=== PATIENT | female | born 1965 | race Two or more races ===

== ENCOUNTER 2020-05-18 12:02 | Outpatient (REF) | payer MEDICAID, SELFPAY | END 2020-05-18 12:03 | disposition home or self-care (01) | LOC: HO.LAB 12:02 | PROVIDERS: Visit Provider Internal Medicine | DX: Z20.828 Contact with and (suspected) exposure to other viral communicable diseases (principal) | CPT/HCPCS: C9803; U0003 ==

== ENCOUNTER 2020-07-18 17:21 | Emergency (ER) | payer MEDICAID, SELFPAY ==
[2020-07-18 17:44] VITALS: BP 125/70; PULSE 98; RESP 20; TEMP 37.1; O2SAT 100; BMI 25.0
[2020-07-18] MEDS: Acetaminophen 325 MG TABLET 650 MG PO (17:54)
[2020-07-18 18:24] LABS: Glucose Urine UA NEG (NEG); Leukocyte Esterase Urine 1+ (NEG); Nitrite Urine POS (NEG); PH 5.5 (5.0-8.0); Specific Gravity - Urine >= 1.030 (1.005-1.025); UACC Culture Trigger YES; Urine Blood 1+ (NEG); Urine Ketones NEG (NEG); Urine Protein TRACE MG/DL (NEG-TRACE)
[2020-07-18 18:26] LABS: Appearance Urine HAZY; Color Urine YELLOW
[2020-07-18 18:33] LABS: Bacteria Urine 3+ /LPF; Calcium Oxalate Crystals Urine 1+ /LPF; Squamous Epithelial Cell Urine 1+ /LPF
[2020-07-18 20:00] VITALS: BP 114/67; PULSE 73; RESP 18; TEMP 36.6; O2SAT 100
--- NOTE | 2020-07-18 20:38 | ED.GENADULT ---
HPI - General Adult General Chief complaint: General Medical Stated complaint: ?UTI Time Seen by Provider: 07/18/20 20:47 Source: patient Mode of arrival: ambulatory Limitations: no limitations History of Present Illness HPI narrative: 55-year-old female with past medical history of GERD, anxiety and depression, asthma, bipolar, fibromyalgia, migraines, and osteoarthritis presents with 4 days of bilateral flank pain, suprapubic pain, intermittent fevers and chills, fatigue, malaise and pyuria. She denies chest pain pressure, palpitations, shortness breath, abdominal distention, and edema. She also does not report any abnormal vaginal bleeding or discharge and denies risk for sexually transmitted infection. Related Data Previous Rx's Medication Instructions Recorded cefuroxime axetil 500 mg PO Q12H 7 Days #14 tab 07/18/20 phenazopyridine [Pyridium] 200 mg PO TID PRN #6 tab 07/18/20 Allergies Allergy/AdvReac Type Severity Reaction Status Date / Time codeine [Codeine] Allergy Mild RASH Verified 07/18/20 21:13 Penicillins Allergy Mild RASH Verified 07/18/20 21:13 penicillin V Allergy Unknown hives Verified 07/18/20 21:13 tape adhesive Allergy Mild rash Uncoded 07/18/20 21:13 Review of Systems Review of Systems: Constitutional: Positive Fever, positive Chills ENT/Mouth: No sore throat Eyes: No Eye Pain, No Swelling, No Redness Cardiovascular: No Chest Pain, No SOB Respiratory: No Cough, No Sputum, No Wheezing Gastrointestinal: positive Nausea, no Vomiting, No Diarrhea, positive abdominal pain Genitourinary: positive Dysuria, positive urinary frequency, positive Hematuria, positive Flank Pain, positive hesitancy Musculoskeletal: No joint pain, positive Myalgias Skin: No Skin Lesions, No rash Neuro: No Weakness, No Numbness, No Headache Psych: No Anxiety/Panic, No Depression Heme/Lymph: No Bruising, No Lymphadenopathy Endocrine: No Polyuria, No Polydipsia Yes all other systems are reviewed and are negative [facility] Past Medical History Attestation statement: The following information was validated with the patient. Source: old records reviewed Medical History Acid reflux Anxiety Asthma Bipolar 1 disorder Depression Fibromyalgia Migraine Osteoarthritis Social History Social History Alcohol intake: never Smoking Status: Never smoker Use of substances other than those prescribed or required for medical reasons: No Advance Directives: No Advance Directives Information Provided: No Physical Exam Vital Signs: Vital Signs: Last Vital Signs Temp 98.3 F 07/18/20 21:29 Pulse 74 07/18/20 21:29 Resp 17 07/18/20 21:29 BP 110/51 L 07/18/20 21:29 Pulse Ox 99 07/18/20 21:29 Body Mass Index 25.0 Appearance: Alert. Oriented X3. Mild distress. Eyes: Pupils equal, round and reactive to light. ENT: Pharynx normal. Neck: Normal inspection. Neck supple. CVS: Tachycardic heart rate and rhythm. Pulses normal. Respiratory: No respiratory distress. Breath sounds normal. Abdomen: Soft and tender to suprapubic, bilateral CVA tenderness Skin: Skin warm and dry. Normal skin color. Normal skin turgor. Extremities: No lower extremity edema. Neuro: No motor deficit. No sensory deficit. Course Course Course Narrative: 55-year-old female with past medical history of GERD, anxiety and depression, asthma, bipolar, fibromyalgia, migraines, and osteoarthritis presents with 4 days of bilateral flank pain, suprapubic pain, intermittent fevers and chills, fatigue, malaise and pyuria. Based on patient's symptoms and positive UTI and tachycardic heart rate upon arrival plan is for CBC, Chem 7, lactic, cultures, fluid resuscitation, IV antibiotics and CT scan of the abdomen. Lactic is-0.6, CT scan negative for acute findings requiring emergent intervention. Plan is for discharge home with p.o. antibiotics and Pyridium. Patient verbalized understanding of and agrees to plan of care to discharge home. Medical Decision Making Medical Records Medical records reviewed: Yes I reviewed the patient's medical records. Lab Data Lab results reviewed: Yes I reviewed the patient's lab results. Result diagrams: 07/18/20 21:11 07/18/20 21:11 Labs: Lab Results 07/18/20 07/18/20 07/18/20 Range/Units 17:51 21:11 21:11 WBC 8.7 (4.8-10.8) X10*3/uL RBC 4.74 (4.20-5.50) X10*6/uL Hgb 13.2 (12.0-16.0) g/dl Hct 39.7 (37-47) % MCV 83.8 (80-98) fL MCH 27.8 (27.0-33.0) pg MCHC 33.2 (31.0-35.0) g/dl RDW 13.3 (11.0-16.0) % Plt Count 191 (160-400) X10*3/uL MPV 11.5 (9.4-12.3) fL Immature Gran % (Auto) 0.2 (0.0-0.4) % Neut % (Auto) 70.0 (45-73) % Lymph % (Auto) 23.5 (20-40) % [place] % (Auto) 5.9 (2-11) % Eos % (Auto) 0.3 (0-4) % Baso % (Auto) 0.1 (0-2) % Lymph # (Auto) 2.0 (1.2-4.9) X10*3/uL [place] # (Auto) 0.5 (0.1-1.2) X10*3/uL Eos # (Auto) 0.0 (0.0-0.4) X10*3/uL Baso # (Auto) 0.0 (0.0-0.2) X10*3/uL Abs Immat Gran (auto) 0.02 (0.00-0.03) X10*3/uL Absolute Neuts (auto) 6.1 (2.0-8.3) X10*3/uL Absolute Nucleated RBC 0.000 (0.0-0.012) X10*3/uL Nucleated RBC % (auto) 0.0 (0.0-0.2) /100WBC PT (10.8-13.0) SEC INR (0.9-1.1) APTT (24.1-38.0) SEC Sodium 140 (135-145) mmol/L Potassium 3.9 (3.3-5.1) mmol/L Chloride 106 (96-108) mmol/L Carbon Dioxide 24 (22-29) mmol/L Anion Gap 14 (12-20) BUN 15 (9-16) mg/dL Creatinine 0.81 (0.5-1.4) mg/dL Estim Creat Clear Calc 74.3 Estimated GFR > 60 Random Glucose 90 (60-115) mg/dL Lactic Acid (0.5-2.0) mmol/L Calcium 9.6 (8.4-10.2) mg/dL Total Bilirubin 0.7 (0.0-1.0) mg/dL Direct Bilirubin 0.3 (0.0-0.5) mg/dL AST 24 (5-31) U/L ALT 20 (0-31) U/L Alkaline Phosphatase 68 (39-117) U/L Total Protein 7.3 (6.5-8.0) g/dL Albumin 5.0 (3.5-5.0) g/dL Lipase 15 (8-78) U/L Urine Color YELLOW Urine Appearance HAZY Urine pH 5.5 (5.0-8.0) Ur Specific [place] >= 1.030 H (1.005-1.025) Urine Protein TRACE (NEG-TRACE) MG/DL Urine Glucose (UA) NEG (NEG) MG/DL Urine Ketones NEG (NEG) MG/DL Urine Blood 1+ H (NEG) Urine Nitrite POS H (NEG) Ur Leukocyte Esterase 1+ H (NEG) Urine RBC 1-4 (0) /HPF Urine WBC 5-9 H (0-4) /HPF Ur Squamous Epith Cells 1+ /LPF Calcium Oxalate Crystal 1+ /LPF Urine Bacteria 3+ /LPF 07/18/20 07/18/20 Range/Units 21:11 21:49 WBC (4.8-10.8) X10*3/uL RBC (4.20-5.50) X10*6/uL Hgb (12.0-16.0) g/dl Hct (37-47) % MCV (80-98) fL MCH (27.0-33.0) pg MCHC (31.0-35.0) g/dl RDW (11.0-16.0) % Plt Count (160-400) X10*3/uL MPV (9.4-12.3) fL Immature Gran % (Auto) (0.0-0.4) % Neut % (Auto) (45-73) % Lymph % (Auto) (20-40) % [place] % (Auto) (2-11) % Eos % (Auto) (0-4) % Baso % (Auto) (0-2) % Lymph # (Auto) (1.2-4.9) X10*3/uL [place] # (Auto) (0.1-1.2) X10*3/uL Eos # (Auto) (0.0-0.4) X10*3/uL Baso # (Auto) (0.0-0.2) X10*3/uL Abs Immat Gran (auto) (0.00-0.03) X10*3/uL Absolute Neuts (auto) (2.0-8.3) X10*3/uL Absolute Nucleated RBC (0.0-0.012) X10*3/uL Nucleated RBC % (auto) (0.0-0.2) /100WBC PT 14.0 H (10.8-13.0) SEC INR 1.2 H (0.9-1.1) APTT 39.0 H (24.1-38.0) SEC Sodium (135-145) mmol/L Potassium (3.3-5.1) mmol/L Chloride (96-108) mmol/L Carbon Dioxide (22-29) mmol/L Anion Gap (12-20) BUN (9-16) mg/dL Creatinine (0.5-1.4) mg/dL Estim Creat Clear Calc Estimated GFR Random Glucose (60-115) mg/dL Lactic Acid 0.6 (0.5-2.0) mmol/L Calcium (8.4-10.2) mg/dL Total Bilirubin (0.0-1.0) mg/dL Direct Bilirubin (0.0-0.5) mg/dL AST (5-31) U/L ALT (0-31) U/L Alkaline Phosphatase (39-117) U/L Total Protein (6.5-8.0) g/dL Albumin (3.5-5.0) g/dL Lipase (8-78) U/L Urine Color Urine Appearance Urine pH (5.0-8.0) Ur Specific [place] (1.005-1.025) Urine Protein (NEG-TRACE) MG/DL Urine Glucose (UA) (NEG) MG/DL Urine Ketones (NEG) MG/DL Urine Blood (NEG) Urine Nitrite (NEG) Ur Leukocyte Esterase (NEG) Urine RBC (0) /HPF Urine WBC (0-4) /HPF Ur Squamous Epith Cells /LPF Calcium Oxalate Crystal /LPF Urine Bacteria /LPF Imaging Data CT scan - abdomen: Attestation: I personally reviewed and interpreted this imaging study as follows: Radiologist's impression: EXAMINATION: CT ABDOMEN AND PELVIS WITHOUT CONTRAST CLINICAL INFORMATION: Bilateral flank pain COMPARISON: 10/28/2019 TECHNIQUE: Multidetector volumetric imaging was performed from the superior aspect of the liver through the pubic symphysis. Sagittal and coronal reformatted images were obtained on the technologist's workstation. This CT examination was performed using dose optimization techniques as appropriate, variously including the following: *Automated exposure control *Adjustment of mA and/or kV according to patient size (this includes techniques or standardized protocols for targeted exams where dose is matched to indication/reason for exam; i.e. extremities or head) *Use of iterative reconstruction technique DLP: 423 mGy-cm FINDINGS: LUNG BASES: The visualized lung bases are unremarkable. LIVER, GALLBLADDER, AND BILIARY TREE: The liver is normal in size, shape, and attenuation. No focal hepatic lesion or biliary ductal dilatation is present. Status postcholecystectomy. PANCREAS: Unremarkable. SPLEEN: Unremarkable. ADRENAL GLANDS: Unremarkable. KIDNEYS AND URETERS: The kidneys are normal in size, shape, and attenuation. No hydronephrosis, hydroureter, or calculi seen. No perinephric stranding. BLADDER: Underdistended limiting evaluation. Coarse calcifications at the base of the bladder, similar to previous. GASTROINTESTINAL TRACT: Stomach is partially distended with luminal contents. No dilated small or large bowel loops. No acute inflammatory changes are evident with the bowel loops. Appendix is normal. ABDOMINAL WALL: No significant hernia is appreciated. Neural stimulator pack in the left flank. LYMPH NODES: No lymphadenopathy. VASCULAR: Normal caliber aorta. PELVIC VISCERA: Retroverted uterus. No adnexal masses. OSSEOUS STRUCTURES: No suspicious findings CT/CT abdomen pelvis wo con IMPRESSION: 1. No evidence of renal or ureteral calculi. No hydronephrosis. 2. No acute findings otherwise identified in the abdomen or pelvis. Discharge Plan Discharge Clinical Impression: UTI (urinary tract infection) Qualifiers: Urinary tract infection type: acute cystitis Hematuria presence: with hematuria Qualified Code(s): N30.01 - Acute cystitis with hematuria Patient Disposition: Home, Self-Care Instructions: Urinary Tract Infection in Women (ED) Additional Instructions: You were evaluated for symptoms consistent with UTI. Urinalysis is positive for bacteria, nitrites and leukocyte esterase. We will treat you with p.o. antibiotics and Pyridium. Urine have blood in it, you must follow-up with your primary care physician to have a repeat urinalysis to ensure that the hematuria has resolved. Thank you for choosing this emergency department for evaluation. Please follow-up with primary care physician as needed. Return to the emergency department for any new, concerning, or worsening symptoms. Prescriptions: New cefuroxime axetil 500 mg tablet 500 mg PO Q12H 7 Days Qty: 14 RF: 0 phenazopyridine [Pyridium] 200 mg tablet 200 mg PO TID PRN (Reason: pain) Qty: 6 RF: 0
[2020-07-18] MEDS: Ketorolac Tromethamine 30 MG/ML VIAL IVPUSH ×2 (21:14→23:21)
[2020-07-18] MEDS: 0.9 % Sodium Chloride 1,000 ML 999 ML IVCONT ×2 (21:14)
[2020-07-18 21:29] VITALS: BP 110/51; PULSE 74; RESP 17; TEMP 36.8; O2SAT 99
[2020-07-18 21:35] LABS: MANUAL DIFF FLAG NO
[2020-07-18 21:37] LABS: Basophils Percent Auto 0.1 % (0-2); Eosinophils Percent Auto 0.3 % (0-4); Hematocrit 39.7 % (37-47); Hemoglobin 13.2 g/dl (12.0-16.0); Imm Gran Abs Auto 0.02 X10*3/uL (0.00-0.03); Imm Gran Pct Auto 0.2 % (0.0-0.4); Lymphocytes Percent Auto 23.5 % (20-40); Mean Corpuscular HGB Conc 33.2 g/dl (31.0-35.0); Mean Corpuscular Hemoglobin 27.8 pg (27.0-33.0); Mean Corpuscular Volume 83.8 fL (80-98); Mean Platelet Volume 11.5 fL (9.4-12.3); Monocytes Absolute Auto 0.5 X10*3/uL (0.1-1.2); Monocytes Percent Auto 5.9 % (2-11); Neutrophils Absolute Auto 6.1 X10*3/uL (2.0-8.3); Platelet Count 191 X10*3/uL (160-400); Red Blood Count 4.74 X10*6/uL (4.20-5.50); Red Cell Distribution Width 13.3 % (11.0-16.0); White Blood Count 8.7 X10*3/uL (4.8-10.8)
[2020-07-18 21:54] LABS: Lactic Acid 0.6 mmol/L (0.5-2.0)
[2020-07-18 22:01] LABS: Alanine Aminotransferase 20 U/L (0-31); Alkaline Phosphatase 68 U/L (39-117); Anion Gap 14 (12-20); Aspartate Amino Transferase 24 U/L (5-31); Bilirubin Direct 0.3 mg/dL (0.0-0.5); Bilirubin Total 0.7 mg/dL (0.0-1.0); Blood Urea Nitrogen 15 mg/dL (9-16); Calcium 9.6 mg/dL (8.4-10.2); Carbon Dioxide 24 mmol/L (22-29); Chloride 106 mmol/L (96-108); Creatinine Clr Calc Pharmacy 74.3; Estimated Glomerular Filt Rate > 60; Glucose Random 90 mg/dL (60-115); Lipase 15 U/L (8-78); Potassium 3.9 mmol/L (3.3-5.1); Sodium 140 mmol/L (135-145); Total Protein 7.3 g/dL (6.5-8.0)
[2020-07-18 22:04] LABS: INTERNATIONAL NORM RATIO 1.2 (0.9-1.1)
[2020-07-18] MEDS: cefTRIAXone sodium 1 GM in 0.9 % Sodium Chloride 50 ML IV (22:32)
== END 2020-07-18 23:37 | disposition home or self-care (01) ==
PROVIDERS: Nurse Practitioner Family; Emergency Provider Internal Medicine; PCP Internal Medicine
DX: N30.01 Acute cystitis with hematuria (principal)
CPT/HCPCS: 36415; 74176; 80048; 80076; 81001; 81003; 83605; 83690; 85025; 85610; 85730; 87040; 87086; 87088; 87186; 96361; 96374; 96375; 96376; 99284; J0696; J1885

== ENCOUNTER 2021-01-28 10:30 | Outpatient (REF) | payer MEDICAID, SELFPAY ==
--- NOTE | ~2021-01-28 | MM_ITS ---
EXAMINATION: MM SCREENING DIGITAL BREAST TOMOSYNTHESIS, BILATERAL CLINICAL INFORMATION: Screening. Asymptomatic. The lifetime risk of breast cancer based on the Tyrer-Cuzick Model is 7%. COMPARISON: Mammography: 12/03/2018, 05/31/2018, 11/27/2017,, 05/23/2017, 10/31/2016, 10/24/2016 TECHNIQUE: Digital breast tomosynthesis is performed in both the craniocaudal and mediolateral oblique views along with computer-aided detection (CAD). Synthesized 2D images are generated from the tomosynthesis. FINDINGS: There are scattered areas of fibroglandular density (ACR BI-RADS breast composition Category b). There are no significant masses, abnormal calcifications, or other abnormalities. There is no developing density. Biopsy clip marker again noted posterior upper outer right breast. There are stable fine calcifications posterior upper outer left breast. The skin contours are smooth. No significant changes. MM/MM tomosynthesis screening BI IMPRESSION: No mammographic evidence of malignancy. ASSESSMENT: BI-RADS 2: Benign RECOMMENDATION: Routine annual mammography screening. This patient's information was entered into a reminder system with a target due date for their next mammogram.
== END 2021-01-28 10:31 | disposition home or self-care (01) ==
LOC: HO.MAMMO 10:30
PROVIDERS: Visit Provider Internal Medicine
DX: Z12.31 Encounter for screening mammogram for malignant neoplasm of breast (principal)
CPT/HCPCS: 77063; 77067

== ENCOUNTER 2021-03-11 11:53 | Outpatient (REF) | payer MEDICAID, SELFPAY | END 2021-03-11 11:54 | disposition home or self-care (01) | LOC: HO.LAB 11:53 | PROVIDERS: PCP Internal Medicine; Visit Provider Internal Medicine | DX: Z20.822 Contact with and (suspected) exposure to COVID-19 (principal) | CPT/HCPCS: C9803; U0003; U0005 ==

== ENCOUNTER 2021-05-19 08:56 | Outpatient (REF) | payer MEDICAID, SELFPAY ==
--- NOTE | ~2021-05-19 | MR_ITS ---
EXAMINATION: MR BRAIN WITHOUT CONTRAST CLINICAL INFORMATION: Memory problems. Headaches. Rule out temporal lobe lesion. COMPARISON: MRI dated 01/07/2011. Head CT from 07/24/2015. TECHNIQUE: Multiplanar, multisequence imaging of the brain was performed without contrast. FINDINGS: No diffusion abnormalities are identified to suggest an acute or subacute infarct. The ventricles are normal in size. No mass effect or midline shift is seen. A few scattered punctate foci of T2 hyperintense signal change in the centrum semiovale are nonspecific. No extra-axial fluid collections are seen. The brainstem and cerebellum are normal. The hippocampi are normal in appearance. The gradient refocused acquisition is normal. The craniovertebral junction, marrow signal, and midline structures are normal. The major intracranial flow voids at the level of the lime of [place] are preserved. The dural venous sinus flow voids are maintained. The mastoid air cells are well aerated. There is moderate mucosal thickening in the nondominant right sphenoid sinus and mild ethmoid sinus mucosal thickening. MR/MR head/brain wo con IMPRESSION: No acute process. Minimal scattered foci of signal change in the centrum semiovale of indeterminate clinical significance. No hippocampal pathology. Otherwise, relatively normal MRI of the brain. Moderate right sphenoid sinus mucosal thickening.
== END 2021-05-19 08:57 | disposition home or self-care (01) ==
LOC: HO.MRI 08:56
PROVIDERS: Visit Provider Psychiatry & Neurology Neurology
DX: R41.3 Other amnesia (principal)
CPT/HCPCS: 70551

== ENCOUNTER 2022-03-15 11:43 | Outpatient (REF) | payer MEDICAID, SELFPAY ==
--- NOTE | ~2022-03-15 | MM_ITS ---
EXAMINATION: MM SCREENING DIGITAL BREAST TOMOSYNTHESIS, BILATERAL CLINICAL INFORMATION: Screening. Asymptomatic. The lifetime risk of breast cancer based on the Tyrer-Cuzick Model is 6%. COMPARISON: Mammography: 01/28/2021, 12/03/2018, 05/31/2018 TECHNIQUE: Digital breast tomosynthesis is performed in both the craniocaudal and mediolateral oblique views along with computer-aided detection (CAD). Synthesized 2D images are generated from the tomosynthesis. FINDINGS: There are scattered areas of fibroglandular density (ACR BI-RADS breast composition Category b). There are no significant masses, abnormal calcifications, or other abnormalities. No developing density or architectural abnormality. Biopsy clip marker again noted posterior upper outer right breast. The axilla are unremarkable. Skin contours are smooth. MM/MM tomosynthesis screening BI IMPRESSION: No mammographic evidence of malignancy. ASSESSMENT: BI-RADS 1: Negative RECOMMENDATION: Routine annual mammography screening. This patient's information was entered into a reminder system with a target due date for their next mammogram.
== END 2022-03-15 11:44 | disposition home or self-care (01) ==
LOC: HO.MAMMO 11:43
PROVIDERS: PCP Internal Medicine; Visit Provider Internal Medicine
DX: Z12.31 Encounter for screening mammogram for malignant neoplasm of breast (principal)
CPT/HCPCS: 77063; 77067

== ENCOUNTER → 2022-05-03 10:06 | Outpatient (BNVA) | payer MEDICAID, SELFPAY | PROVIDERS: PCP Internal Medicine; Visit Provider Surgery Vascular Surgery | DX: I83.11 Varicose veins of right lower extremity with inflammation (principal) | CPT/HCPCS: 99212 ==

== ENCOUNTER 2022-05-24 08:27 | Outpatient (REF) | payer MEDICAID, SELFPAY ==
--- NOTE | ~2022-05-24 | US_ITS ---
EXAMINATION: US LOWER EXTREMITY VENOUS (REFLUX EXAM), BILATERAL CLINICAL INDICATION: Chronic venous insufficiency with lower extremity varicose veins COMPARISON: None. TECHNIQUE: Color flow triplex imaging and compression Doppler was performed to evaluate both the deep and the superficial systems bilaterally. To evaluate the superficial system, the examination was performed in the upright position. Color-flow Doppler ultrasound and compression ultrasound were utilized. In addition, maneuvers were utilized to demonstrate reflux. FINDINGS: 1. DEEP VENOUS ULTRASOUND OF THE RIGHT LOWER EXTREMITY: Common Femoral Vein: Compressible, normal respiratory variation and augmented flow. Femoral Vein: Compressible, normal color flow and augmentation. Popliteal Vein: Compressible, normal augmentation. Deep Reflux: There is no evidence of reflux in the deep system in either the common femoral vein or the popliteal vein. There is no evidence of a Alcala's cyst. 2. SUPERFICIAL ULTRASOUND WITH DOPPLER OF RIGHT LOWER EXTREMITY: GREAT SAPHENOUS VEIN: Saphenofemoral Junction: 0.6 cm; Reflux: 0 ms Proximal Thigh: 0.3 cm; Reflux: 0 ms Mid Thigh: 0.3 cm; Reflux: 1720 ms Above Knee: 0.3 cm; Reflux: 0 ms At Knee: 0.2 cm; Reflux: 0 ms Below Knee: 0.2 cm; Reflux: 0 ms Mid Calf: 0.2 cm; Reflux: 0 ms Ankle: 0.2 cm; Reflux: 0 ms DUPLICATED MEDIAL GREAT SAPHENOUS VEIN: Diameter: None Imaged Reflux: NA DUPLICATED LATERAL GREAT SAPHENOUS VEIN: Diameter: 0.3 cm Reflux: None SMALL SAPHENOUS VEIN: Proximal: 0.1 cm; Reflux: 0 ms Distal: 0.1 cm; Reflux: 0 ms VEIN OF GIACOMINI: None Imaged. PERFORATORS: Location: None significant Size: NA Reflux: NA VARICOSITIES: Location: None significant Size: NA Reflux: NA 3. DEEP VENOUS ULTRASOUND OF THE LEFT LOWER EXTREMITY: Common Femoral Vein: Compressible, normal respiratory variation and augmented flow. Femoral Vein: Compressible, normal color flow and augmentation. Popliteal Vein: Compressible, normal augmentation. Deep Reflux: There is no evidence of reflux in the deep system in either the common femoral vein or the popliteal vein. There is no evidence of a Alcala's cyst. 4. SUPERFICIAL ULTRASOUND WITH DOPPLER OF LEFT LOWER EXTREMITY: GREAT SAPHENOUS VEIN: Saphenofemoral Junction: 0.5 cm; Reflux: 0 ms Proximal Thigh: 0.3 cm; Reflux: 0 ms Mid Thigh: 0.3 cm; Reflux: 2992 ms Above Knee: 0.2 cm; Reflux: 0 ms At Knee: 0.2 cm; Reflux: 0 ms Below Knee: 0.2 cm; Reflux: 0 ms Mid Calf: 0.1 cm; Reflux: 0 ms Ankle: 0.1 cm; Reflux: 0 ms DUPLICATED MEDIAL GREAT SAPHENOUS VEIN: Diameter: None Imaged Reflux: NA DUPLICATED LATERAL GREAT SAPHENOUS VEIN: Diameter: 0.3 cm Reflux: None SMALL SAPHENOUS VEIN: Proximal: 0.3 cm; Reflux: 0 ms Distal: 0.1 cm; Reflux: 0 ms VEIN OF GIACOMINI: None Imaged. PERFORATORS: Location: None significant Size: NA Reflux: NA VARICOSITIES: Location: None significant Size: NA Reflux: NA US/US venous duplex LE BI IMPRESSION: Right: Focal area of reflux in the great saphenous vein within the mid thigh. No significant reflux throughout the right lower extremity otherwise Left: Focal area of reflux in the great saphenous vein within the mid thigh. No significant reflux throughout the left lower extremity otherwise
== END 2022-05-24 08:28 | disposition home or self-care (01) ==
LOC: HO.US 08:27
PROVIDERS: PCP Internal Medicine; Visit Provider Surgery Vascular Surgery
DX: I83.11 Varicose veins of right lower extremity with inflammation (principal)
CPT/HCPCS: 93970

== ENCOUNTER 2022-07-06 15:54 | Outpatient (REF) | payer MEDICAID, SELFPAY ==
[2022-07-06 16:04] LABS: MANUAL DIFF FLAG NO
[2022-07-06 16:48] LABS: Basophils Percent Auto 0.2 % (0-2); Eosinophils Percent Auto 0.1 % (0-4); Hematocrit 43.4 % (37.0-47.0); Hemoglobin 14.2 g/dl (12.0-16.0); Imm Gran Abs Auto 0.03 X10*3/uL (0.00-0.03); Imm Gran Pct Auto 0.4 % (0.0-0.4); Lymphocytes Absolute Auto 2.1 X10*3/uL (1.2-4.9); Lymphocytes Percent Auto 24.8 % (20-40); Mean Corpuscular HGB Conc 32.7 g/dl (31.0-35.0); Mean Corpuscular Hemoglobin 27.5 pg (27.0-33.0); Mean Corpuscular Volume 84.1 fL (80.0-98.0); Mean Platelet Volume 10.7 fL (9.4-12.3); Monocytes Absolute Auto 0.4 X10*3/uL (0.1-1.2); Monocytes Percent Auto 5.3 % (2-11); Neutrophils Absolute Auto 5.7 x10*3/uL (2.0-8.3); Neutrophils Percent Auto 69.2 % (45-73); Platelet Count 220 X10*3/uL (160-400); Red Blood Count 5.16 X10*6/uL (4.20-5.50); Red Cell Distribution Width 12.9 % (11.0-16.0); White Blood Count 8.3 X10*3/uL (4.8-10.8)
[2022-07-06 17:15] LABS: Alanine Aminotransferase 17 U/L (0-31); Albumin Level 4.8 g/dL (3.5-5.0); Alkaline Phosphatase 81 U/L (39-117); Amylase 77 U/L (28-100); Aspartate Amino Transferase 19 U/L (5-31); Bilirubin Direct < 0.2 mg/dL (0.0-0.5); Bilirubin Total 0.4 mg/dL (0.0-1.0); Lipase 22 U/L (8-78); Total Protein 7.5 g/dL (6.5-8.0)
== END 2022-07-06 15:55 | disposition home or self-care (01) ==
LOC: HO.LAB 15:54
PROVIDERS: PCP Internal Medicine; Visit Provider Internal Medicine
DX: R10.13 Epigastric pain (principal)
CPT/HCPCS: 36415; 80076; 82150; 83690; 85025

== ENCOUNTER 2022-08-17 09:59 | Day surgery (SDC) | payer MEDICAID, SELFPAY ==
--- NOTE | 2022-08-17 08:05 | P.CONAN_ITS ---
[facility] Active Problems Active Problems: All Active Problems (Updated 08/16/22 @ 13:41 by Mariluz Ramos RN) Varicose veins of right lower extremity with inflammation (Acute) Past Medical History Medical History (Updated 08/16/22 @ 13:41 by Mariluz Ramos RN) Acid reflux Anxiety Arthritis Asthma Bipolar 1 disorder Depression Fibromyalgia IBS (irritable bowel syndrome) Memory loss Migraine Osteoarthritis Peripheral neuropathy Family History Family history of problems with anesthesia: No Surgical History Surgical History (Updated 08/16/22 @ 13:41 by Mariluz Ramos RN) H/O dilation and curettage H/O left inguinal hernia repair History of bilateral tubal ligation History of cholecystectomy History of eyelid surgery History of Problems with Anesthesia: No Social History Social History Alcohol intake: never Advance Directives: No Advance Directives Information Provided: Yes Meds Allergies Allergy/AdvReac Type Severity Reaction Status Date / Time codeine [Codeine] Allergy Mild RASH Verified 05/03/22 10:22 Penicillins Allergy Mild RASH Verified 05/03/22 10:22 penicillin V Allergy Unknown hives Verified 05/03/22 10:22 tape adhesive Allergy Mild rash Uncoded 05/03/22 10:22 Home Medications Medication Instructions Recorded Confirmed Last Taken Type famotidine 20 mg tablet 20 mg PO BID 05/03/22 Unknown History gabapentin 800 mg tablet 800 mg PO TID 05/03/22 Unknown History omeprazole 40 mg capsule,delayed 40 mg PO DAILY 05/03/22 Unknown History release sumatriptan succinate 100 mg tablet 0 mg PO 05/03/22 Unknown History tramadol 50 mg tablet 50 mg PO Q6H PRN 05/03/22 Unknown History amitriptyline 100 mg tablet 1 tab BEDTIME 08/16/22 08/16/22 Unknown History cyclobenzaprine 10 mg tablet 1 tab PO TID PRN pain 08/16/22 08/16/22 Unknown History fluticasone propionate 50 2 spray intranasal DAILY PRN 08/16/22 08/16/22 Unknown History mcg/actuation nasal Allergy Symptoms spray,suspension hydroxyzine HCl 50 mg tablet 1 tab PO BID PRN Anxiety 08/16/22 08/16/22 Unknown History mirtazapine 15 mg tablet 1 tab BEDTIME 08/16/22 08/16/22 Unknown History omeprazole 40 mg capsule,delayed 1 cap PO DAILY 08/16/22 08/16/22 Unknown History release topiramate 50 mg tablet 1 tab PO BID 08/16/22 08/16/22 Unknown History zolpidem 10 mg tablet 1 tab PO BEDTIME PRN insomnia 08/16/22 08/16/22 Unknown History Exam Exam Date and Time: August 17, 2022 0805 Airway Mallampati Class: II TM Dist: >3cm Neck ROM: Full Heart: rrr Lungs: cta Assessment and Plan Assessment Anesthesia Assessment: Anesthesia Plan Discussed and Chart Reviewed Final Anesthetic Review Family History of Problems with Anesthesia: No History of Problems with Anesthesia: No NPO: Yes ASA Class: III Final Preanesthetic Review: No Changes in Pt Med Stat, Meds/Allgs Chart Reviewed and Consent Obtained/Reviewed Patient Risk: Intermediate Procedure Risk: Intermediate Anesthetic Plan Anesthetic Plan: MAC: Disposition: Standard PACU
[2022-08-17 10:14] VITALS: BMI 26.6
[2022-08-17] MEDS: Lactated Ringers 1,000 ML 50 ML IVCONT (10:26)
[2022-08-17 10:30] VITALS: BP 92/57; PULSE 67; RESP 18; TEMP 36.6; O2SAT 96
[2022-08-17 12:17] VITALS: BP 85/53; PULSE 90; RESP 14; TEMP 36.2; O2SAT 98
--- NOTE | 2022-08-17 12:18 | PM.OP ---
Brief Operative Note Date of Service: 08/17/22 Pre-op diagnosis: GERD, Abdominal pain Post-op diagnosis: other (Hiatal hernia, GERD, Gastritis) Procedure: EGD with biopsies Surgeon: Chico Torres Anesthesia: MAC Was an Assistant Center Director used for this Procedure?: No Estimated blood loss (mL): 2.0 Pathology: other (A. Gastric antrum B. EG Junction at 35cm) Condition: stable Disposition: PACU
[2022-08-17 12:33] VITALS: BP 99/63; PULSE 79; RESP 18; TEMP 36.2; O2SAT 99
--- NOTE | 2022-08-17 15:22 | OP_ITS ---
SURGEON: Chico Torres MD INDICATIONS: The patient presents for evaluation of abdominal pain and reflux. Full consent has been obtained from her for this, including risks of bleeding and perforation. PREOPERATIVE DIAGNOSIS: POSTOPERATIVE DIAGNOSIS: PROCEDURE PERFORMED: Esophagogastroduodenoscopy with biopsies. ESTIMATED BLOOD LOSS: COMPLICATIONS: ANESTHESIA: Monitored anesthesia care. ASSISTANTS: SPECIMENS: PREOPERATIVE DIAGNOSES: Gastroesophageal reflux and abdominal pain. POSTOPERATIVE DIAGNOSES: Gastroesophageal reflux and abdominal pain, hiatal hernia, mild gastritis. DESCRIPTION OF PROCEDURE: The patient was placed in the left lateral decubitus position. The Olympus video gastroscope was passed in the posterior oropharynx and upper esophagus under direct vision. The scope was passed slowly to the distal esophagus. The gastroesophageal junction appeared at 35 cm. There is some slight irregularity consistent with reflux, but no evidence of any ulceration nor esophagitis. The tissue was somewhat friable. The scope entered into the stomach. There was a [id number] size hiatal hernia. The hiatal hernia mucosa appeared normal. The scope was advanced to the pylorus, and the duodenum was cannulated to the descending portion. The duodenum including the bulb appeared normal without mass or ulceration. The scope was withdrawn back in the stomach. The gastric antrum and body had some mild areas of erythema and edema, but no ulceration or erosions. There was good peristalsis. Biopsies were obtained from the antrum. The scope was retroflexed visualizing the proximal stomach carefully, which appeared normal, without any sign of mass or ulceration. The scope was straightened and withdrawn back in the esophagus. Biopsies were obtained at the EG junction at 35 cm. Proximal to this, the esophageal mucosa appeared normal. The scope was withdrawn from the patient. She tolerated the procedure well and was returned to the recovery area in stable condition. IMPRESSION: 1. Hiatal hernia, gastroesophageal reflux. 2. Mild gastritis. PLAN: The results of the biopsies will be checked. She was advised to continue her current regimen of omeprazole. If she is doing well, she can see me on a p.r.n. basis. If H pylori is present in the gastric biopsy, I would not necessarily treat that at this time as long as she remaining asymptomatic. She was advised not to use any aspirin nor NSAIDs for at least 1 week. She will be due for a colonoscopy for screening in 2024. MD KIRIT Ace/ALEE / [id number] KATT
== END 2022-08-17 13:29 | disposition home or self-care (01) ==
PROVIDERS: PCP Internal Medicine; Visit Provider Internal Medicine
PROC: 0DJ08ZZ Inspection of Upper Intestinal Tract, Via Natural or Artificial Opening Endoscopic (ICD-10-PCS; CPT 43235; principal; 2022-08-17 10:20)
DX: K21.9 Gastro-esophageal reflux disease without esophagitis (principal); K29.50 Unspecified chronic gastritis without bleeding; K44.9 Diaphragmatic hernia without obstruction or gangrene; K58.9 Irritable bowel syndrome, unspecified; M79.7 Fibromyalgia; J45.909 Unspecified asthma, uncomplicated; Z79.899 Other long term (current) drug therapy; Z79.51 Long term (current) use of inhaled steroids
CPT/HCPCS: 43239; 88305; 88342; J2250

== ENCOUNTER 2023-01-23 19:30 | Emergency (ER) | payer MEDICAID, SELFPAY ==
--- OUTSIDE RECORDS SUMMARY | 2023-01-23 21:16 | XMS_ITS ---
Author Name Chico Torres Address [address] [place] [address] Organization [facility] Address [address] [place] [address] Care Team Providers Care Lower In Supervisor Name Role Phone Chico Torres Unavailable [phone] PROBLEMS Type Condition ICD9-CM Code SCB07-JX Code Onset Dates Condition Status SNOMED Code Problem Gastritis K29.70 Active 4654962 Problem Gastroesophageal reflux disease K21.9 Active Problem Abdominal pain, epigastric R10.13 Active 39576199 Problem Gastroesophageal reflux disease, esophagitis presence not specified K21.9 Active 870732125 Problem Gastroesophageal reflux disease, unspecified whether esophagitis present K21.9 Active Problem Epigastric abdominal pain R10.13 Active ALLERGIES Substance Reaction Event Type Date Status Codeine Sulfate Unknown Drug Allergy Jun, Activ e Penicillin Unknown Drug Allergy Jun, Active ENCOUNTERS Encounter Location Date Diagnosis [facility] Outpatient [address] [place] [phone] Aug, Hiatal hernia K44.9 ; Gastroesophageal reflux disease K21.9 ; Gastritis K29.70 and Abdominal pain R10.9 [facility] [address] [place] [address] Jun, Epigastric abdominal pain R10.13 and Gastroesophageal reflux disease, unspecified whether esophagitis present K21.9 [facility] [address] [place] [address] Mar, Gastroesophageal reflux disease, esophagitis presence not specified K21.9 and Abdominal pain, epigastric R10.13 [facility] [address] [place] [address] Dec, [facility] [address] [place] [address] Sep, [facility] Outpatient [address] [place], [place] [id number] Sep, [facility] [address] [place] [address] Jul, [facility] [address] [place] [address] Jul, Blood in stool 578.1 ; Irritable bowel syndrome 564.1 and Esophageal reflux 530.81 [facility] [address] [place] Apr, [facility] [address] [facility] [place] [address] Jan, [facility] [address] [facility] [place] [address] Nov, [facility] [address] [facility] [place] [address] Nov, [facility] [address] [place] [address] [place] October, Irritable bowel syndrome 564.1 and Esophageal reflux 530.81 [facility] [address] [facility] [place] [address] Aug, [facility] [address] [place] [address] May, [facility] Outpatient [address] [place], [place] [id number] May, [facility] [address] [place] [address] [place] [address] Apr, Abdominal pain, epigastric 789.06 [facility] [address] [facility] [place] [address] Apr, [facility] [address] [place] [address] [place] [address] Apr, [facility] ER [address] [place], [place] [id number] Jan, [facility] ER [address] [place], [place] [phone] Sep, [facility] Outpatient [address] [place], [place] [phone] Aug, [facility] ER [address] [place], [place] [phone] Jun, [facility] ER [address] [place], [place] [id number] Nov, [facility] ER [address] [place], [place] [id number] Mar, IMMUNIZATIONS Vaccine Route Administration Date Status Influenza Unknown Mar 19, 2022 Administered SOCIAL HISTORY Never Assessed REASON FOR REFERRAL FUNCTIONAL STATUS PLAN OF CARE Activity Details VITAL SIGNS Weight 165 lbs 2022-07-06 Weight 171 lbs 2019-03-19 Weight 166 lbs 2014-07-31 Weight 158 lbs 2011-10-21 Weight 157 lbs 2011-04-28 Height 66 in 2022-07-06 Height 66 in 2019-03-19 Height 66 in 2014-07-31 Height N/A in 2011-10-21 Height 66 in 2011-04-28 BMI 26.63 kg/m2 2022-07-06 BMI 27.60 kg/m2 2019-03-19 BMI 26.79 kg/m2 2014-07-31 BMI 25.50 kg/m2 2011-10-21 BMI 25.34 kg/m2 2011-04-28 Heart Rate 76 /min 2019-03-19 Heart Rate 76 /min 2011-10-21 Temperature 98.0 degrees Fahrenheit Blood pressure systolic 000 mm Hg Blood pressure diastolic 00 mm Hg 2022-06 MEDICATIONS Medication Instructions Dosage Frequency Start Date End Date Duration Status Pain Relief Extra Strength 500 MG TAKE 1 TABLET BY MOUTH EVERY 4 - 6 HOURS NEEDED NOT TO EXCEED 8 TABLETS PER 24HRS 15 Active Cyclobenzaprine HCl 10 MG TAKE 1 TABLET BY MOUTH THREE TIMES A DAY NEEDED 30 Active traMADol HCl 50 MG TOME JJ TABLETA CADA SEIS HORAS CUANDO SEA NECESARIO 28 Active MetroGel-Vaginal 0.75 % Vaginal Once a day 1 applicatorful at bedtime 24h 5 day(s) Active Gabapentin 800 MG Orally three times a day 1 tablet 8h Active Fluticasone Propionate 50 MCG/ACT INHALE 2 SPRAY BY INTRANASAL ROUTE EVERY DAY IN EACH NOSTRIL NEEDED 30 Active Loratadine 10 MG Orally Once a day 1 tablet 24h 30 day(s) Active Acetaminophen Extra Strength 500 MG TAKE 1 TABLET BY ORAL ROUTE EVERY 4 - 6 HOURS NEEDED NOT TO EXCEED 8 TABLETS PER 24HRS 30 Active Famotidine 20 MG TOME JJ TABLETA DOS VECES AL D A 90 Active Maalox Max 400-400-40 MG/5ML Orally Four times a day 10 ml as needed 6h Active Topiramate 25 MG TAKE 1 TABLET BY MOUTH TWICE A DAY 30 Active Amitriptyline HCl 100 MG TAKE 1 TABLET BY MOUTH EVERYDAY AT BEDTIME 30 Active Omeprazole 40 MG Orally Once a day 1 capsule 24h Active Lidocaine 5 % APPLY 1 PATCH EVERY DAY MAY WEAR UP TO 12 HOURS 30 Active hydrOXYzine HCl 50 MG TAKE 1 TO 2 TABLETS BY MOUTH AT BEDTIME NEEDED FOR INSOMNIA 30 Active Flovent HFA 110 MCG/ACT Inhalation Twice a day 1 puff 12h Active Fluticasone Propionate (Inhal) 50 MCG/BLIST Inhalation Twice a day 1 puff 12h Active Ikwuerfmof-GHBZ-C affeine 50-325-40 MG TAKE 1 TABLET BY MOUTH EVERY 6 HOURS NEEDED 30 Active Zolpidem Tartrate 10 MG (Schedule IV Drug) TAKE 1 TABLET AT BEDTIME NEEDED FOR INSOMNIA 30 Active Ventolin HFA 108 (90 Base) MCG/ACT TOME DOS INHALACIONES POR V A ORAL CADA CUATRO A SEIS HORAS CUANDO SEA NECESARIO 17 Active Vitamin D (Ergocalciferol) 78926 UNIT TAKE ONE CAPSULE BY MOUTH ONE TIME PER WEEK 28 Active ProAir HFA 108 (90 Base) MCG/ACT Inhalation every 6 hrs 2 puffs as needed 6h Active SUMAtriptan Succinate 100 MG TAKE 1 TABLET AT ONSET AND EVERY 4 HOURS NEEDED ORALLY UP TO TWICE A DAY 30 DAYS 30 Active Meloxicam 15 MG TAKE 1 TABLET BY MOUTH EVERY DAY 30 Active Mirtazapine 45 MG Orally Once a day 1 tablet at bedtime 24h 30 day(s) Active PROCEDURES Procedure Date Ordered Result Body Site TOBACCO NON-USER Mar 19, 2019 DOC MEDS VERIFIED W/PT OR RE Mar 19, 2019 DOC MEDS VERIFIED W/PT OR RE Jul 06, 2022 COLORECTAL CA SCREEN DOC REV Mar 19, 2019 COLORECTAL CA SCREEN DOC REV Jul 06, 2022 UPPER GI ENDOSCOPY, BIOPSY August 17, 2022 BP SCR NOT PRFRM REC REASON NOS Jul 06, 2022 BP SCR PRFRM RCMDD DEFIND SCR INTVL Mar 19, 2019 TOBACCO NON-USER Jul 06, 2022 RESULTS Name Result Date Reference Range Complete Blood Count Auto Diff 2022-07-06 White Blood Count 8.3 4.8-10.8 Red Blood Count 5.16 4.20-5.50 Hemoglobin 14.2 12.0-16.0 Hematocrit 43.4 37.0-47.0 Mean Corpuscular Volume 84.1 80.0 -98.0 Mean Corpuscular Hemoglobin 27.5 27.0-33.0 Mean Corpuscular HGB Conc 32.7 31 .0-35.0 Red Cell Distribution Width 12.9 11.0-16.0 Platelet Count 220 160-400 Mean Platelet Volume 10.7 9.4-12. 3 Neutrophils Percent Auto 69.2 45- 73 Imm Gran Pct Auto 0.4 0.0-0.4 Lymphocytes Percent Auto 24.8 20- 40 Monocytes Percent Auto 5.3 2-11 Eosinophils Percent Auto 0.1 0-4 Basophils Percent Auto 0.2 0-2 NRBC Pct Auto 0.0 0.0-0.2 Neutrophils Absolute Auto 5.7 2. 0-8.3 Imm Gran Abs Auto 0.03 0.00-0.03 Lymphocytes Absolute Auto 2.1 1. 2-4.9 Monocytes Absolute Auto 0.4 0.1- 1.2 Eosinophils Absolute Auto 0.0 0. 0-0.4 Basophils Absolute Auto 0.0 0.0- 0.2 NRBC Abs Auto 0.000 0.0-0.012 Liver Panel 2022-07-06 Bilirubin Total 0.4 0.0-1.0 Bilirubin Direct < 0.2 0.0-0.5 Aspartate Amino Transferase 19 5-31 Alanine Aminotransferase 17 0-3 1 Total Protein 7.5 6.5-8.0 Albumin Level 4.8 3.5-5.0 Alkaline Phosphatase 81 39-117 Amylase 2022-07-06 Amylase 77 28-100 Lipase 2022-07-06 Lipase 22 8-78 GI BIOPSY 2011-05-31 G.I. BIOPSY REASON FOR VISIT gerd, epigastric pain, Patient presents today for gerd, patient presents today for Acute Gastritis,Patient presents today for Acute Gastritis, no show, patient presents today for ACUTE GASTRITIS, noshow, patient presents today for Acute gastritis, blood in stool, send over colyte prep, Has colitis, Prilosec not working, refill, refill of Nexium, f/u, NO SHOW, 3 mo. follow up, pain, appointment,appointment Insurance Providers Health Insurance Type Health Plan Insurance Address Health Plan Insurance Phone Health Plan Insurance Name Health Plan Coverage Dates Member ID Patient Relationship to Subscriber Patient Address Patient Phone Patient Name Patient Date of Subscriber ID Subscriber Name Subscriber Date of Group No MEDICAID OF [employer] [address] [facility] [address] MEDICAID OF [employer] self GERARD MIRELA [id number] [facility] [address] [address] [facility] [id number] [facility] self GERARD MIRELA [id number]
== END 2023-01-23 21:17 | disposition left against medical advice (07) ==
PROVIDERS: Emergency Provider Emergency Medicine; PCP Internal Medicine
DX: S39.92XA Unspecified injury of lower back, initial encounter (principal); W19.XXXA Unspecified fall, initial encounter; Y93.9 Activity, unspecified; Y92.009 Unspecified place in unspecified non-institutional (private) residence as the place of occurrence of the external cause; Y99.9 Unspecified external cause status

== ENCOUNTER 2023-01-24 10:17 | Outpatient (REF) | payer MEDICAID, SELFPAY ==
--- NOTE | ~2023-01-24 | XR_ITS ---
EXAMINATION: XR pelvis 1-2V, XR lumbar spine 4V min, XR sacrum coccyx min 2V CLINICAL INFORMATION: Reason for Exam INJURY COMPARISON: None TECHNIQUE: 6 views of the lumbar spine. 3 views of the sacrum and coccyx. One view of the pelvis. FINDINGS: 5 nonrib-bearing lumbar-type vertebral bodies. Vertebral body heights are maintained. Dextroconvex curvature of the lumbar spine. No pars defects identified however the right pars are partially obscured by overlying generator device. Moderate degenerative disc disease at L5-S1 with loss of disc space height and lower lumbosacral facet arthropathy. Mild degenerative disc disease at the thoracolumbar junction with degenerative spurring. Generator device with leads terminating overlying the region of T9. Right upper quadrant cholecystectomy clips. Sacroiliac joint spaces are maintained. Sacral arcuate lines are intact without evidence of sacrococcygeal fracture or dislocation. Calcified phleboliths in the pelvis. Nonspecific soft tissue calcification posterior to the sacrum, possibly a granuloma. Hip joint spaces are maintained. No pelvic fracture or hip fracture or dislocation identified.. XR/XR sacrum coccyx min 2V IMPRESSION: 1. No acute osseous abnormality. 2. Dextroconvex curvature of the lumbar spine. No pars defects identified however the right pars are partially obscured by overlying generator device. 3. Moderate degenerative disc disease at L5-S1 with loss of disc space height and lower lumbosacral facet arthropathy. Mild degenerative disc disease at the thoracolumbar junction with degenerative spurring. 4. Sacral arcuate lines are intact without evidence of sacrococcygeal fracture or dislocation.
--- NOTE | ~2023-01-24 | XR_ITS ---
EXAMINATION: XR pelvis 1-2V, XR lumbar spine 4V min, XR sacrum coccyx min 2V CLINICAL INFORMATION: Reason for Exam INJURY COMPARISON: None TECHNIQUE: 6 views of the lumbar spine. 3 views of the sacrum and coccyx. One view of the pelvis. FINDINGS: 5 nonrib-bearing lumbar-type vertebral bodies. Vertebral body heights are maintained. Dextroconvex curvature of the lumbar spine. No pars defects identified however the right pars are partially obscured by overlying generator device. Moderate degenerative disc disease at L5-S1 with loss of disc space height and lower lumbosacral facet arthropathy. Mild degenerative disc disease at the thoracolumbar junction with degenerative spurring. Generator device with leads terminating overlying the region of T9. Right upper quadrant cholecystectomy clips. Sacroiliac joint spaces are maintained. Sacral arcuate lines are intact without evidence of sacrococcygeal fracture or dislocation. Calcified phleboliths in the pelvis. Nonspecific soft tissue calcification posterior to the sacrum, possibly a granuloma. Hip joint spaces are maintained. No pelvic fracture or hip fracture or dislocation identified.. XR/XR pelvis 1-2V IMPRESSION: 1. No acute osseous abnormality. 2. Dextroconvex curvature of the lumbar spine. No pars defects identified however the right pars are partially obscured by overlying generator device. 3. Moderate degenerative disc disease at L5-S1 with loss of disc space height and lower lumbosacral facet arthropathy. Mild degenerative disc disease at the thoracolumbar junction with degenerative spurring. 4. Sacral arcuate lines are intact without evidence of sacrococcygeal fracture or dislocation.
--- NOTE | ~2023-01-24 | XR_ITS ---
EXAMINATION: XR pelvis 1-2V, XR lumbar spine 4V min, XR sacrum coccyx min 2V CLINICAL INFORMATION: Reason for Exam INJURY COMPARISON: None TECHNIQUE: 6 views of the lumbar spine. 3 views of the sacrum and coccyx. One view of the pelvis. FINDINGS: 5 nonrib-bearing lumbar-type vertebral bodies. Vertebral body heights are maintained. Dextroconvex curvature of the lumbar spine. No pars defects identified however the right pars are partially obscured by overlying generator device. Moderate degenerative disc disease at L5-S1 with loss of disc space height and lower lumbosacral facet arthropathy. Mild degenerative disc disease at the thoracolumbar junction with degenerative spurring. Generator device with leads terminating overlying the region of T9. Right upper quadrant cholecystectomy clips. Sacroiliac joint spaces are maintained. Sacral arcuate lines are intact without evidence of sacrococcygeal fracture or dislocation. Calcified phleboliths in the pelvis. Nonspecific soft tissue calcification posterior to the sacrum, possibly a granuloma. Hip joint spaces are maintained. No pelvic fracture or hip fracture or dislocation identified.. XR/XR lumbar spine 4V min IMPRESSION: 1. No acute osseous abnormality. 2. Dextroconvex curvature of the lumbar spine. No pars defects identified however the right pars are partially obscured by overlying generator device. 3. Moderate degenerative disc disease at L5-S1 with loss of disc space height and lower lumbosacral facet arthropathy. Mild degenerative disc disease at the thoracolumbar junction with degenerative spurring. 4. Sacral arcuate lines are intact without evidence of sacrococcygeal fracture or dislocation.
== END 2023-01-24 10:18 | disposition home or self-care (01) ==
LOC: HO.HHCX 10:17
PROVIDERS: Visit Provider Internal Medicine
DX: M53.3 Sacrococcygeal disorders, not elsewhere classified (principal)
CPT/HCPCS: 72110; 72170; 72220

== ENCOUNTER 2023-02-01 12:41 | Outpatient (AMB) | payer MEDICAID, SELFPAY ==
--- OUTSIDE RECORDS SUMMARY | 2023-02-01 12:43 | XMS_ITS ---
Author Name Chico Torres Address [address] [place] [address] Organization [facility] Address [address] [place] [address] Care Team Providers Care Family Services Manager Name Role Phone Chico Torres Unavailable [phone] PROBLEMS Type Condition ICD9-CM Code NEA52-QT Code Onset Dates Condition Status SNOMED Code Problem Gastritis K29.70 Active 4734329 Problem Gastroesophageal reflux disease K21.9 Active Problem Abdominal pain, epigastric R10.13 Active 05342456 Problem Gastroesophageal reflux disease, esophagitis presence not specified K21.9 Active 267494465 Problem Gastroesophageal reflux disease, unspecified whether esophagitis present K21.9 Active Problem Epigastric abdominal pain R10.13 Active ALLERGIES Substance Reaction Event Type Date Status Codeine Sulfate Unknown Drug Allergy Jun, Activ e Penicillin Unknown Drug Allergy Jun, Active ENCOUNTERS Encounter Location Date Diagnosis [facility] Outpatient [address] [place] [id number] Aug, Hiatal hernia K44.9 ; Gastroesophageal reflux disease K21.9 ; Gastritis K29.70 and Abdominal pain R10.9 [facility] [address] [place] [address] Jun, Epigastric abdominal pain R10.13 and Gastroesophageal reflux disease, unspecified whether esophagitis present K21.9 [facility] [address] [place] [address] Mar, Gastroesophageal reflux disease, esophagitis presence not specified K21.9 and Abdominal pain, epigastric R10.13 [facility] [address] [place] [address] Dec, [facility] [address] [place] [address] Sep, [facility] Outpatient [address] [place], [place] [id number] Sep, [facility] [address] [place] [address] Jul, [facility] [address] [place] [address] Jul, Blood in stool 578.1 ; Irritable bowel syndrome 564.1 and Esophageal reflux 530.81 [facility] [address] [place] Apr, [facility] [address] [facility] [place] [address] Jan, [facility] [address] [facility] [place] [address] Nov, [facility] [address] [facility] [place] [address] Nov, [facility] [address] [place] [address] [place] October, Irritable bowel syndrome 564.1 and Esophageal reflux 530.81 [facility] [address] [facility] [place] [address] Aug, [facility] [address] [place] [address] May, [facility] Outpatient [address] [place], [place] [phone] May, [facility] [address] [place] [address] [place] [address] Apr, Abdominal pain, epigastric 789.06 [facility] [address] [facility] [place] [address] Apr, [facility] [address] [place] [address] [place] [address] Apr, [facility] ER [address] [place], [place] [phone] Jan, [facility] [address] [place] [id number] Sep, [facility] Outpatient [address] [place] [id number] Aug, [facility] ER [address] [place], [place] [phone] Jun, [facility] ER [address] [place], [place] [phone] Nov, [facility] ER [address] [place], [place] [phone] Mar, IMMUNIZATIONS Vaccine Route Administration Date Status [...] Twice a day 1 puff 12h Active Odngojcobu-ZNEF-W affeine 50-325-40 MG TAKE 1 TABLET BY MOUTH EVERY 6 HOURS NEEDED 30 Active Zolpidem Tartrate 10 MG (Schedule IV Drug) TAKE 1 TABLET AT BEDTIME NEEDED FOR INSOMNIA 30 Active Ventolin HFA 108 (90 Base) MCG/ACT TOME DOS INHALACIONES POR V A ORAL CADA CUATRO A SEIS HORAS CUANDO SEA NECESARIO 17 Active Vitamin D (Ergocalciferol) 14701 UNIT TAKE ONE CAPSULE BY MOUTH ONE [...] Date Ordered Result Body Site TOBACCO NON-USER Jul 06, 2022 DOC MEDS VERIFIED W/PT OR RE Mar 19, 2019 DOC MEDS VERIFIED W/PT OR RE Jul 06, 2022 COLORECTAL CA SCREEN DOC REV Jul 06, 2022 COLORECTAL CA SCREEN DOC REV Mar 19, 2019 UPPER GI ENDOSCOPY, BIOPSY August 17, 2022 BP SCR NOT PRFRM REC REASON NOS Jul 06, 2022 BP SCR PRFRM RCMDD DEFIND SCR INTVL Mar 19, 2019 TOBACCO NON-USER Mar 19, 2019 RESULTS Name Result Date Reference Range Complete [...] Subscriber Date of Group No MEDICAID OF [employer] [address] [facility] [address] MEDICAID OF [employer] self GERARD MIRELA [id number] [facility] [address] [address] [facility] [id number] [facility] self GERARD MIRELA [id number]
--- NOTE | 2023-02-01 12:50 | MHC.OFFVIS ---
Intake Vital Signs 02/01/23 12:53 Height 5 ft 6 in Weight 153 lb BMI 24.7 BP 102/60 Intake Visit Reasons: +HPV/PCP Referral Order Department Supervisor Required: No Information Interpreted: non-clinical & clinical Accompanied by: Self / Same As Patient Allergies codeine [Codeine] Allergy (Mild, Verified 02/01/23 12:54) RASH Penicillins Allergy (Mild, Verified 02/01/23 12:54) RASH penicillin V Allergy (Unknown, Verified 02/01/23 12:54) hives tape adhesive Allergy (Mild, Uncoded 02/01/23 12:54) rash Post menopausal: Yes HPI HPI Comments History of Present Illness Details Referred from [facility] for negative Pap/HPV E6/E7 positive done recently in 12/06, the patient had Pap smear in 2019 negative/each 67 HPV positive too [facility] Medical History Acid reflux Anxiety Arthritis Asthma Bipolar 1 disorder Cervical high risk human papillomavirus (HPV) DNA test positive Depression Fibromyalgia IBS (irritable bowel syndrome) Memory loss Migraine Osteoarthritis Peripheral neuropathy Surgical History H/O dilation and curettage H/O left inguinal hernia repair History of bilateral tubal ligation History of cholecystectomy History of eyelid surgery Social History Household Members Other:: daughter Housing: Apartment Alcohol intake: never Patient Tobacco Use Status: Never used Tobacco Current occupational status: disabled Sexual orientation: Straight/Heterosexual Gender identity: Female Review of Systems Const All systems reviewed & are unremarkable except as noted in HPI and below Reports as per HPI and Reports no additional complaints GI Reports no additional complaints Reports no additional complaints Physical Exam Vital Signs: BMI result Body Mass Index 24.7 General: Yes no CVA tenderness External Female Exam: normal external appearance and normal appearance of the urethra Speculum Exam - Vagina: normal appearance of the vagina, normal palpation, no lesions and no masses Speculum Exam - Cervix: normal appearance of the cervix, normal palpation, no lesions, no masses and nontender Bimanual exam- vagina & uterus: normal bimanual exam, normal palpation, uterine size normal, normal palpation, uterine shape normal, No Cervical tenderness present and non-tender Bimanual Exam- Adnexa, other: normal adnexae Back/Spine/Pelvis Back: no CVA tenderness Office Procedures Colposcopy Before the procedure was started discussed with the patient the procedure, alternatives & all the risks associated with the procedure (bleeding, infection, injury to vagina, bladder, vessels, possible need for transfusion with all its risks) then patient signed the consent Pap smear = negative Pap/HPV positive Speculum inserted, acetic acid used Colposcopy done Transformation zone seen, acetowhite lesions identified at 6+8+11+1+3 o?clock, cervical biopsies taken from 6+8+11+1+3 o?clock, ECC done afterwards. Vaginoscopy of the upper vagina showed no evidence of any aceto-white lesions Monsel solution used for hemostasis. The patient tolerated well . At the end the patient was instructed to call if temp>100.4, abdominal pain, n/v, bleeding; The patient was given the following instructions: nothing per vagina, no intercourse or bath tub use. All questions answered the patient verbalized understanding. Instructed the patient to make an appointment in 2 weeks for follow-up This note was generated with a voice recognition program. Some errors may have been overlooked during the review of this note. Sometimes these errors may affect the content or meaning of a given sentence. [id number] of cervix including upper vagina with biopsy and ECC Procedure code (CPT) selection complete Assessment & Plan Assessment & Plan (1) Cervical high risk human papillomavirus (HPV) DNA test positive: Comment: 12/05 Pap negative/HPV E6/E7 positive 12/09 Pap negative/HPV E6/E 7 positive Code(s): R87.810 - Cervical high risk human papillomavirus (HPV) DNA test positive Plan: Discussed with the patient the result of Pap/HPV, its significance, risk of progression, persistence, and regression if untreated. the false positive/negative rate being a screening test, the need for diagnostic test -colposcopy, biopsy, endocervical curettage. Colposcopy done, see procedure note. The patient verbalized understanding and agreed with the plan, all questions answered. Orders: Orders AMB Colposcopy Today R87.810 - Cervical high risk human papillomavirus (HPV) DNA test positive Coding Level of Care Code New Pt Level 3 (24658) Procedure Only Diagnoses Cervical high risk human papillomavirus (HPV) DNA test positive R87.810 CPT Codes Colposcopy - CPT: 51761-[id number] of cervix including upper vagina with biopsy and ECC ([id number])
[2023-02-01 12:53] VITALS: BP 102/60; BMI 24.7
== END 2023-02-01 15:01 | disposition home or self-care (01) ==
LOC: HO.HWS 12:41
PROVIDERS: PCP Internal Medicine; Visit Provider Obstetrics & Gynecology
DX: R87.810 Cervical high risk human papillomavirus (HPV) DNA test positive (principal)
CPT/HCPCS: 57454; 99203

== ENCOUNTER 2023-02-01 12:41 | Outpatient (REF) | payer MEDICAID, SELFPAY | END 2023-02-01 12:42 | disposition home or self-care (01) | LOC: HO.LNP 12:41 | PROVIDERS: PCP Internal Medicine; Visit Provider Obstetrics & Gynecology | DX: R87.810 Cervical high risk human papillomavirus (HPV) DNA test positive (principal) | CPT/HCPCS: 57454; 88305; 88342; 88360; 99202 ==

== ENCOUNTER 2023-02-21 10:32 | Outpatient (AMB) | payer MEDICAID, SELFPAY ==
--- NOTE | 2023-02-21 10:51 | A.OFFVIS_ITS ---
Intake Vital Signs 02/21/23 10:56 Height 5 ft 6 in Weight 152 lb 1.903 oz BMI 24.5 BP 118/70 Intake Visit Reasons: ? 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 Unit Name: Christine ALMAZAN Information Interpreted: non-clinical & clinical Drier Unloader: Drier Unloader Present (Christine ALMAZAN) Accompanied by: Self / Same As Patient Allergies codeine [Codeine] Allergy (Mild, Verified 02/21/23 10:57) RASH Penicillins Allergy (Mild, Verified 02/21/23 10:57) RASH penicillin V Allergy (Unknown, Verified 02/21/23 10:57) hives tape adhesive Allergy (Mild, Uncoded 02/21/23 10:57) rash Is last menstrual period known: Yes Last menstrual period: 04/16/20 Post menopausal: Yes Patient : No Do you need a note to return to daycare/school/sports/work: Yes (for surgery on monday) HPI HPI Comments History of Present Illness Details Presenting post colpo for follow-up. The patient is doing well with no complaints. The pathology showed the following: A. Endocervix, curettage: Scant superficial strips of endocervical epithelium within normal limits. B. Cervix, 1 o'clock, biopsy: Few superficial strips of endocervical and squamous epithelium within normal limits. C. Cervix, 3 o'clock, biopsy: Few superficial strips of squamous epithelium within normal limits. D. Cervix, 6 o'clock, biopsy: - Atypical squamous atrophy; indeterminate for a squamous intraepithelial lesion. - Mildly inflamed endocervical tissue with reactive changes. E. Cervix, 8 o'clock, biopsy: - High-grade squamous intraepithelial lesion (NINO 3), involving glands. - Endocervical epithelium within normal limits. F. Cervix, 11 o'clock, biopsy: Scant strips of endocervical epithelium within normal limits. [facility] Medical History Acid reflux Anxiety Arthritis Asthma Bipolar 1 disorder Cervical high risk human papillomavirus (HPV) DNA test positive Depression Fibromyalgia IBS (irritable bowel syndrome) Memory loss Migraine Osteoarthritis Peripheral neuropathy Surgical History H/O dilation and curettage H/O left inguinal hernia repair History of bilateral tubal ligation History of cholecystectomy History of eyelid surgery Social History Household Members Other:: daughter Housing: Apartment Alcohol intake: never Patient Tobacco Use Status: Never used Tobacco Current occupational status: disabled Sexual orientation: Straight/Heterosexual Gender identity: Female Female Reproductive History Menstrual Date of last menstrual period: 04/16/20 Total pregnancies: 2 Full term: 2 Review of Systems Card Reports as per HPI and Reports no additional complaints Resp Reports as per HPI and Reports no additional complaints GI Reports as per HPI and Reports no additional complaints Reports as per HPI Physical Exam Vital Signs: Last Vital Signs BP 118/70 02/21/23 10:56 BMI result Body Mass Index 24.5 Const General: cooperative, healthy appearing and comfortable Chest Chest palpation & inspection: normal inspection of the chest and normal palp ation of entire chest wall Breast/axilla inspection: normal inspection of the breasts and normal inspection of the axillae Breast/axilla palpation: normal palpation of the breasts, normal palpation of the axillae and no axillary lymphadenopathy Resp Effort & Inspection: normal respiratory effort Auscultation: clear to auscultation bilaterally Percussion: percussion normal Cardio Palpation: normal PMI Rate: regular rate Rhythm: regular rhythm Heart sounds: no murmurs and no rubs Peripheral pulses: Peripheral pulses 2+ throughout GI Inspection: Yes normal to inspection Palpation (GI): Soft to palpation, nontender, no guarding, not rigid and No hepatosplenomegaly present Percussion: Yes normal to percussion Auscultation: normal bowel sounds Rectal Exam - Female: deferred Assessment & Plan Assessment & Plan (1) 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 Discussed with the patient the sensitivity specificity, positive and negative predictive value in detecting cervical cancer in addition discussed the regression, persistence and progression rates. Addition discussed with the patient the risk of progression to cancer and impact of excision procedure on her future . Recommended excisional procedures, LEEP cone with post cone ECC. Discussed with the patient the procedure, its benefits and risks including bleeding, infection, possible need for blood transfusion with all its risk ( HIV, syphilis, Hepatitis, anaphylaxis shock, others..), injury to bladder, rectum, possible need for re-excision or hysterectomy for positive margins, potential need for hysterectomy . Also discussed the patient options of anesthesia either paracervical block versus IV sedation/MAC, prefers to proceed with IV sedation/MAC . All questions answered, the patient verbalized understanding and signed the consent. Instructions given to patient to schedule a postop appointment. 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
[2023-02-21 10:56] VITALS: BP 118/70; BMI 24.5
== END 2023-02-21 16:10 | disposition home or self-care (01) ==
PROVIDERS: PCP Internal Medicine; Visit Provider Obstetrics & Gynecology
DX: D06.9 Carcinoma in situ of cervix, unspecified (principal)
CPT/HCPCS: 99213

== ENCOUNTER → 2023-02-21 10:32 | Outpatient (BNVA) | payer MEDICAID, SELFPAY | PROVIDERS: PCP Internal Medicine; Visit Provider Obstetrics & Gynecology | DX: D06.9 Carcinoma in situ of cervix, unspecified (principal) | CPT/HCPCS: 99212 ==

== ENCOUNTER 2023-02-24 11:41 | Day surgery (SDC) | payer MEDICAID, SELFPAY ==
--- NOTE | 2023-02-23 08:57 | HO.ANESPROP2 ---
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 (Acute) Cervical high risk human papillomavirus (HPV) DNA test positive (Acute) Varicose veins of right lower extremity with inflammation (Acute) Past Medical History Medical History Acid reflux Anxiety Arthritis Asthma Bipolar 1 disorder Cervical high risk human papillomavirus (HPV) DNA test positive Depression Fibromyalgia IBS (irritable bowel syndrome) Memory loss Migraine Osteoarthritis Peripheral neuropathy Family History Family history of problems with anesthesia: No Surgical History Surgical History H/O dilation and curettage H/O left inguinal hernia repair History of bilateral tubal ligation History of cholecystectomy History of eyelid surgery History of Problems with Anesthesia: No Social History Social History Household Members Other:: daughter Housing: Apartment Alcohol intake: never Patient Tobacco Use Status: Former Tobacco user Quit Date: > 10 yrs ago Use of substances other than those prescribed or required for medical reasons: Yes Substance Use Frequency: Daily Are you DNR?: No Advance Directives: No Advance Directives Information Provided: Yes Current occupational status: disabled Sexual orientation: Straight/Heterosexual Gender identity: Female Meds Allergies Allergy/AdvReac Type Severity Reaction Status Date / Time codeine [Codeine] Allergy Mild RASH Verified 02/24/23 11:48 Penicillins Allergy Mild RASH Verified 02/24/23 11:48 penicillin V Allergy Unknown hives Verified 02/24/23 11:48 tape adhesive Allergy Mild rash Uncoded 02/21/23 10:57 Home Medications Medication Instructions Recorded Confirmed Last Taken Type famotidine 20 mg tablet 20 mg PO BID 05/03/22 Unknown History omeprazole 40 mg capsule,delayed 40 mg PO DAILY 05/03/22 02/24/23 09:00 History release sumatriptan succinate 100 mg tablet 0 mg PO 05/03/22 Unknown History tramadol 50 mg tablet 50 mg PO Q6H PRN Pain 05/03/22 Unknown History amitriptyline 100 mg tablet 1 tab BEDTIME 08/16/22 08/16/22 Unknown History cyclobenzaprine 10 mg tablet 1 tab PO TID PRN pain 08/16/22 08/16/22 Unknown History fluticasone propionate 50 2 spray intranasal DAILY PRN 08/16/22 08/16/22 Unknown History mcg/actuation nasal Allergy Symptoms spray,suspension hydroxyzine HCl 50 mg tablet 1 tab PO BID PRN Anxiety 08/16/22 08/16/22 Unknown History mirtazapine 15 mg tablet 1 tab BEDTIME 08/16/22 08/16/22 Unknown History zolpidem 10 mg tablet 1 tab PO BEDTIME PRN insomnia 08/16/22 08/16/22 Unknown History Exam Exam Date and Time: February 23, 2023 08 Assessment and Plan Assessment Anesthesia Assessment: Chart Reviewed Final Anesthetic Review Family History of Problems with Anesthesia: No History of Problems with Anesthesia: No Documented by User: Lesly Daniel MD 02/24/23 12:36 [facility] Past Medical History Medical History Acid reflux Anxiety Arthritis Asthma Bipolar 1 disorder Cervical high risk human papillomavirus (HPV) DNA test positive Depression Fibromyalgia IBS (irritable bowel syndrome) Memory loss Migraine Osteoarthritis Peripheral neuropathy Surgical History Surgical History H/O dilation and curettage H/O left inguinal hernia repair History of bilateral tubal ligation History of cholecystectomy History of eyelid surgery Social History Social History Household Members Other:: daughter Housing: Apartment Alcohol intake: never Patient Tobacco Use Status: Former Tobacco user Quit Date: > 10 yrs ago Use of substances other than those prescribed or required for medical reasons: Yes Substance Use Frequency: Daily Are you DNR?: No Advance Directives: No Advance Directives Information Provided: Yes Current occupational status: disabled Sexual orientation: Straight/Heterosexual Gender identity: Female Meds Allergies Allergy/AdvReac Type Severity Reaction Status Date / Time codeine [Codeine] Allergy Mild RASH Verified 02/24/23 11:48 Penicillins Allergy Mild RASH Verified 02/24/23 11:48 penicillin V Allergy Unknown hives Verified 02/24/23 11:48 tape adhesive Allergy Mild rash Uncoded 02/21/23 10:57 Home Medications Medication Instructions Recorded Confirmed Last Taken Type famotidine 20 mg tablet 20 mg PO BID 05/03/22 Unknown History omeprazole 40 mg capsule,delayed 40 mg PO DAILY 05/03/22 02/24/23 09:00 History release sumatriptan succinate 100 mg tablet 0 mg PO 05/03/22 Unknown History tramadol 50 mg tablet 50 mg PO Q6H PRN Pain 05/03/22 Unknown History amitriptyline 100 mg tablet 1 tab BEDTIME 08/16/22 08/16/22 Unknown History cyclobenzaprine 10 mg tablet 1 tab PO TID PRN pain 08/16/22 08/16/22 Unknown History fluticasone propionate 50 2 spray intranasal DAILY PRN 08/16/22 08/16/22 Unknown History mcg/actuation nasal Allergy Symptoms spray,suspension hydroxyzine HCl 50 mg tablet 1 tab PO BID PRN Anxiety 08/16/22 08/16/22 Unknown History mirtazapine 15 mg tablet 1 tab BEDTIME 08/16/22 08/16/22 Unknown History zolpidem 10 mg tablet 1 tab PO BEDTIME PRN insomnia 08/16/22 08/16/22 Unknown History Exam Airway Mallampati Class: II TM Dist: >3cm Neck ROM: Full Heart: rrr Lungs: cta Assessment and Plan Assessment Anesthesia Assessment: Anesthesia Plan Discussed Final Anesthetic Review NPO: Yes ASA Class: II Final Preanesthetic Review: No Changes in Pt Med Stat, Meds/Allgs Chart Reviewed and Consent Obtained/Reviewed Patient Risk: Intermediate Procedure Risk: Intermediate Anesthetic Plan Anesthetic Plan: GA Disposition: Standard PACU
[2023-02-24] VITALS (7 sets, daily range): BP systolic 104–119; BP diastolic 63–75; PULSE 70–99; RESP 14–16; TEMP 36.5–37; O2SAT 96–100; BMI 24.5
--- OUTSIDE RECORDS SUMMARY | 2023-02-24 11:43 | XMS_ITS | Patient Health Record ---
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 Name Role Phone Lety Watson Primary Care Provider Chico Lopez Unavailable [phone] ALLERGIES Allergen (clinical drug ingredient) Drug/Non Drug Allergy documented on EMR Reaction Allergy Type Onset Date Status Penicillin Unknown Drug Allergy Active codeine Codeine Sulfate Unknown Drug Allergy A ctive RESULTS Component Value Reference Range Notes Amylase Reviewed date:07/06/2022 11:08:35 PM Interpretation: Performing Lab:[facility], [address] [place] [phone] Notes/Report: Amylase 77 28-100 U/L Lipase Reviewed date:07/06/2022 11:08:27 PM Interpretation: Performing Lab:[facility], [address] [place] [phone] Notes/Report: Lipase 22 8-78 U/L Complete Blood Count Auto Di ff Reviewed date:07/06/2022 11:08:09 PM Interpretation: Performing Lab:[facility], [address] [place] [phone] Notes/Report: White Blood Count 8.3 4.8-10.8 X10*3/uL Red Blood Count 5.16 4.20-5.50 X10*6/uL Hemoglobin 14.2 12.0-16.0 g/dl Hematocrit 43.4 37.0-47.0 % Mean Corpuscular Volume 84.1 80.0-98.0 fL Mean Corpuscular Hemoglobin 27.5 27.0-33.0 pg Mean Corpuscular HGB Conc 32.7 31.0-35.0 g/dl Red Cell Distribution Width 12.9 11.0-16.0 % Platelet Count 220 160-400 X10*3/uL Mean Platelet Volume 10.7 9.4-12.3 fL Neutrophils Percent Auto 69.2 45-73 % Imm Gran Pct Auto 0.4 0.0-0.4 % Lymphocytes Percent Auto 24.8 20-40 % Monocytes Percent Auto 5.3 2-11 % Eosinophils Percent Auto 0.1 0-4 % Basophils Percent Auto 0.2 0-2 % NRBC Pct Auto 0.0 0.0-0.2 /100WBC Neutrophils Absolute Auto 5.7 2.0-8.3 x10*3/u L Imm Gran Abs Auto 0.03 0.00-0.03 X10*3/uL Lymphocytes Absolute Auto 2.1 1.2-4.9 X10*3/u L Monocytes Absolute Auto 0.4 0.1-1.2 X10*3/uL Eosinophils Absolute Auto 0.0 0.0-0.4 X10*3/u L Basophils Absolute Auto 0.0 0.0-0.2 X10*3/uL NRBC Abs Auto 0.000 0.0-0.012 X10*3/uL Liver Panel Reviewed date:07/06/2022 11:08:19 PM Interpretation: Performing Lab:[facility], [address] [place] [phone] Notes/Report: Bilirubin Total 0.4 0.0-1.0 mg/dL Bilirubin Direct < 0.2 0.0-0.5 mg/dL Aspartate Amino Transferase 19 5-31 U/L Alanine Aminotransferase 17 0-31 U/L Total Protein 7.5 6.5-8.0 g/dL Albumin Level 4.8 3.5-5.0 g/dL Alkaline Phosphatase 81 39-117 U/L Pathology (Not yet reviewed by provider) Interpretation: Performing Lab:[facility], [address] [place] [phone] Notes/Report: REASON FOR REFERRAL Referring Provider First Name Lety Referring Provider Last Name Thienrobbin Referred Organization [facility] Referred Provider Chico Torres Referred Address [address] [place] [address],[facility] [address],[place], [place],[address],[place] Referred Provider Specialty Gastroentero logy Referral Priority Routine MEDICATIONS Medication SIG (Take, Route, Frequency, Duration) Notes Start Date End Date Status Lidocaine 5 % APPLY 1 PATCH EVERY DAY MAY WEAR UP TO 12 HOURS External for 30 Active Meloxicam 15 MG TAKE 1 TABLET BY CHRISTIANO TH EVERY DAY Oral for 30 Active Topiramate 25 MG TAKE 1 TABLET BY CHRISTIANO TH TWICE A DAY Oral for 30 Active Amitriptyline HCl 100 MG TAKE 1 TABLET B Y MOUTH EVERYDAY AT BEDTIME Oral for 30 Active Zolpidem Tartrate 10 MG (Schedule IV Twin g) TAKE 1 TABLET AT BEDTIME NEEDED FOR INSOMNIA Oral for 30 Active hydrOXYzine HCl 50 MG TAKE 1 TO 2 TABLET S BY MOUTH AT BEDTIME NEEDED FOR INSOMNIA Oral for 30 Active Acetaminophen Extra Strength 500 MG TAKE 1 TABLET BY ORAL ROUTE EVERY 4 - 6 HOURS NEEDED NOT TO EXCEED 8 TABLETS PER 24HRS Oral for 30 Active Fluticasone Propionate 50 MCG/ACT INHALE 2 SPRAY BY INTRANASAL ROUTE EVERY DAY IN EACH NOSTRIL NEEDED Nasal for 30 Active Gabapentin 800 MG 1 tablet Orally thre e times a day Active Fluticasone Propionate (Inhal) 50 MCG/BLIST 1 puff Inhalation Twice a day Active ProAir HFA 108 (90 Base) MCG/ACT 2 puffs as needed Inhalation every 6 hrs Active traMADol HCl 50 MG TOME JJ TABLETA CAD A SEIS HORAS CUANDO SEA NECESARIO Oral for 28 Active Ventolin HFA 108 (90 Base) MCG/ACT TOME DOS INHALACIONES POR V A ORAL CADA CUATRO A SEIS HORAS CUANDO SEA NECESARIO Inhalation for 17 Active SUMAtriptan Succinate 100 MG TAKE 1 TABLET AT ONSET AND EVERY 4 HOURS NEEDED ORALLY UP TO TWICE A DAY 30 DAYS Oral for 30 Active Famotidine 20 MG TOME JJ TABLETA DOS VECES AL D A Oral for 90 Active Omeprazole 40 MG 1 capsule Orally Onc e a day Active MetroGel-Vaginal 0.75 % 1 applicatorful at bedtime Vaginal Once a day for 5 day(s) Active Maalox Max 400-400-40 MG/5ML 10 ml as needed Orally Four times a day Active Flovent HFA 110 MCG/ACT 1 puff Inhalatio n Twice a day Active Loratadine 10 MG 1 tablet Orally Once a day for 30 day(s) Active Mirtazapine 45 MG 1 tablet at bedtime Orally Once a day for 30 day(s) Active Pain Relief Extra Strength 500 MG TAKE 1 TABLET BY MOUTH EVERY 4 - 6 HOURS NEEDED NOT TO EXCEED 8 TABLETS PER 24HRS Oral for 15 Active Mcdhespqyn-GXTX-Ygwuxnsr 50-325-40 MG TAKE 1 TABLET BY MOUTH EVERY 6 HOURS NEEDED Oral for 30 Active Vitamin D (Ergocalciferol) 77723 UNIT TAKE ONE CAPSULE BY MOUTH ONE TIME PER WEEK Oral for 28 Active Cyclobenzaprine HCl 10 MG TAKE 1 TABLET BY MOUTH THREE TIMES A DAY NEEDED Oral for 30 Active IMMUNIZATIONS Vaccine Route Administration Date Status Comme nts Influenza Unknown 03/19/2022 Administered SOCIAL HISTORY Sex Assigned At : Social History Observation Description Sex Assigned At Unknown Alcohol Screen Question Answer Notes Did you have a drink contain ing alcohol in the past year? Yes How often did you have a dri nk containing alcohol in the past year? Never (0 point) How many drinks did you have on a typical day when you were drinking in the past year? 1 or 2 drinks (0 point) How often did you have 6 or more drinks on one occasion in the past year? Never (0 point) Points 0 Interpretation Negative PROBLEMS Problem Type ICD Code Onset Dates Problem Status W/U Status Risk SNOMED Code Notes Problem Epigastric abdominal pain (R10.13) Active confirmed 34322995 Problem Gastroesophageal reflux disease (K21.9) Active confirmed Gastroesophagea l reflux disease (480945857) Problem Abdominal pain, epigastric (R10.13) Active confirmed 78538663 Problem Gastroesophageal reflux disease, esophagitis presence not specified (K21.9) Active confirmed 663681769 Problem Gastritis (K29.70) Active confirmed Gas tritis (7423665) Problem Gastroesophageal reflux disease, unspecified whether esophagitis present (K21.9) Active confirmed [id number] Encounters Encounter Location Date Provider Diagnosis [facility] [place] [facility] [address], [place] [id number] 08/17/2022 Chico Torres Hiatal hernia K44.9 ; Gastroesophageal reflux disease K21.9 ; Gastritis K29.70 and Abdominal pain R10.9 [facility] [address] [place] [address] 07/06/2022 Chico Torres Epigastric abdominal pain R10.13 and Gastroesophageal reflux disease, unspecified whether esophagitis present K21.9 ASSESSMENTS Encounter Date Diagnosis Assessment Notes Treatment Notes Treatment Clinical Notes 08/17/2022 Gastroesophageal reflux disease (ICD-10 - K21.9) 08/17/2022 Hiatal hernia (ICD-1 0 - K44.9) 07/06/2022 Epigastric abdominal pain (ICD-10 - R10.13) You should try to stop the Meloxicam because that can bother the stomach and cause ulcers. You should also avoid Motrin, Ibuprofen, Advil, etc. Tylenol is safe for the stomach. 07/06/2022 Gastroesophageal reflux disease, unspecified whether esophagitis present (ICD-10 - K21.9) 08/17/2022 Gastritis (ICD-10 - K29.70) 08/17/2022 Abdominal pain (ICD- 10 - R10.9) 07/06/2022 Other Repeat colonoscopy in 2024 PLAN OF TREATMENT Pending Test Test Name Order Date LIVER PROFILE 07/06/2022 CBC w DIFF 07/06/2022 Pathology 08/17/2022 Future Test Test Name Order Date COLONOSCOPY 07/31/2014 UPPER GI ENDOSCOPY 07/06/2022 Insurance Providers Payer Name Payer Address Payer Phone Subscriber Number Group Number Insured Name Patient Relationship to Insured Coverage Start Date Coverage End Date [facility] [address] [place] [phone] [id number] GERARD DIETZ Self - patient is the insured MEDICAL (GENERAL) HISTORY Medical History History ICD Code IBS--good relief with Bentyl Asthma GERD--EGD 05/2011 with a small hiatal he rnia-bx neg. for H.pylori Depression Back pain--has a nerve stimulator for ch ronic pain Denies SD,DM,CVA,renal disease Fibromyalgia Arthritis Negative colonoscopy in 09/[address] of abdomen in 08/2018 and in 2020 Migraines Peripheral neuropathy Memory loss Surgical History Surgery Date(Month/Year) CCY Hernia surgery-left inguinal BTL D & C Eyelid surgery Pain stimulator implant-2011, with new b attery 2018
[2023-02-24] MEDS: Lactated Ringers 1,000 ML 100 ML IVCONT (12:14)
--- NOTE | 2023-02-24 12:20 | MHC.SHP ---
Pre-Procedural Eval Section A Date of Service: 02/24/23 The patient is an INPATIENT: No Changes since office visit: No Cold of Flu in the past 2 weeks, No New Medical Problems, No Changes in Medication and No Patient answered all questions The History & Physical has been completed within 30 days and I have reviewed it.: Yes Section B Chief Complaint: Carcinoma in situ of cervix, Allergies: Allergies Allergy/AdvReac Type Severity Reaction Status Date / Time codeine [Codeine] Allergy Mild RASH Verified 02/24/23 11:48 Penicillins Allergy Mild RASH Verified 02/24/23 11:48 penicillin V Allergy Unknown hives Verified 02/24/23 11:48 tape adhesive Allergy Mild rash Uncoded 02/21/23 10:57 Plan Diagnosis/Plan: Unchanged I have reviewed the history and physical and performed a pertinent physical examination on my patient. No changes have occurred unless specified. Time Spent With Patient Time: Total time managing care of this patient today ____ minutes.
--- NOTE | 2023-02-24 13:46 | PM.OP ---
Brief Operative Note Date of Service: 02/24/23 Pre-op diagnosis: NINO 3 Post-op diagnosis: same Procedure: LEEP CONE with top-hat excision and post CONE ECC Surgeon: Kannan Judd MD Anesthesia: GLMA and other (Paracervical block) Was an Scientist Propagator used for this Procedure?: No Estimated blood loss (mL): 0 Pathology: other (Cervical cone, top-hat, Post cone ECC) Condition: stable Disposition: other (Home)
--- NOTE | 2023-02-24 13:46 | W.PM.OPN ---
Operative Note Operative Note Date of Service: 02/24/23 Narrative: Pre op diagnosis: NINO 3 Operation: Colposcopy, Loop electrical excision procedure cone, top hat endocervical excision, post cone ECC Postop diagnosis: the same Quantitative blood loss: 50 cc Surgeon: Kannan Judd MD, FACOG Traffic Court Magistrate: None Pathology: Cervical cone, top-hat endo cervical excision, endo cervical curettage Complications: none Anesthesia: GLMA and Para cervical block Procedure: The patient was put in a dorsal lithotomy position, scrubbed and draped in the usual sterile fashion. A speculum was inserted inside the patient's vagina. The cervix is assessed using the colposcope with acetic acid , the lesions were seen, and at least 1 cm of the squamocolumnar junction was observed. 20 x 5 mm size loop was selected based upon the diameter of the lesion. Lugol solution was used to outline the lesions and area of the transformation zone order to be removed 10 cc of xylocaine with epinephrine were injected submucosally into the surface of the cervix (ectocervix) at the 3, 6, 9, and 12 o'clock positions. The electrosurgical generator is set at 40 thomason on blend 1. The loop is carefully passed simultaneously around and under the transformation zone, in order to ensure excising it making sure the lesion is at least 5 mm far from the specimen margins . The loop was allowed to glide through the cervix from one side to the other, allowing the cutting current to divide the tissue; additional tissue was excised from this endocervical area with a smaller-diameter loop , endo cervical top-hat excision; An endo cervical curettage is performed following completion of excision, and hemostasis is obtained with a Ball electrode or regular tip cautery. At the end, Monsel's solution was applied to the cone bed. The patient tolerated the procedure well and, all instruments were taken out of the patient vaginal cavity, and the patient was transferred to the PACU in stable condition.
[2023-02-24] MEDS: Acetaminophen 325 MG TABLET 650 MG PO (13:48)
[2023-02-24] MEDS: oxyCODONE HCl Immed Release 5 MG TABLET PO (13:48)
[2023-02-24] MEDS: fentaNYL citrate/PF 100 MCG/2 ML VIAL 50 MCG IVPUSH (13:49)
== END 2023-02-24 14:31 | disposition home or self-care (01) ==
PROVIDERS: PCP Internal Medicine; Visit Provider Obstetrics & Gynecology
PROC: 0UBC7ZZ Excision of Cervix, Via Natural or Artificial Opening (ICD-10-PCS; CPT 57522; principal; 2023-02-24 13:30)
DX: D06.9 Carcinoma in situ of cervix, unspecified (principal); J45.909 Unspecified asthma, uncomplicated; F41.1 Generalized anxiety disorder; F31.9 Bipolar disorder, unspecified; M79.7 Fibromyalgia; G43.909 Migraine, unspecified, not intractable, without status migrainosus; G62.9 Polyneuropathy, unspecified; I83.11 Varicose veins of right lower extremity with inflammation; Z79.51 Long term (current) use of inhaled steroids; Z79.899 Other long term (current) drug therapy; Z88.0 Allergy status to penicillin; Z88.5 Allergy status to narcotic agent; L23.1 Allergic contact dermatitis due to adhesives; Z87.891 Personal history of nicotine dependence
CPT/HCPCS: 57461; 88305; 88307; 88342; 88360; J1885; J2405; J3010

== ENCOUNTER → 2023-02-24 11:41 | Outpatient (BNV) | payer MEDICAID, SELFPAY | PROVIDERS: PCP Internal Medicine; Visit Provider Obstetrics & Gynecology | DX: D06.9 Carcinoma in situ of cervix, unspecified (principal) | CPT/HCPCS: 57461 ==

== ENCOUNTER 2023-02-28 10:12 | Emergency (ER) | payer MEDICAID, SELFPAY ==
--- NOTE | ~2023-02-28 | CT_ITS ---
EXAMINATION: CT HEAD W/O IV CONTRAST CT CERVICAL SPINE W/O IV CONTRAST CLINICAL INFORMATION: Pain after fall. COMPARISON: None TECHNIQUE: Head - Contiguous axial imaging of the head was performed from the skull base to the vertex without the administration of intravenous contrast, and axial images are reconstructed at 2 mm and 5 mm slice thickness. Cervical spine - A volumetric, helical CT acquisition of the cervical spine was obtained without contrast; in addition to the standard set of axial images, multiplanar reformatted images were provided in the coronal and sagittal imaging planes. This CT examination was performed using dose optimization techniques as appropriate, variously including the following: *Automated exposure control *Adjustment of mA and/or kV according to patient size (this includes techniques or standardized protocols for targeted exams where dose is matched to indication/reason for exam; i.e. extremities or head) *Use of iterative reconstruction technique DLP: 1032 mGy-cm (total) FINDINGS: HEAD: No acute intracranial findings. Krueger to white matter differentiation is preserved. No evidence of intracranial hemorrhage, major vascular territory infarction, focal mass effect or midline shift. The ventricles have normal size and configuration. No hydrocephalus or extra-axial fluid collections. The calvarium is intact and the visualized paranasal sinuses, mastoid air cells and middle ear cavities are clear. The temporomandibular joints are normal. The orbits and globes are unremarkable. CERVICAL SPINE: The craniocervical junction is normal. The occipital condyles, dens and atlantodental articulation are intact. The vertebral body heights and alignment are maintained. No fractures in the anterior or posterior elements. No prevertebral soft tissue edema. Anterior vertebral osteophytes noted at C3-C4, C4-C5, C5-C6 and C6-C7. Mild degenerative loss of disc height at C5-C6. The uncovertebral joint hypertrophy causes mild bilateral neural foraminal stenosis at C5-C6. There is no significant spinal canal stenosis. No hematoma in the neck. Thyroid gland is normal. The examined lung apices are clear. CT/CT cervical spine wo IV con IMPRESSION: * No intracranial hemorrhage or other acute intracranial pathology. * No fracture or malalignment in the mildly degenerated cervical spine.
[2023-02-28 11:02] VITALS: BP 101/69; PULSE 80; RESP 18; TEMP 36.8; O2SAT 99; BMI 24.5
--- NOTE | 2023-02-28 11:08 | ECG_ITS ---
Test Reason : rectal bleed Blood Pressure : / mmHG Vent. Rate : 071 BPM Atrial Rate : 071 BPM P-R Int : 166 ms QRS Dur : 078 ms QT Int : 402 ms P-R-T Axes : 068 018 051 degrees QTc Int : 436 ms Normal sinus rhythm Nonspecific T wave abnormality Abnormal ECG When compared with ECG of 14-SEP-2018 22:19, QT has shortened Referred By: Janet Brooks Electronically Signed By:YOLANDA ADDISON
--- NOTE | 2023-02-28 11:09 | ED_ITS ---
HPI - General Adult General Chief complaint: General Medical Stated complaint: Rectal bleed Time Seen by Provider: 02/28/23 13:48 Source: patient Mode of arrival: ambulatory Limitations: no limitations History of Present Illness HPI narrative: 58-year-old female with history of HPV s/p LEEP 3 days ago who presents to the ER for evaluation of a fall yesterday with head strike along with BRBPR that started the evening of 02/26. Patient reports that she has had at least 5 episodes between yesterday and today. She states the episodes of either been large volume bright red blood or stool mixed with clots. she states yesterday after having a bowel movement she left the bathroom, went to her room and felt the urge to go to the bathroom again. When she got to the bathroom she fell lightheaded and dizzy, she held onto the coronel but ended up falling down and hitting her head. She does not think she lost consciousness. She is not on anticoagulation. She denies history of GI bleed in the past. she denies any associated abdominal pain, nausea, vomiting. She does have some pelvic soreness from her recent cervical surgery. No vaginal bleeding. MD complaint: bright red blood per rectum, status post fall yesterday Onset (ago): day(s) (1) Severity: moderate Pain Consistency: intermittent Relieving factors: none Exacerbating factors: none Associated symptoms: weakness Treatments prior to arrival: none Related Data Home Medications Medication Instructions Recorded Confirmed famotidine 20 mg tablet 20 mg PO BID 05/03/22 omeprazole 40 mg capsule,delayed 40 mg PO DAILY 05/03/22 release sumatriptan succinate 100 mg tablet 0 mg PO 05/03/22 tramadol 50 mg tablet 50 mg PO Q6H PRN Pain 05/03/22 amitriptyline 100 mg tablet 1 tab BEDTIME 08/16/22 08/16/22 cyclobenzaprine 10 mg tablet 1 tab PO TID PRN pain 08/16/22 08/16/22 fluticasone propionate 50 2 spray intranasal DAILY PRN 08/16/22 08/16/22 mcg/actuation nasal Allergy Symptoms spray,suspension hydroxyzine HCl 50 mg tablet 1 tab PO BID PRN Anxiety 08/16/22 08/16/22 mirtazapine 15 mg tablet 1 tab BEDTIME 08/16/22 08/16/22 zolpidem 10 mg tablet 1 tab PO BEDTIME PRN insomnia 08/16/22 08/16/22 Allergies Allergy/AdvReac Type Severity Reaction Status Date / Time codeine [Codeine] Allergy Mild RASH Verified 02/24/23 11:48 Penicillins Allergy Mild RASH Verified 02/24/23 11:48 penicillin V Allergy Unknown hives Verified 02/24/23 11:48 tape adhesive Allergy Mild rash Uncoded 02/21/23 10:57 PMFSH Past Medical History Medical History Acid reflux Anxiety Arthritis Asthma Bipolar 1 disorder Cervical high risk human papillomavirus (HPV) DNA test positive Depression Fibromyalgia IBS (irritable bowel syndrome) Memory loss Migraine Osteoarthritis Peripheral neuropathy Surgical History H/O dilation and curettage H/O left inguinal hernia repair History of bilateral tubal ligation History of cholecystectomy History of eyelid surgery Social History Social History Household Members Other:: daughter Housing: Apartment Alcohol intake: never Patient Tobacco Use Status: Former Tobacco user Quit Date: > 10 yrs ago Advance Directives: No Current occupational status: disabled Sexual orientation: Straight/Heterosexual Gender identity: Female Physical Exam ED Vital Signs: Vital Signs - 24 hr 02/28/23 11:02 02/28/23 13:44 02/28/23 13:45 Temperature 98.2 F Pulse Rate 80 67 64 Respiratory Rate 18 16 Blood Pressure 101/69 98/58 L 98/58 L Pulse Oximetry 99 99 Oxygen Delivery Method Room Air Room Air 02/28/23 13:46 02/28/23 13:49 Temperature Pulse Rate 66 66 Respiratory Rate Blood Pressure 114/71 104/67 Pulse Oximetry Oxygen Delivery Method BMI result Body Mass Index 24.5 Course Course Course Narrative: RME: 58-year-old female with past medical history HPV presenting to ED complaining of fall yesterday in bathroom with + head strike, feels blood pressure dropped causing fall, ?LOC. also reports bright red blood per rectum with clots this morning. Denies taking anticoagulation. Reports mild headache Ambulating with steady gait EKG, labs, occult stool, head/C-spine CT noted Full HPI, ROS and PE to be performed by primary ED provider. Reevaluation(s) Reevaluation #1: Repeat hemoglobin hematocrit is stable. Patient asymptomatic. Patient hemo dynamically stable. Patient will follow-up with human resources professional Dr. Torres for outpatient follow-up. Patient explain worrisome signs and informed to return to the ED if she has them. Time: 17:38 Medical Decision Making Medical Decision Making [facility] Narrative: 58-year-old female presenting to the ER for evaluation of bright red blood per rectum and a fall that occurred yesterday. She reports 5 episodes of bright red blood, reportedly large volume. Her fall yesterday does not seem to be consistent with syncope or orthostatic hypotension. She did strike her head but did not lose consciousness. She is not on anticoagulation. On arrival to the ER patient is hemodynamically stable, orthostatic vital signs are negative. Her H&H is stable at 13 and 40. No active bleeding in the 5 hours observed in the ER. Case was discussed with patient's human resources professional Dr. Torres. He is recommending repeat H&H 5 hours after the initial to see if stable. If stable patient can reasonably be discharged home with plan for outpatient colonoscopy and GI follow-up in the office. Patient was updated on plan of care. Repeat H&H is pending. Differential Diagnosis Differential Diagnoses: The differential diagnosis associated with the presentation includes lower GI bleed, rectal bleed, diverticulosis, diverticulitis, vaginal bleed, AVM Admission/Observation Consideration of admission/observation: Escalation of care including admission/observation considered Consult Healthcare Provider Management of the patient was discussed with: Fraud Prevention Analyst Dr. Torres gastroenterology Lab Data [facility] Lab Attestation statement: I reviewed the patient's lab results. 02/28/23 16:21 02/28/23 11:22 Labs: Lab Results 02/28/23 02/28/23 Range/Units 11:22 16:21 WBC 5.9 (4.8-10.8) X10*3/uL RBC 4.94 (4.20-5.50) X10*6/uL Hgb 13.4 13.3 (12.0-16.0) g/dl Hct 40.9 40.7 (37.0-47.0) % MCV 82.8 (80.0-98.0) fL MCH 27.1 (27.0-33.0) pg MCHC 32.8 (31.0-35.0) g/dl RDW 13.6 (11.0-16.0) % Plt Count 186 (160-400) X10*3/uL MPV 10.9 (9.4-12.3) fL Immature Gran % (Auto) 0.2 (0.0-0.4) % Neut % (Auto) 73.5 H (45-73) % Lymph % (Auto) 21.8 (20-40) % [place] % (Auto) 4.0 (2-11) % Eos % (Auto) 0.3 (0-4) % Baso % (Auto) 0.2 (0-2) % Lymph # (Auto) 1.3 (1.2-4.9) X10*3/uL [place] # (Auto) 0.2 (0.1-1.2) X10*3/uL Eos # (Auto) 0.0 (0.0-0.4) X10*3/uL Baso # (Auto) 0.0 (0.0-0.2) X10*3/uL Abs Immat Gran (auto) 0.01 (0.00-0.03) X10*3/uL Absolute Neuts (auto) 4.4 (2.0-8.3) x10*3/uL Absolute Nucleated RBC 0.000 (0.0-0.012) X10*3/uL Nucleated RBC % (auto) 0.0 (0.0-0.2) /100WBC PT 12.2 (11.1-13.3) SEC INR 1.0 (0.9-1.1) Sodium 140 (135-145) mmol/L Potassium 3.8 (3.3-5.1) mmol/L Chloride 111 H (96-108) mmol/L Carbon Dioxide 24 (22-29) mmol/L Anion Gap 9 L (12-20) BUN 11 (9-16) mg/dL Creatinine 0.86 (0.5-1.4) mg/dL Estim Creat Clear Calc 67.5 Estimated GFR > 60 Random Glucose 79 (60-115) mg/dL Calcium 9.3 (8.4-10.2) mg/dL Magnesium 2.0 (1.6-2.6) mg/dL Total Bilirubin 0.6 (0.0-1.0) mg/dL Direct Bilirubin 0.2 (0.0-0.5) mg/dL AST 17 (5-31) U/L ALT 16 (0-31) U/L Alkaline Phosphatase 68 (39-117) U/L Troponin I High Sens < 2.7 (<3.5-17.0) ng/L Total Protein 6.9 (6.5-8.0) g/dL Albumin 4.3 (3.5-5.0) g/dL Lipase 23 (8-78) U/L Urine Color Yellow Urine Appearance Clear Urine pH 8.0 (5.0-9.0) Ur Specific [place] 1.010 (1.005-1.025) Urine Protein Negative (Neg-Trace) mg/dL Urine Glucose (UA) Negative (Negative) mg/dL Urine Ketones Negative (Negative) mg/dL Urine Blood Trace H (Negative) Urine Nitrite Negative (Negative) Ur Leukocyte Esterase Large (3+) H (Negative) Urine RBC 0-2 (0-2) /HPF Urine WBC 11-20 (0-5) /HPF Ur Squamous Epith Cells 0-2 (0-2) /HPF Urine Bacteria 1+ (None Seen) Hyaline Casts 0-2 (0-2) /LPF Stool Occult Blood POSITIVE (NEGATIVE) Independent Interpretation I performed an independent interpretation of an: EKG and CT Scan Interpretation: CT without actute bleed or edema EKG with normal sinus rhythm, ventricular rate 71 beats per minute, normal QTC, normal GA interval. Radiology Impression Discussion of test interpretation with radiology: I have reviewed the radiologist's reading. Radiologist Impression: CT/CT head/brain wo IV con IMPRESSION: * No intracranial hemorrhage or other acute intracranial pathology. * No fracture or malalignment in the mildly degenerated cervical spine. External Record Review External record reviewed: Office record, Outpatient record and Prior outpatient labs Critical Care Time Critical Care Time Critical Care Time: No Discharge Plan Discharge Clinical Impression: Acute lower GI bleeding Patient Disposition: Home, Self-Care Instructions: Gastrointestinal Bleeding (ED) Additional Instructions: Your blood counts today were stable. Call Dr. Torres his office tomorrow to arrange an outpatient appointment. Recommend liquid diet for the next 24 hours and slowly advanced as tolerated. If you develop new or worsening symptoms call 911 or come back to the ER for further evaluation. Prescriptions: No Action cyclobenzaprine 10 mg tablet 1 tab PO TID PRN (Reason: pain) hydroxyzine HCl 50 mg tablet 1 tab PO BID PRN (Reason: Anxiety) mirtazapine 15 mg tablet 1 tab BEDTIME zolpidem 10 mg tablet 1 tab PO BEDTIME PRN (Reason: insomnia) fluticasone propionate 50 mcg/actuation spray,suspension 2 spray intranasal DAILY PRN (Reason: Allergy Symptoms) amitriptyline 100 mg tablet 1 tab BEDTIME famotidine 20 mg tablet 20 mg PO BID sumatriptan succinate 100 mg tablet 0 mg PO tramadol 50 mg tablet 50 mg PO Q6H PRN (Reason: Pain) omeprazole 40 mg capsule,delayed release(DR/EC) 40 mg PO DAILY Ref[place]: [facility] [place]Provider Group] ([facility]) Interventions: ED Discharge Assessment Last Done: 02/28/23 17:50 Discharge Date/Time: 02/28/23 17:50 Print Language: Argentine
--- OUTSIDE RECORDS SUMMARY | 2023-02-28 11:25 | XMS_ITS | Patient Health Record ---
Author Name Unknown Organization [facility] Address [address] [place] [address] Care Team Providers Care Shipping Clerk Crating Name Role Phone Lety Watson Primary Care Provider Chico Lopez Unavailable [phone] ALLERGIES Allergen (clinical drug ingredient) Drug/Non Drug Allergy documented on EMR Reaction Allergy Type Onset Date Status Penicillin Unknown Drug Allergy Active codeine Codeine Sulfate Unknown Drug Allergy A ctive RESULTS Component Value Reference Range Notes Amylase Reviewed date:07/06/2022 11:08:35 PM Interpretation: Performing Lab:[facility], [address] [place] [phone] Notes/Report: Amylase 77 28-100 U/L Lipase Reviewed date:07/06/2022 11:08:27 PM Interpretation: Performing Lab:[facility], [address] [place] [phone] Notes/Report: Lipase 22 8-78 U/L Complete Blood Count Auto Di ff Reviewed date:07/06/2022 11:08:09 PM Interpretation: Performing Lab:[facility], [address] [place] [phone] Notes/Report: White Blood Count 8.3 4.8-10.8 X10*3/uL [...] Panel Reviewed date:07/06/2022 11:08:19 PM Interpretation: Performing Lab:[facility], [address] [place] [phone] Notes/Report: Bilirubin Total 0.4 0.0-1.0 mg/dL Bilirubin Direct < 0.2 0.0-0.5 mg/dL Aspartate Amino Transferase 19 5-31 U/L Alanine Aminotransferase 17 0-31 U/L Total Protein 7.5 6.5-8.0 g/dL Albumin Level 4.8 3.5-5.0 g/dL Alkaline Phosphatase 81 39-117 U/L Pathology (Not yet reviewed by provider) Interpretation: Performing Lab:[facility], [address] [place] [phone] Notes/Report: REASON FOR REFERRAL Referring Provider First Name Lety Referring Provider Last Name Thienrobbin Referred Organization [facility] Referred Provider Chico Torres Referred Address [address] [place] [address],[facility] [address],[place], [place],[address],[place] Referred Provider Specialty Gastroentero logy Referral Priority [...] TABLETS PER 24HRS Oral for 15 Active Zqwzksctab-PACZ-Gbtpdzka 50-325-40 MG TAKE 1 TABLET BY MOUTH EVERY 6 HOURS NEEDED Oral for 30 Active Vitamin D (Ergocalciferol) 61437 UNIT TAKE ONE CAPSULE BY MOUTH ONE [...] Problem Epigastric abdominal pain (R10.13) Active confirmed 66302690 Problem Gastroesophageal reflux disease (K21.9) Active confirmed Gastroesophagea l reflux disease (314940443) Problem Abdominal pain, epigastric (R10.13) Active confirmed 39070928 Problem Gastroesophageal reflux disease, esophagitis presence not specified (K21.9) Active confirmed 152558977 Problem Gastritis (K29.70) Active confirmed Gas tritis (7414050) Problem Gastroesophageal reflux disease, unspecified whether esophagitis present (K21.9) Active confirmed [id number] Encounters Encounter Location Date Provider Diagnosis [facility] [place] [facility] [address] [place], [place] [id number] 08/17/2022 Chico Torres Hiatal hernia K44.9 ; Gastroesophageal reflux disease K21.9 ; Gastritis K29.70 and Abdominal pain R10.9 [facility] [address] [place] [address] 07/06/2022 Chico Torres Epigastric abdominal pain R10.13 [...] Start Date Coverage End Date [facility] OF [facility] [address] [place] [address] [phone] [id number] GERARD DIETZ Self - patient is the insured MEDICAL (GENERAL) HISTORY Medical History History ICD Code IBS--good relief with Bentyl Asthma GERD--EGD 05/2011 with a small hiatal he rnia-bx neg. for H.pylori Depression Back pain--has a nerve stimulator for ch ronic pain Denies NV,DM,CVA,renal disease Fibromyalgia Arthritis Negative colonoscopy in 09/[address] of abdomen in 08/2018 and in 2020 Migraines Peripheral neuropathy Memory loss Surgical History Surgery Date(Month/Year) [facility] Hernia surgery-left inguinal BTL D & C Eyelid surgery Pain stimulator implant-2011, with new b attery 2018
[2023-02-28 11:28] LABS: MANUAL DIFF FLAG NO
[2023-02-28 11:32] LABS: Appearance Urine Clear; Color Urine Yellow; Glucose Urine UA Negative (Negative); Leukocyte Esterase Urine Large (3+) (Negative); Nitrite Urine Negative (Negative); UMIC TRIGGER UACC YES; Urine Blood Trace (Negative); Urine Ketones Negative (Negative); Urine Protein Negative (Neg-Trace)
[2023-02-28 11:34] LABS: Basophils Percent Auto 0.2 % (0-2); Eosinophils Percent Auto 0.3 % (0-4); Hematocrit 40.9 % (37.0-47.0); Hemoglobin 13.4 g/dl (12.0-16.0); Imm Gran Abs Auto 0.01 X10*3/uL (0.00-0.03); Imm Gran Pct Auto 0.2 % (0.0-0.4); Lymphocytes Absolute Auto 1.3 X10*3/uL (1.2-4.9); Lymphocytes Percent Auto 21.8 % (20-40); Mean Corpuscular HGB Conc 32.8 g/dl (31.0-35.0); Mean Corpuscular Hemoglobin 27.1 pg (27.0-33.0); Mean Corpuscular Volume 82.8 fL (80.0-98.0); Mean Platelet Volume 10.9 fL (9.4-12.3); Monocytes Absolute Auto 0.2 X10*3/uL (0.1-1.2); Neutrophils Absolute Auto 4.4 x10*3/uL (2.0-8.3); Neutrophils Percent Auto 73.5 % (45-73); Platelet Count 186 X10*3/uL (160-400); Red Blood Count 4.94 X10*6/uL (4.20-5.50); Red Cell Distribution Width 13.6 % (11.0-16.0); White Blood Count 5.9 X10*3/uL (4.8-10.8)
[2023-02-28 11:42] LABS: Bacteria Urine 1+ (None Seen); Hyaline Casts Urine 0-2 /LPF (0-2); RBC Urine 0-2 /HPF (0-2); Squamous Epithelial Cell Urine 0-2 /HPF (0-2); UACC Culture Trigger YES
[2023-02-28 11:44] LABS: Alanine Aminotransferase 16 U/L (0-31); Albumin Level 4.3 g/dL (3.5-5.0); Alkaline Phosphatase 68 U/L (39-117); Anion Gap 9 (12-20); Aspartate Amino Transferase 17 U/L (5-31); Bilirubin Direct 0.2 mg/dL (0.0-0.5); Bilirubin Total 0.6 mg/dL (0.0-1.0); Blood Urea Nitrogen 11 mg/dL (9-16); Calcium 9.3 mg/dL (8.4-10.2); Carbon Dioxide 24 mmol/L (22-29); Chloride 111 mmol/L (96-108); Creatinine Clr Calc Pharmacy 67.5; Estimated Glomerular Filt Rate > 60; Glucose Random 79 mg/dL (60-115); Lipase 23 U/L (8-78); Potassium 3.8 mmol/L (3.3-5.1); Sodium 140 mmol/L (135-145); Total Protein 6.9 g/dL (6.5-8.0)
[2023-02-28 11:45] LABS: Prothrombin Time 12.2 SEC (11.1-13.3)
[2023-02-28 11:52] LABS: Troponin-I High Sensitivity < 2.7 ng/L (<3.5-17.0)
[2023-02-28 13:44] VITALS: BP 98/58; PULSE 67; RESP 16; O2SAT 99
[2023-02-28 13:45] VITALS: BP 98/58; PULSE 64
[2023-02-28 13:46] VITALS: BP 114/71; PULSE 66
[2023-02-28 13:49] VITALS: BP 104/67; PULSE 66
[2023-02-28 16:25] LABS: OBS Int Ctl Valid YES; OBS1 POSITIVE (NEGATIVE)
[2023-02-28 16:34] LABS: Hematocrit 40.7 % (37.0-47.0); Hemoglobin 13.3 g/dl (12.0-16.0)
== END 2023-02-28 17:50 | disposition home or self-care (01) ==
PROVIDERS: Nurse Practitioner Acute Care; Physician Assistant; Emergency Provider Student in an Organized Health Care Education/Training Program; PCP Internal Medicine
DX: K92.2 Gastrointestinal hemorrhage, unspecified (principal); R51.9 Headache, unspecified; Z91.81 History of falling; Z87.891 Personal history of nicotine dependence
CPT/HCPCS: 36415; 70450; 72125; 80048; 80076; 81001; 82272; 83690; 83735; 84484; 85014; 85018; 85025; 85610; 87086; 87088; 87147; 87186; 93005; 99284

== ENCOUNTER 2023-03-09 15:31 | Outpatient (AMB) | payer MEDICAID, SELFPAY ==
--- NOTE | 2023-03-09 16:12 | MHC.OFFVIS ---
Intake Vital Signs 03/09/23 16:13 Height 5 ft 6 in Weight 152 lb BMI 24.5 BP 108/62 Intake Visit Reasons: post op Fashion Merchandiser Required: Yes Fashion Merchandiser Language: Building Services Engineer Name: Christine ALMAZAN Information Interpreted: non-clinical & clinical Accompanied by: Self / Same As Patient Allergies codeine [Codeine] Allergy (Mild, Verified 03/09/23 16:14) RASH Penicillins Allergy (Mild, Verified 03/09/23 16:14) RASH penicillin V Allergy (Unknown, Verified 03/09/23 16:14) hives tape adhesive Allergy (Mild, Uncoded 03/09/23 16:14) rash Post menopausal: Yes HPI HPI Comments History of Present Illness Details The patient is presenting for follow-up post LEEP cone. The patient is doing well with no complaints. The patient had NINO 3, LEEP cone pathology showed the following: A. Cervical cone at 12 o'clock, LEEP: - High-grade squamous intraepithelial lesion (NINO 2-3); endocervical and ectocervical margins negative. - Previous biopsy site changes noted. B. Endocervix, top hat, excision: Benign endocervical epithelium, negative for a squamous intraepithelial lesion. C. Endocervix, post cone, biopsy: Fragments of squamous mucosa with acute inflammation and granulation tissue; no endocervical tissue seen; negative for a squamous intraepithelial lesion [facility] Medical History Cervical high risk human papillomavirus (HPV) DNA test positive Memory loss Peripheral neuropathy Arthritis IBS (irritable bowel syndrome) Bipolar 1 disorder Depression Anxiety Acid reflux Migraine Asthma Osteoarthritis Fibromyalgia Surgical History History of eyelid surgery H/O dilation and curettage History of bilateral tubal ligation H/O left inguinal hernia repair History of cholecystectomy Social History Household Members Other:: daughter Housing: Apartment Alcohol intake: never Patient Tobacco Use Status: Former Tobacco user Quit Date: > 10 yrs ago Current occupational status: disabled Sexual orientation: Straight/Heterosexual Gender identity: Female Review of Systems Const All systems reviewed & are unremarkable except as noted in HPI and below Reports as per HPI and Reports no additional complaints GI Reports no additional complaints Reports no additional complaints Physical Exam Vital Signs: Last Vital Signs BP 108/62 03/09/23 16:13 BMI result Body Mass Index 24.5 Assessment & Plan Assessment & Plan (1) 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 Instructions given to the patient to schedule an HPV based screening in 6 months, if normal then co testing Q year x 3 , if wnl cotest q3 x 25 years check the results and treat accordingly. Instructions given the patient to schedule 6 months co testing appointment. All questions answered patient verbalized understanding. 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
[2023-03-09 16:13] VITALS: BP 108/62; BMI 24.5
== END 2023-03-09 16:21 | disposition home or self-care (01) ==
PROVIDERS: PCP Internal Medicine; Visit Provider Obstetrics & Gynecology
DX: D06.9 Carcinoma in situ of cervix, unspecified (principal)
CPT/HCPCS: 99213

== ENCOUNTER → 2023-03-09 15:31 | Outpatient (BNVA) | payer MEDICAID, SELFPAY | PROVIDERS: PCP Internal Medicine; Visit Provider Obstetrics & Gynecology | DX: Z48.816 Encounter for surgical aftercare following surgery on the genitourinary system (principal); D06.9 Carcinoma in situ of cervix, unspecified | CPT/HCPCS: 99212 ==

== ENCOUNTER 2023-04-13 14:28 | Outpatient (REF) | payer MEDICAID, SELFPAY ==
--- NOTE | ~2023-04-13 | MM_ITS ---
EXAMINATION: MM SCREENING DIGITAL BREAST TOMOSYNTHESIS, BILATERAL CLINICAL INFORMATION: Screening. Asymptomatic. COMPARISON: Mammography: This study is compared with prior exams dating back to 2018. TECHNIQUE: Digital breast tomosynthesis is performed in both the craniocaudal and mediolateral oblique views along with computer-aided detection (CAD). Synthesized 2D images are generated from the tomosynthesis. FINDINGS: There are scattered areas of fibroglandular density (ACR BI-RADS breast composition Category b). There are no significant masses, abnormal calcifications, or other abnormalities. There is tissue marker present in the right breast from prior benign percutaneous biopsy. There are benign calcifications in the upper outer quadrant of the left breast. MM/MM tomosynthesis screening BI IMPRESSION: No mammographic evidence of malignancy. ASSESSMENT: BI-RADS BI-RADS 2 - Benign Findings RECOMMENDATION: Routine annual mammography screening. 1 year F/U This examination should not preclude the clinical evaluation of a suspicious palpable abnormality. This patient's information was entered into a reminder system with a target due date for their next mammogram.
== END 2023-04-13 14:29 | disposition home or self-care (01) ==
LOC: HO.MAMMO 14:28
PROVIDERS: PCP Internal Medicine; Visit Provider Internal Medicine
DX: Z12.31 Encounter for screening mammogram for malignant neoplasm of breast (principal)
CPT/HCPCS: 77063; 77067

== ENCOUNTER → 2023-04-13 14:45 | Outpatient (BNV) | payer MEDICAID, SELFPAY | PROVIDERS: PCP Internal Medicine; Visit Provider Radiology Diagnostic Radiology | DX: Z12.31 Encounter for screening mammogram for malignant neoplasm of breast (principal) | CPT/HCPCS: 77063; 77067 ==

== ENCOUNTER 2023-05-10 08:10 | Day surgery (SDC) | payer MEDICAID, SELFPAY ==
[2023-05-08 11:26] VITALS: BMI 24.5
--- NOTE | 2023-05-09 09:35 | HO.ANESPROP2 ---
Documented by User: Rachelle Gannon NP 05/09/23 09:40 HPI - Anesthesia Eval Consult details Narrative: 58yo F for Colonoscopy PMFSH Active Problems All Active Problems NINO III (cervical intraepithelial neoplasia grade III) with severe dysplasia (Acute) Cervical high risk human papillomavirus (HPV) DNA test positive (Acute) Varicose veins of right lower extremity with inflammation (Acute) Past Medical History Medical History Cervical high risk human papillomavirus (HPV) DNA test positive Memory loss Peripheral neuropathy Arthritis IBS (irritable bowel syndrome) Bipolar 1 disorder Depression Anxiety Acid reflux Migraine Asthma Osteoarthritis Fibromyalgia Family History Family history of problems with anesthesia: No Surgical History Surgical History History of eyelid surgery H/O dilation and curettage History of bilateral tubal ligation H/O left inguinal hernia repair History of cholecystectomy History of Problems with Anesthesia: No Social History Household Members Other:: daughter Housing: Apartment Alcohol intake: never Patient Tobacco Use Status: Former Tobacco user Quit Date: > 10 yrs ago Are you DNR?: No Advance Directives: No Advance Directives Information Provided: Yes Current occupational status: disabled Sexual orientation: Straight/Heterosexual Gender identity: Female Meds Allergies Allergy/AdvReac Type Severity Reaction Status Date / Time codeine [Codeine] Allergy Mild RASH Verified 03/09/23 16:14 Penicillins Allergy Mild RASH Verified 03/09/23 16:14 penicillin V Allergy Unknown hives Verified 03/09/23 16:14 tape adhesive Allergy Mild rash Uncoded 03/09/23 16:14 Home Medications Medication Instructions Recorded Confirmed Last Taken Type famotidine 20 mg tablet 20 mg PO BID 05/03/22 Unknown History omeprazole 40 mg capsule,delayed 40 mg PO DAILY 05/03/22 05/10/23 History release sumatriptan succinate 100 mg tablet 0 mg PO 05/03/22 Unknown History amitriptyline 100 mg tablet 1 tab BEDTIME 08/16/22 08/16/22 Unknown History fluticasone propionate 50 2 spray intranasal DAILY PRN 08/16/22 08/16/22 Unknown History mcg/actuation nasal Allergy Symptoms spray,suspension mirtazapine 15 mg tablet 1 tab BEDTIME 08/16/22 08/16/22 Unknown History Exam Height,Weight and Vital Signs: Height 5 ft 6 in Weight 68.94 kg Pertinent Lab Results Pertinent Lab Results: Laboratory Tests 02/28/23 02/28/23 02/28/23 11:22 11:22 16:21 WBC 5.9 Hgb 13.3 Hct 40.7 Plt Count 186 Sodium 140 Potassium 3.8 Chloride 111 H Carbon Dioxide 24 BUN 11 Creatinine 0.86 Narrative Narrative: EKG 02/2023 Vent. Rate : 071 BPM Atrial Rate : 071 BPM P-R Int : 166 ms QRS Dur : 078 ms QT Int : 402 ms P-R-T Axes : 068 018 051 degrees QTc Int : 436 ms Normal sinus rhythm Nonspecific T wave abnormality Abnormal ECG When compared with ECG of 14-SEP-2018 22:19, QT has shortened Assessment and Plan Assessment Anesthesia Assessment: Chart Reviewed Final Anesthetic Review Family History of Problems with Anesthesia: No History of Problems with Anesthesia: No Documented by User: Ania Thomas MD 05/10/23 08:59 PMFSH Active Problems All Active Problems NINO III (cervical intraepithelial neoplasia grade III) with severe dysplasia (Acute) Cervical high risk human papillomavirus (HPV) DNA test positive (Acute) Varicose veins of right lower extremity with inflammation (Acute) Past Medical History Medical History Cervical high risk human papillomavirus (HPV) DNA test positive Memory loss Peripheral neuropathy Arthritis IBS (irritable bowel syndrome) Bipolar 1 disorder Depression Anxiety Acid reflux Migraine Asthma Osteoarthritis Fibromyalgia Surgical History Surgical History History of eyelid surgery H/O dilation and curettage History of bilateral tubal ligation H/O left inguinal hernia repair History of cholecystectomy Social History Household Members Other:: daughter Housing: Apartment Alcohol intake: never Patient Tobacco Use Status: Former Tobacco user Quit Date: > 10 yrs ago Are you DNR?: No Advance Directives: No Advance Directives Information Provided: Yes Current occupational status: disabled Sexual orientation: Straight/Heterosexual Gender identity: Female Meds Allergies Allergy/AdvReac Type Severity Reaction Status Date / Time codeine [Codeine] Allergy Mild RASH Verified 03/09/23 16:14 Penicillins Allergy Mild RASH Verified 03/09/23 16:14 penicillin V Allergy Unknown hives Verified 03/09/23 16:14 tape adhesive Allergy Mild rash Uncoded 03/09/23 16:14 Home Medications Medication Instructions Recorded Confirmed Last Taken Type famotidine 20 mg tablet 20 mg PO BID 05/03/22 Unknown History omeprazole 40 mg capsule,delayed 40 mg PO DAILY 05/03/22 05/10/23 History release sumatriptan succinate 100 mg tablet 0 mg PO 05/03/22 Unknown History amitriptyline 100 mg tablet 1 tab BEDTIME 08/16/22 08/16/22 Unknown History fluticasone propionate 50 2 spray intranasal DAILY PRN 08/16/22 08/16/22 Unknown History mcg/actuation nasal Allergy Symptoms spray,suspension mirtazapine 15 mg tablet 1 tab BEDTIME 08/16/22 08/16/22 Unknown History Exam Airway Mallampati Class: II TM Dist: >3cm Neck ROM: Full Heart: rrr Lungs: cta Assessment and Plan Assessment Anesthesia Assessment: Anesthesia Plan Discussed Final Anesthetic Review NPO: Yes ASA Class: II and III Final Preanesthetic Review: No Changes in Pt Med Stat, Meds/Allgs Chart Reviewed, Consent Obtained/Reviewed and Anes Risks/Benef Reviewed Patient Risk: Low Procedure Risk: Low Anesthetic Plan Anesthetic Plan: MAC: Disposition: Standard PACU
--- OUTSIDE RECORDS SUMMARY | 2023-05-10 08:13 | XMS_ITS | Patient Health Record ---
Author Name Unknown Organization [facility] Address [address] [place] [address] Care Team Providers Care Traffic Superintendent Name Role Phone Lety Watson M.D. Primary Care Provider Chico Dash Unavailable [phone] ALLERGIES Allergen (clinical drug ingredient) Drug/Non Drug Allergy documented on EMR Reaction Allergy Type Onset Date Status Penicillin Unknown Drug Allergy Active codeine Codeine Sulfate Unknown Drug Allergy A ctive RESULTS Component Value Reference Range Notes Amylase Reviewed date:07/06/2022 11:08:35 PM Interpretation: Performing Lab:[facility], [address] [place] [phone] Notes/Report: Amylase 77 28-100 U/L Lipase Reviewed date:07/06/2022 11:08:27 PM Interpretation: Performing Lab:[facility], [address] [place] [phone] Notes/Report: Lipase 22 8-78 U/L Complete Blood Count Auto Di ff Reviewed date:07/06/2022 11:08:09 PM Interpretation: Performing Lab:[facility], [address] [place] [phone] Notes/Report: White Blood Count 8.3 4.8-10.8 X10*3/uL [...] Panel Reviewed date:07/06/2022 11:08:19 PM Interpretation: Performing Lab:[facility], [address] [place] [phone] Notes/Report: Bilirubin Total 0.4 0.0-1.0 mg/dL Bilirubin Direct < 0.2 0.0-0.5 mg/dL Aspartate Amino Transferase 19 5-31 U/L Alanine Aminotransferase 17 0-31 U/L Total Protein 7.5 6.5-8.0 g/dL Albumin Level 4.8 3.5-5.0 g/dL Alkaline Phosphatase 81 39-117 U/L Pathology Reviewed date:03/07/2023 08:56:08 AM Interpretation: Performing Lab:[facility], [address] [place] [phone] Notes/Report: REASON FOR REFERRAL Referring Provider First Name Lety Referring Provider Last Name [facility] Referred Organization [facility] Referred Provider Chico Torres Referred Address [address] [place] [address],[facility] [address],[place], [place],[address],[place] Referred Provider Specialty Gastroentero logy Referral Priority Routine Referring Provider First Name Lety Referring Provider Last Name Walter Referred Organization [facility] Referred Provider Chico Torres Referred Address [address] [facility],[address],[place],[address],[place] Referred Provider Specialty Gastroentero logy General Notes Mariaelena Carvajal 023 10:45:24 AM EDT > [facility] [phone] Torres on 03-07-2023 Referral Priority Routine MEDICATIONS Medication SIG (Take, Route, Frequency, Duration) Notes Start Date End Date Status Lidocaine 5 % APPLY 1 PATCH EVERY DAY MAY WEAR UP TO 12 HOURS External for 30 Active Cyclobenzaprine HCl 10 MG TAKE 1 TABLET BY MOUTH THREE TIMES A DAY NEEDED Oral for 30 Active Mirtazapine 45 MG 1 tablet at bedtime Orally Once a day for 30 day(s) Active MiraLax (colon prep) 17 GM/SCOOP 1 238 Gm bottle mixed with Gatorade or Crystal Light Orally begin at 5:00 p.m. the day before the procedure for 1 day 03/20/2023 Active Fluticasone Propionate (Inhal) 50 MCG/BLIST 1 puff Inhalation Twice a day Active Nitrofurantoin Monohyd Macro 100 MG TOME 1 C PSULA POR V A ORAL DOS VECES AL D A POR 5 D CON ALIMENTO Oral for 5 Active hydrOXYzine HCl 50 MG TAKE 1 TO 2 TABLET S BY MOUTH AT BEDTIME NEEDED FOR INSOMNIA Oral for 30 Active Zolpidem Tartrate 10 MG (Schedule IV Twin g) TAKE 1 TABLET AT BEDTIME NEEDED FOR INSOMNIA Oral for 30 Active Dulcolax (colon prep) 5 MG take at 3:00 p.m and 7:00p.m. Orally two tablets twice a day for one day for 1 day 03/20/2023 Active Amitriptyline HCl 100 MG TAKE 1 TABLET B Y MOUTH EVERYDAY AT BEDTIME Oral for 30 Active Maalox Max 400-400-40 MG/5ML 10 ml as ne eded Orally Four times a day Active Omeprazole 40 MG 1 capsule Orally Onc e a day Active Famotidine 20 MG TOME JJ TABLETA DOS VECES AL D A Oral for 90 Active ProAir HFA 108 (90 Base) MCG/ACT 2 puffs as needed Inhalation every 6 hrs Active Acetaminophen Extra Strength 500 MG TAKE 1 TABLET BY ORAL ROUTE EVERY 4 - 6 HOURS NEEDED NOT TO EXCEED 8 TABLETS PER 24HRS Oral for 30 Active IMMUNIZATIONS Vaccine Route [...] Problem Epigastric abdominal pain (R10.13) Active confirmed 83938205 Problem Rectal bleeding (K62.5) Active confirmed 56838349 Problem Gastroesophageal reflux disease (K21.9) Active confirmed Gastroesophagea l reflux disease (252828864) Problem Abdominal pain, epigastric (R10.13) Active confirmed 61785568 Problem Gastroesophageal reflux disease, esophagitis presence not specified (K21.9) Active confirmed 499591628 Problem Gastritis (K29.70) Active confirmed Gas tritis (7179308) Problem Gastroesophageal reflux disease, unspecified whether esophagitis present (K21.9) Active confirmed [id number] Encounters Encounter Location Date Provider Diagnosis [facility] [address] [place], [place] [phone] 05/10/2023 Chico Torres [facility] [address] [place] [phone] 08/17/2022 Chico Torres Hiatal hernia K44.9 ; Gastroesophageal reflux disease K21.9 ; Gastritis K29.70 and Abdominal pain R10.9 [facility] [address] [place] [phone] 07/06/2022 Chico Torres Epigastric abdominal pain R10.13 and Gastroesophageal reflux disease, unspecified whether esophagitis present K21.9 [facility] [address] [place] [phone] 03/07/2023 Chico Torres Rectal bleeding K62. 5 [facility] [address] [place] [address] 03/01/2023 Chico Torres [facility] [address] [place] [phone] 03/07/2023 Chico Torres ASSESSMENTS Encounter Date Diagnosis Assessment Notes Treatment [...] unspecified whether esophagitis present (ICD-10 - K21.9) 03/07/2023 Rectal bleeding (ICD-10 - K62.5) You can try some Preparation H suppository as needed for any rectal bleeding 08/17/2022 Gastritis (ICD-10 - K29.70) 08/17/2022 Abdominal pain (ICD- 10 - R10.9) 07/06/2022 Other Repeat colonoscopy in 2024 PLAN OF TREATMENT Pending Test Test Name Order Date LIVER PROFILE 07/06/2022 CBC w DIFF 07/06/2022 Future Test Test Name Order Date COLONOSCOPY 07/31/2014 UPPER GI ENDOSCOPY 07/06/2022 COLONOSCOPY 03/07/2023 Next Appt Details Provider Name:Chico Torres , 05/10/2023 09:30:00 AM, [address] [place] [address] , [place], [place], [phone], Insurance Providers Payer Name Payer Address Payer Phone Subscriber Number Group Number Insured Name Patient Relationship to Insured Coverage Start Date Coverage End Date MEDICA[employer] OF [employer] [address] [place] [phone] [id number] GERARD DIETZ Self - patient is the insured MEDICAL (GENERAL) HISTORY Medical History History ICD Code IBS--good relief with Bentyl Asthma GERD--EGD 05/2011 with a sma ll hiatal hernia-bx neg. for H.pylori; upper endoscopy in August of 2022 revealed a small to moderate size hiatal hernia but no evidence of any significant esophagitis, Redman's esophagus, ulcer disease, nor H. pylori Depression Back pain--has a nerve stimulator for ch ronic pain Denies [place],DM,CVA,renal disease Fibromyalgia Arthritis Negative colonoscopy in 09/[address] of abdomen in 08/2018 and in 2020 Migraines Peripheral neuropathy Memory loss EGD 08/2022 with a small to m oderate-sized hiatal hernia---no esophagitis, Redman's esophagus, nor H.pylori Surgical History Surgery Date(Month/Year) [facility]Y Hernia surgery-left inguinal BTL D & C Eyelid surgery Pain stimulator implant-2011, with new b attery 2019 LEEP surgery 02/2023
[2023-05-10 08:20] VITALS: BP 106/68; PULSE 100; RESP 20; TEMP 36.8; O2SAT 96
[2023-05-10 08:30] VITALS: BMI 24.4
[2023-05-10] MEDS: Lactated Ringers 1,000 ML 100 ML IVCONT (08:40)
[2023-05-10] MEDS: Albuterol Sulfate (0.083%) 2.5 MG/3 ML VIAL.NEB INHALE (08:49)
[2023-05-10 08:51] VITALS: PULSE 77; RESP 16; O2SAT 98
--- NOTE | 2023-05-10 10:51 | PM.OP ---
Brief Operative Note Date of Service: 05/10/23 Pre-op diagnosis: Rectal bleeding Post-op diagnosis: other (Internal hemorrhoids) Procedure: Colonoscopy to the cecum and TI Surgeon: Chico Torres MD Anesthesia: MAC Was an Shear Operator Helper used for this Procedure?: No Estimated blood loss (mL): 0 Pathology: none sent Condition: stable Disposition: PACU
[2023-05-10 10:55] VITALS: BP 85/54; PULSE 75; RESP 15; TEMP 36.8; O2SAT 99
[2023-05-10 11:10] VITALS: BP 111/68; PULSE 77; RESP 20; TEMP 37; O2SAT 99
--- NOTE | 2023-05-10 11:12 | OP_ITS ---
DATE OF SERVICE: 05/10/2023 SURGEON: Chico Torres MD INDICATIONS: The patient presents for evaluation of intermittent hematochezia. Full consent has been obtained from her for this, including risks of bleeding and perforation. PREOPERATIVE DIAGNOSIS: Hematochezia. POSTOPERATIVE DIAGNOSIS: PROCEDURE PERFORMED: Colonoscopy to cecum and terminal ileum. ESTIMATED BLOOD LOSS: COMPLICATIONS: ANESTHESIA: Monitored anesthesia care. ASSISTANTS: SPECIMENS: POSTOPERATIVE DIAGNOSES: Hematochezia, diverticulosis, internal hemorrhoids. DESCRIPTION OF PROCEDURE: The patient was placed in the left lateral decubitus position. The digital rectal exam revealed no abnormalities. The Olympus video pediatric colonoscope was entered into the rectum and advanced easily to the cecum. Once in the cecum, I did identify normal-appearing cecal pouch with appendiceal orifice and a normal-appearing ileocecal valve. The terminal ileum was cannulated and appeared normal. The scope was withdrawn back in the colon. The entire cecum and ileocecal valve appeared normal. The scope was slowly withdrawn assessing all mucosal surfaces carefully. Preparation was excellent. I did not visualize any sign of polyps, colitis, nor angiodysplasia. There was a mild amount of sigmoid diverticulosis. In the rectum, scope was retroflexed visualizing internal hemorrhoids, but no other pathology. The rectal mucosa appeared normal. The scope was straightened and withdrawn the patient. She tolerated the procedure well and was returned to the recovery area in stable condition. IMPRESSION: 1. Diverticulosis. 2. Internal hemorrhoids. PLAN: Given today's negative exam and no family history of colon cancer, I would recommend a followup coloscopy in 10 years for further screening. She will otherwise see me on a p.r.n. basis. MD KIRIT Ace/ALEE / [phone]
== END 2023-05-10 11:35 | disposition home or self-care (01) ==
PROVIDERS: PCP Internal Medicine; Visit Provider Internal Medicine
PROC: 0DJD8ZZ Inspection of Lower Intestinal Tract, Via Natural or Artificial Opening Endoscopic (ICD-10-PCS; CPT 45378; principal; 2023-05-10 09:30)
DX: K62.5 Hemorrhage of anus and rectum (principal); K57.30 Diverticulosis of large intestine without perforation or abscess without bleeding; K64.8 Other hemorrhoids; K58.9 Irritable bowel syndrome, unspecified; K21.9 Gastro-esophageal reflux disease without esophagitis; G89.29 Other chronic pain; M54.9 Dorsalgia, unspecified; Z96.82 Presence of neurostimulator; F32.A Depression, unspecified; M79.7 Fibromyalgia; G62.9 Polyneuropathy, unspecified; J45.909 Unspecified asthma, uncomplicated; G43.909 Migraine, unspecified, not intractable, without status migrainosus; R41.3 Other amnesia; L23.1 Allergic contact dermatitis due to adhesives; Z79.899 Other long term (current) drug therapy; Z88.5 Allergy status to narcotic agent; Z88.0 Allergy status to penicillin; Z87.891 Personal history of nicotine dependence
CPT/HCPCS: 45378; 94640; J2704

== ENCOUNTER → 2023-11-02 10:35 | Outpatient (BNVA) | payer MEDICAID, SELFPAY | PROVIDERS: PCP Internal Medicine; Visit Provider Obstetrics & Gynecology ==

== ENCOUNTER 2023-11-23 15:19 | Emergency (ER) | payer MEDICAID, SELFPAY ==
--- NOTE | ~2023-11-23 | XR_ITS ---
EXAMINATION: XR LUMBOSACRAL SPINE CLINICAL INFORMATION: Atraumatic low back pain. COMPARISON: Radiograph lumbar spine 01/24/2023. TECHNIQUE: Three views of the lumbosacral spine. FINDINGS: Unchanged mild dextroconvex curvature of the lumbar spine. No evidence of acute compression deformity or subluxation. Stable moderate degenerative changes at L5-S1 with loss of disc space height and facet arthropathy leading to neural foraminal osseous encroachment. No significant paraspinal soft tissue abnormality. Again noted neurostimulator device with leads coursing upwards and terminating outside of the field of view. Right upper quadrant surgical clips. XR/XR lumbar spine 2-3V IMPRESSION: 1. No acute compression deformity or subluxation. 2. Stable moderate degenerative changes at L5-S1 leading to neural foraminal osseous encroachment.
[2023-11-23 16:24] VITALS: BP 94/63; PULSE 81; RESP 18; TEMP 36.7; O2SAT 94; BMI 26.8
--- NOTE | 2023-11-23 16:25 | ED_ITS ---
HPI - Back Pain/Injury General Chief Complaint: Back Pain/Injury Stated Complaint: lower back pain Time Seen by Provider: 11/23/23 22:06 Related Data Home Medications ?Medication ?Instructions ?Recorded ?Confirmed famotidine 20 mg tablet 20 mg PO BID 05/03/22 omeprazole 40 mg capsule,delayed 40 mg PO DAILY 05/03/22 release sumatriptan succinate 100 mg tablet 0 mg PO 05/03/22 amitriptyline 100 mg tablet 1 tab BEDTIME 08/16/22 08/16/22 fluticasone propionate 50 2 spray intranasal DAILY PRN 08/16/22 08/16/22 mcg/actuation nasal Allergy Symptoms spray,suspension mirtazapine 15 mg tablet 1 tab BEDTIME 08/16/22 08/16/22 Allergies Allergy/AdvReac Type Severity Reaction Status Date / Time codeine [Codeine] Allergy Mild RASH Verified 11/23/23 16:28 Penicillins Allergy Mild RASH Verified 11/23/23 16:28 penicillin V Allergy Unknown hives Verified 11/23/23 16:28 tape adhesive Allergy Mild rash Uncoded 11/02/23 11:21 PMFSH Past Medical History Medical History Cervical high risk human papillomavirus (HPV) DNA test positive Memory loss Peripheral neuropathy Arthritis IBS (irritable bowel syndrome) Bipolar 1 disorder Depression Anxiety Acid reflux Migraine Asthma Osteoarthritis Fibromyalgia Surgical History History of eyelid surgery H/O dilation and curettage History of bilateral tubal ligation H/O left inguinal hernia repair History of cholecystectomy Social History Social History Household Members Other:: daughter Housing: Apartment Alcohol intake: never Patient Tobacco Use Status: Former Tobacco user Advance Directives: No Advance Directives Information Provided: No Do you have a plan to hurt others: No Plan Current occupational status: disabled Sexual orientation: Straight/Heterosexual Gender identity: Female Physical Exam Vital Signs: Vital Signs: Last Vital Signs Temp 98.0 F 11/23/23 16:24 Pulse 74 11/23/23 22:12 Resp 17 11/23/23 22:12 BP 109/78 11/23/23 22:12 Pulse Ox 97 11/23/23 22:12 O2 Del Method Room Air 11/23/23 22:12 BMI result Body Mass Index 26.8 Course Course Course Narrative: This is a Rapid Medical Examination (RME) performed by Pa Ashley PA-C in triage. Full HPI, ROS, assessment and treatment plan per primary provider in the Main ED. 58 yo female hx of fibromyalgia acute on chronic low back pain x24 hours. pain localized to b/l lumbar back, no radiation of pain. pain is worse w/ movement. has been taking tyelnol and tizanidine at home without relief. denies dysuria, hematuria. midline lumbar spinous tenderness w/o step off deformity. Plan: xrs Reevaluation(s) Reevaluation #1: This is a duplicate note. Please refer to Dr. Antonio's complete note regarding patient's visit on 11/23/23. Medical Decision Making Lab Data Labs: Lab Results 11/23/23 Range/Units 22:25 Urine Color Yellow Urine Appearance Clear Urine pH 6.0 (5.0-9.0) Ur Specific [place] >= 1.030 H (1.005-1.025) Urine Protein Negative (Neg-Trace) mg/dL Urine Glucose (UA) Negative (Negative) mg/dL Urine Ketones Negative (Negative) mg/dL Urine Blood Negative (Negative) Urine Nitrite Negative (Negative) Ur Leukocyte Esterase Moderate (2+) H (Negative) Urine RBC 0-2 (0-2) /HPF Urine WBC 11-20 H (0-5) /HPF Ur Squamous Epith Cells 3-5 (0-2) /HPF Urine Bacteria None Seen (None Seen) Hyaline Casts 0-2 (0-2) /LPF Discharge Plan Discharge Clinical Impression: Lumbar back pain Patient Disposition: Home, Self-Care Prescriptions: No Action mirtazapine 15 mg tablet 1 tab BEDTIME fluticasone propionate 50 mcg/actuation spray,suspension 2 spray intranasal DAILY PRN (Reason: Allergy Symptoms) amitriptyline 100 mg tablet 1 tab BEDTIME famotidine 20 mg tablet 20 mg PO BID sumatriptan succinate 100 mg tablet 0 mg PO omeprazole 40 mg capsule,delayed release(DR/EC) 40 mg PO DAILY Print Language: Divehi
[2023-11-23 22:12] VITALS: BP 109/78; PULSE 74; RESP 17; O2SAT 97
--- NOTE | 2023-11-23 22:15 | PC.NURSE ---
Ambulatory to restroom with steady gait to provide urine sample.
--- NOTE | 2023-11-23 22:19 | ED_ITS ---
HPI - Back Pain/Injury General Chief Complaint: Back Pain/Injury Stated Complaint: lower back pain Time Seen by Provider: 11/23/23 22:06 History of Present Illness HPI Narrative: Patient is a 58-year-old female with a long history of back pain. There has no fever no chills. There has a back stimulator that was placed in 2011. No fever no chills. No history of IV drug use. Went to see her doctor was given Tylenol and a muscle relaxant. Complained of pain is still persistent. No difficulty with her bowels. Ambulates with a normal gait. Pain is very similar to previous bouts of back pain. Related Data Home Medications ?Medication ?Instructions ?Recorded ?Confirmed famotidine 20 mg tablet 20 mg PO BID 05/03/22 omeprazole 40 mg capsule,delayed 40 mg PO DAILY 05/03/22 release sumatriptan succinate 100 mg tablet 0 mg PO 05/03/22 amitriptyline 100 mg tablet 1 tab BEDTIME 08/16/22 08/16/22 fluticasone propionate 50 2 spray intranasal DAILY PRN 08/16/22 08/16/22 mcg/actuation nasal Allergy Symptoms spray,suspension mirtazapine 15 mg tablet 1 tab BEDTIME 08/16/22 08/16/22 Previous Rx's ?Medication ?Instructions ?Recorded sulfamethoxazole 800 1 tab PO BID 3 days #6 tabs 11/23/23 mg-trimethoprim 160 mg tablet (Bactrim DS) Allergies Allergy/AdvReac Type Severity Reaction Status Date / Time codeine [Codeine] Allergy Mild RASH Verified 11/23/23 16:28 Penicillins Allergy Mild RASH Verified 11/23/23 16:28 penicillin V Allergy Unknown hives Verified 11/23/23 16:28 tape adhesive Allergy Mild rash Uncoded 11/02/23 11:21 Review of Systems Review of Systems: No fever no chills No focal weakness No nausea no vomiting The Yes all other systems are reviewed and are negative PMFSH Past Medical History Medical History Cervical high risk human papillomavirus (HPV) DNA test positive Memory loss Peripheral neuropathy Arthritis IBS (irritable bowel syndrome) Bipolar 1 disorder Depression Anxiety Acid reflux Migraine Asthma Osteoarthritis Fibromyalgia Surgical History History of eyelid surgery H/O dilation and curettage History of bilateral tubal ligation H/O left inguinal hernia repair History of cholecystectomy Social History Social History Household Members Other:: daughter Housing: Apartment Alcohol intake: never Patient Tobacco Use Status: Former Tobacco user Advance Directives: No Advance Directives Information Provided: No Do you have a plan to hurt others: No Plan Current occupational status: disabled Sexual orientation: Straight/Heterosexual Gender identity: Female Physical Exam Vital Signs: Vital Signs: Last Vital Signs Temp 98.0 F 11/23/23 16:24 Pulse 74 11/23/23 22:12 Resp 17 11/23/23 22:12 BP 109/78 11/23/23 22:12 Pulse Ox 97 11/23/23 22:12 O2 Del Method Room Air 11/23/23 22:12 BMI result Body Mass Index 26.8 Appearance: Alert. Oriented X3. No acute distress. Eyes: Pupils equal, round and reactive to light. ENT: Pharynx normal. Neck: Normal inspection. Neck supple. No lymph nodes noted. No crepitus CVS: Normal heart rate and rhythm. Pulses normal. Normal S1 and S2 Respiratory: No respiratory distress. Breath sounds normal. No Wheezing. No rales Abdomen: Soft and nontender. No rigidity. No distention. good BS x4 Skin: Skin warm and dry. Normal skin color. Normal skin turgor. Extremities: No lower extremity edema. Neurovascular intact to all extremities. No Lacerations. No Rash Neuro: Oriented X 3. No motor deficit. No sensory deficit. Moving all extermities. No slurred speech. Ambulates with normal gait. No spinal tenderness elicited on palpation Medical Decision Making Medical Decision Making MDM Narrative: X-ray of the back showed no acute evidence of fracture. No point tenderness elicited on palpation no bowel urinary incontinence. No difficulty ambulating no focal weakness. No evidence for cauda equina syndrome. Will discharge patient home. Asked patient to use ice as needed for pain. Follow-up on an outpatient basis. Continue Tylenol and muscle relaxant. Patient's urine showed a question UTI. Previous culture was reviewed. Patient to be discharged home on Bactrim. In stable condition. There is no CVA tenderness elicited on palpation. Differential Diagnosis Differential Diagnoses: The differential diagnosis associated with the presentation includes Fracture, cauda equina, spinal abscess, urinary tract infection Admission/Observation Consideration of admission/observation: Escalation of care including admission/observation considered Symptoms improving no distress Lab Data MDM Lab Attestation statement: I reviewed the patient's lab results. Labs: Lab Results 11/23/23 Range/Units 22:25 Urine Color Yellow Urine Appearance Clear Urine pH 6.0 (5.0-9.0) Ur Specific [place] >= 1.030 H (1.005-1.025) Urine Protein Negative (Neg-Trace) mg/dL Urine Glucose (UA) Negative (Negative) mg/dL Urine Ketones Negative (Negative) mg/dL Urine Blood Negative (Negative) Urine Nitrite Negative (Negative) Ur Leukocyte Esterase Moderate (2+) H (Negative) Urine RBC 0-2 (0-2) /HPF Urine WBC 11-20 H (0-5) /HPF Ur Squamous Epith Cells 3-5 (0-2) /HPF Urine Bacteria None Seen (None Seen) Hyaline Casts 0-2 (0-2) /LPF Discharge Plan Discharge Clinical Impression: Lumbar back pain, Urinary tract infection Patient Disposition: Home, Self-Care Instructions: Acute Low Back Pain (ED), Urinary Tract Infection in Older Adults (ED) Prescriptions: New sulfamethoxazole-trimethoprim [Bactrim DS] 800-160 mg tablet 1 tab PO BID 3 Days Qty: 6 0RF No Action mirtazapine 15 mg tablet 1 tab BEDTIME fluticasone propionate 50 mcg/actuation spray,suspension 2 spray intranasal DAILY PRN (Reason: Allergy Symptoms) amitriptyline 100 mg tablet 1 tab BEDTIME famotidine 20 mg tablet 20 mg PO BID sumatriptan succinate 100 mg tablet 0 mg PO omeprazole 40 mg capsule,delayed release(DR/EC) 40 mg PO DAILY Referrals: Lety Coronado MD [Primary Care Provider] - 11/27/23 Print Language: Malay
[2023-11-23 22:34] LABS: Appearance Urine Clear; Color Urine Yellow; Glucose Urine UA Negative (Negative); Leukocyte Esterase Urine Moderate (2+) (Negative); Nitrite Urine Negative (Negative); Specific Gravity - Urine >= 1.030 (1.005-1.025); UMIC TRIGGER UACC YES; Urine Blood Negative (Negative); Urine Ketones Negative (Negative); Urine Protein Negative (Neg-Trace)
[2023-11-23 22:51] LABS: Bacteria Urine None Seen (None Seen); Hyaline Casts Urine 0-2 /LPF (0-2); RBC Urine 0-2 /HPF (0-2); UACC Culture Trigger YES
[2023-11-24 00:16] VITALS: BP 104/74; PULSE 74; RESP 16; TEMP 36.2; O2SAT 95
[2023-11-24 00:23] VITALS: BP 104/74; PULSE 74; RESP 16; TEMP 36.2; O2SAT 95
--- OUTSIDE RECORDS SUMMARY | 2023-11-24 11:28 | XMS_ITS | Patient Health Record ---
Author Organization [facility] Address [address] [place] [address] Care Team Providers Care Residential Caregiver Name Role Phone Lety Watson M.D. Primary Care Provider Chico Dash Unavailable [phone] ALLERGIES Allergen (clinical drug ingredient) Drug/Non Drug Allergy documented on EMR Reaction Allergy Type Onset Date Status Penicillin Unknown Drug Allergy Active codeine Codeine Sulfate Unknown Drug Allergy A ctive REASON FOR REFERRAL Referring Provider First Name Lety Referring Provider Last Name Walter Referred Organization [facility] Referred Provider Chico Torres Referred Address [address] [facility],[address],[place], [place],[address], Referred Provider Specialty Gastroentero logy General Notes Mariaelena Carvajal 023 10:45:24 AM EDT > [facility] [phone] Torres on 03-07-2023 [...] Problem Epigastric abdominal pain (R10.13) Active confirmed 00724189 Problem Rectal bleeding (K62.5) Active confirmed 78222488 Problem Diverticulosis of large intestine without perforation or abscess without bleeding (K57.30) Active confirmed Diverticul ar disease of colon (411621362) Problem Gastroesophageal reflux disease (K21.9) Active confirmed Gastroesophagea l reflux disease (413382669) Problem Abdominal pain, epigastric (R10.13) Active confirmed 88618295 Problem Gastroesophageal reflux disease, esophagitis presence not specified (K21.9) Active confirmed 242346906 Problem Gastritis (K29.70) Active confirmed Gas tritis (1107485) Problem Gastroesophageal reflux disease, unspecified whether esophagitis present (K21.9) Active confirmed 420043724 VITAL SIGNS Temperature 96 degrees Fahrenheit 03/07/2023 Blood pressure diastolic 00 mm Hg 03/07/2023 Height 66 in 03/07/2023 Blood pressure systolic 000 mm Hg 03/07/2023 Weight 150 lbs 03/07/2023 BMI 24.21 kg/m2 03/07/2023 Encounters Encounter Location Date Provider Diagnosis [facility] Outpatient [address] [place], [place] [phone] 05/10/2023 Chico Torres Diverticulosis of la rge intestine without perforation or abscess without bleeding K57.30 ; Other hemorrhoids K64.8 and Hematochezia K92.1 [facility] [address] [place] [phone] 03/07/2023 Chico Torres Rectal bleeding K62. 5 [facility] [address] [place] [phone] 03/01/2023 Chico Torres [facility] [address] [place] [address] [place] [phone] 03/07/2023 Chico Torres ASSESSMENTS Encounter Date Diagnosis Assessment Notes Treatment Notes Treatment Clinical Notes 05/10/2023 Diverticulosis of large intestine without perforation or abscess without bleeding (ICD-10 - K57.30) 05/10/2023 Other hemorrhoids (ICD-10 - K64.8) 03/07/2023 Rectal bleeding (ICD-10 - K62.5) You can try some Preparation H suppository as needed for any rectal bleeding 05/10/2023 Hematochezia (ICD-10 - K92.1) PLAN OF TREATMENT Pending Test Test Name Order Date LIVER PROFILE 07/06/2022 CBC w DIFF 07/06/2022 Future Test Test Name Order Date COLONOSCOPY 07/31/2014 UPPER GI ENDOSCOPY 07/06/2022 COLONOSCOPY 03/07/2023 Insurance Providers Payer Name Payer Address Payer Phone Subscriber Number Group Number Insured Name Patient Relationship to Insured Coverage Start Date Coverage End Date MEDICAID OF Paired Health [address] [place] [id number] GERARD DIETZ Self - patient is the [...] nerve stimulator for ch ronic pain Denies MO,DM,CVA,renal disease Fibromyalgia Arthritis Negative colonoscopy in 09/2014 [...]
== END 2023-11-24 00:23 | disposition home or self-care (01) ==
PROVIDERS: Physician Assistant Medical; Emergency Provider Emergency Medicine Emergency Medical Services; PCP Internal Medicine
DX: M54.50 Low back pain, unspecified (principal); N39.0 Urinary tract infection, site not specified; Z79.899 Other long term (current) drug therapy
CPT/HCPCS: 72100; 81001; 87086; 87147; 99283

== ENCOUNTER 2024-03-17 18:21 | Emergency (ER) | payer MEDICAID, SELFPAY ==
[2024-03-17 18:40] VITALS: BMI 20.8
--- NOTE | 2024-03-17 19:26 | ED_ITS ---
HPI - Psych General Chief Complaint: Psychiatric Symptoms Stated Complaint: SI Time Seen by Provider: 03/17/24 19:13 Source: patient, EMS and police Mode of arrival: EMS Limitations: no limitations History of Present Illness ED Provider: DR. Jj HPI Narrative: 59-year-old female brought in by EMS accompanied with the police seeking crisis assessment, patient initially endorsed SI reportedly by EMS in the emergency department patient declined SI or HI patient is very angry and upset appear very anxious because she did not see her family on her Poppy's birthday, patient declined using any drugs, patient declined auditory or visual hallucination. patient is anxious very difficult to redirect the patient. Related Data Home Medications ?Medication ?Instructions ?Recorded ?Confirmed famotidine 20 mg tablet 20 mg PO BID 05/03/22 omeprazole 40 mg capsule,delayed 40 mg PO DAILY 05/03/22 release sumatriptan succinate 100 mg tablet 0 mg PO 05/03/22 amitriptyline 100 mg tablet 1 tab BEDTIME 08/16/22 08/16/22 fluticasone propionate 50 2 spray intranasal DAILY PRN 08/16/22 08/16/22 mcg/actuation nasal Allergy Symptoms spray,suspension mirtazapine 15 mg tablet 1 tab BEDTIME 08/16/22 08/16/22 Previous Rx's ?Medication ?Instructions ?Recorded sulfamethoxazole 800 1 tab PO BID 3 days #6 tabs 11/23/23 mg-trimethoprim 160 mg tablet (Bactrim DS) Allergies Allergy/AdvReac Type Severity Reaction Status Date / Time codeine [Codeine] Allergy Mild RASH Verified 03/17/24 18:48 Penicillins Allergy Mild RASH Verified 03/17/24 18:48 penicillin V Allergy Unknown hives Verified 03/17/24 18:48 tape adhesive Allergy Mild rash Uncoded 03/17/24 18:48 Review of Systems 2 Review of Systems: all other systems are reviewed and are negative Constitutional: Reports as per HPI and Reports no additional constitutional complaints Eyes: Reports as per HPI and Reports no additional eye complaints Reports system reviewed and no additional complaints, except as documented Cardiovascular: Reports as per HPI and Reports no additional cardiovascular complaints Respiratory: Reports as per HPI and Reports no additional respiratory complaints Gastrointestinal: Reports as per HPI and Reports no additional gastrointestinal complaints Genitourinary: Reports no additional female genitourinary complaints Musculoskeletal: Reports no additional musculoskeletal complaints Skin/Breast: Reports system reviewed and no additional complaints, except as docu Psychiatric: Reports no additional psychiatric complaints Endocrine: Reports no additional endocrine complaints Hematologic/Lymphatic: Reports no additional hematologic/lymphatic complaints Allergic/Immunologic: Reports no additional allergic/immunologic complaints Reports system reviewed and no additional complaints, except as documented and Reports Abnormal speech present [facility] Past Medical History Medical History Cervical high risk human papillomavirus (HPV) DNA test positive Memory loss Peripheral neuropathy Arthritis IBS (irritable bowel syndrome) Bipolar 1 disorder Depression Anxiety Acid reflux Migraine Asthma Osteoarthritis Fibromyalgia Surgical History History of eyelid surgery H/O dilation and curettage History of bilateral tubal ligation H/O left inguinal hernia repair History of cholecystectomy Social History Social History Household Members Other:: daughter Housing: Apartment Alcohol intake: never Patient Tobacco Use Status: Former Tobacco user Advance Directives: No Advance Directives Information Provided: No Current occupational status: disabled Sexual orientation: Straight/Heterosexual Gender identity: Female Physical Exam 2 Vital Signs: Vital Signs: BMI result Body Mass Index 20.8 Vital signs have been reviewed and appear to be correct. Blood pressure elevated. Heart rate normal. Respiratory rate normal. Temperature normal. Oxygen saturation normal. Appearance: Alert. Oriented X3. No acute distress. Head: Normal external exam. Normocephalic. Atraumatic. No Diaz signs noted. No raccoon eyes noted Eyes: PERRLA. EOMI. Conjunctiva and sclera normal. Eyelids normal. ENT: TM's Normal. Pharynx normal. Uvula midline. Moist mucous membranes. No trismus noted. No drooling noted. No muffled voice noted. Neck: Normal inspection. Neck supple. FROM. No adenopathy. Thyroid Normal. No meningeal signs. No neck mass noted. CVS: Normal heart rate and rhythm. Heart sound normal. No murmurs noted. Pulses normal throughout. Respiratory: No respiratory distress. Painless inspiration. Breath sounds normal. No wheezes/rales/rhonchi noted. Chest nontender. No accessory muscle usage noted or decreased air movement noted. Abdomen: Soft and nontender. Bowel sounds normal in all 4 quadrants. No distention noted. No organomegaly noted. No visible injury noted. Back: No CVA tenderness. Full range of motion noted. Skin: Skin warm and dry. Normal skin color. Normal skin turgor. No rashes/lesions/lacerations noted. Extremities: No lower extremity edema. Extremities exhibit normal range of motion. Extremities nontender. Neuro: Oriented X 3. Cranial nerve exam: II-XII are grossly intact No motor deficit. No sensory deficit. Reflexes normal. Patient Orientation: anxious, tearful, oriented to Person, Place, Time and Situation, okay hygiene and grooming. Fair eye contact, attentive, no tics or tremors. Level of Consciousness: Awake, Appropriate and Alert Patient Behavior: Appropriate, Guarded, Cooperative and Anxious Mood Description: Constricted, Blunted and Apprehensive Affect Description: Constricted, Blunted and Apprehensive Patient Cognition Impaired: No Ability to Follow Directions: Excellent Speech Pattern: Clear, Appropriate and Spontaneous Speech, nonpressured, spontaneous with regular rate and rhythm, normal volume and prosody. No dysarthria. Memory Description: Intact, Immediate Intact and Short Term Intact Hallucinations: None Delusions: Not Present Thought Process: Intact Thought Content: positive for Intact, positive for Logical, denies Suicidal Ideation and denies Homicidal Ideation. Depressive Symptoms: Not present. Judgement and Insight: Limited but adequate. Course Reevaluation(s) Reevaluation #1: patient is medically cleared, will get care team consultation, continue with physician observation. Time: 20:24 Medical Decision Making Differential Diagnosis Differential Diagnoses: The differential diagnosis associated with the presentation includes ( Acute psychosis, anxiety, depression, SI, medical clearance, UTI, electrolyte derangement, severe anemia.) Admission/Observation Consideration of admission/observation: Escalation of care including admission/observation considered Lab Data MDM Lab Attestation statement: I reviewed the patient's lab results. 03/17/24 19:32 03/17/24 19:32 Labs: Lab Results 03/17/24 03/17/24 Range/Units 19:32 19:42 WBC 7.3 (4.8-10.8) X10*3/uL RBC 5.16 (4.20-5.50) X10*6/uL Hgb 14.1 (12.0-16.0) g/dl Hct 40.9 (37.0-47.0) % MCV 79.3 L (80.0-98.0) fL MCH 27.3 (27.0-33.0) pg MCHC 34.5 (31.0-35.0) g/dl RDW 12.2 (11.0-16.0) % Plt Count 179 (160-400) X10*3/uL MPV 11.0 (9.4-12.3) fL Immature Gran % (Auto) 0.1 (0.0-0.4) % Neut % (Auto) 71.7 (45-73) % Lymph % (Auto) 22.5 (20-40) % [place] % (Auto) 5.6 (2-11) % Eos % (Auto) 0.0 (0-4) % Baso % (Auto) 0.1 (0-2) % Lymph # (Auto) 1.6 (1.2-4.9) X10*3/uL [place] # (Auto) 0.4 (0.1-1.2) X10*3/uL Eos # (Auto) 0.0 (0.0-0.4) X10*3/uL Baso # (Auto) 0.0 (0.0-0.2) X10*3/uL Abs Immat Gran (auto) 0.01 (0.00-0.03) X10*3/uL Absolute Neuts (auto) 5.2 (2.0-8.3) x10*3/uL Absolute Nucleated RBC 0.000 (0.0-0.012) X10*3/uL Nucleated RBC % (auto) 0.0 (0.0-0.2) /100WBC Sodium 132 L (135-145) mmol/L Potassium 3.5 (3.3-5.1) mmol/L Chloride 102 (96-108) mmol/L Carbon Dioxide 20 L (22-29) mmol/L Anion Gap 14 (12-20) BUN 9 (9-16) mg/dL Creatinine 0.77 (0.5-1.4) mg/dL Estim Creat Clear Calc 71.2 Estimated GFR > 60 Random Glucose 103 (60-115) mg/dL Calcium 10.3 H D (8.4-10.2) mg/dL Total Bilirubin 0.5 (0.0-1.0) mg/dL AST 25 (5-31) U/L ALT 20 (0-31) U/L Alkaline Phosphatase 67 (39-117) U/L Total Protein 7.6 (6.5-8.0) g/dL Albumin 4.8 (3.5-5.0) g/dL Urine Color Yellow Urine Appearance Clear Urine pH 5.5 (5.0-9.0) Ur Specific [place] <= 1.005 (1.005-1.025) Urine Protein Negative (Neg-Trace) mg/dL Urine Glucose (UA) Negative (Negative) mg/dL Urine Ketones Negative (Negative) mg/dL Urine Blood Negative (Negative) Urine Nitrite Negative (Negative) Ur Leukocyte Esterase Negative (Negative) Salicylates < 5.0 L (15-30) mg/dL Urine Opiates Screen Not Detected (Not Detect) Ur Buprenorphine Scrn Not Detected (Not Detect) ng/mL Ur Oxycodone Screen Not Detected (Not Detect) ng/mL Urine Methadone Screen Not Detected (Not Detect) ng/mL Urine Fentanyl Screen Not Detected (Not Detect) Acetaminophen < 3 (<30) mcg/mL Ur Barbiturates Screen Not Detected (Not Detect) Ur Phencyclidine Scrn Not Detected (Not Detect) Ur Amphetamines Screen Not Detected (Not Detect) U Benzodiazepines Scrn Not Detected (Not Detect) Urine Cocaine Screen Not Detected (Not Detect) U Marijuana (THC) Screen POSITIVE H (Not Detect) Ethyl Alcohol < 10 mg/dL Discharge Plan Discharge Clinical Impression: Acute anxiety Patient Disposition: Still a Patient Prescriptions: No Action mirtazapine 15 mg tablet 1 tab BEDTIME fluticasone propionate 50 mcg/actuation spray,suspension 2 spray intranasal DAILY PRN (Reason: Allergy Symptoms) amitriptyline 100 mg tablet 1 tab BEDTIME sulfamethoxazole-trimethoprim [Bactrim DS] 800-160 mg tablet 1 tab PO BID 3 Days Qty: 6 0RF famotidine 20 mg tablet 20 mg PO BID sumatriptan succinate 100 mg tablet 0 mg PO omeprazole 40 mg capsule,delayed release(DR/EC) 40 mg PO DAILY Print Language: St Helenian
[2024-03-17 19:40] LABS: MANUAL DIFF FLAG NO
[2024-03-17 19:43] LABS: Basophils Percent Auto 0.1 % (0-2); Hematocrit 40.9 % (37.0-47.0); Hemoglobin 14.1 g/dl (12.0-16.0); Imm Gran Abs Auto 0.01 X10*3/uL (0.00-0.03); Imm Gran Pct Auto 0.1 % (0.0-0.4); Lymphocytes Absolute Auto 1.6 X10*3/uL (1.2-4.9); Lymphocytes Percent Auto 22.5 % (20-40); Mean Corpuscular HGB Conc 34.5 g/dl (31.0-35.0); Mean Corpuscular Hemoglobin 27.3 pg (27.0-33.0); Mean Corpuscular Volume 79.3 fL (80.0-98.0); Monocytes Absolute Auto 0.4 X10*3/uL (0.1-1.2); Monocytes Percent Auto 5.6 % (2-11); Neutrophils Absolute Auto 5.2 x10*3/uL (2.0-8.3); Neutrophils Percent Auto 71.7 % (45-73); Platelet Count 179 X10*3/uL (160-400); Red Blood Count 5.16 X10*6/uL (4.20-5.50); Red Cell Distribution Width 12.2 % (11.0-16.0); White Blood Count 7.3 X10*3/uL (4.8-10.8)
[2024-03-17 19:54] LABS: Appearance Urine Clear; Color Urine Yellow; Glucose Urine UA Negative (Negative); Leukocyte Esterase Urine Negative (Negative); Nitrite Urine Negative (Negative); PH 5.5 (5.0-9.0); Specific Gravity - Urine <= 1.005 (1.005-1.025); Urine Blood Negative (Negative); Urine Ketones Negative (Negative); Urine Protein Negative (Neg-Trace)
[2024-03-17 19:57] LABS: Acetaminophen LAB < 3 mcg/mL (<30); Alanine Aminotransferase 20 U/L (0-31); Albumin Level 4.8 g/dL (3.5-5.0); Alkaline Phosphatase 67 U/L (39-117); Anion Gap 14 (12-20); Aspartate Amino Transferase 25 U/L (5-31); Bilirubin Total 0.5 mg/dL (0.0-1.0); Blood Urea Nitrogen 9 mg/dL (9-16); Calcium 10.3 mg/dL (8.4-10.2); Carbon Dioxide 20 mmol/L (22-29); Chloride 102 mmol/L (96-108); Creatinine Clr Calc Pharmacy 71.2; Estimated Glomerular Filt Rate > 60; Ethanol < 10 mg/dL; Glucose Random 103 mg/dL (60-115); Potassium 3.5 mmol/L (3.3-5.1); Salicylate < 5.0 mg/dL (15-30); Sodium 132 mmol/L (135-145); Total Protein 7.6 g/dL (6.5-8.0)
[2024-03-17 20:04] LABS: Amphetamine Screen Urine Not Detected (Not Detect); Barbiturates, Urine Not Detected (Not Detect); Benzodiazepines Screen Urine Not Detected (Not Detect); Buprenorphine Scr Not Detected (Not Detect); Cannabinoid Screen Urine POSITIVE (Not Detect); Cocaine Screen Urine Not Detected (Not Detect); Fentanyl, urine Not Detected (Not Detect); Methadone Screen, Urine Not Detected (Not Detect); Opiate Screen Urine Not Detected (Not Detect); Oxycodone Screen Urine Not Detected (Not Detect); Phencyclidine Screen Urine Not Detected (Not Detect)
[2024-03-17 22:43] VITALS: BP 144/96; PULSE 75; RESP 16; TEMP 37.1; O2SAT 99
[2024-03-17 23:23] VITALS: BP 144/96; PULSE 75; RESP 18; TEMP 37.1; O2SAT 99
== END 2024-03-17 23:24 | disposition home or self-care (01) ==
PROVIDERS: Emergency Provider Emergency Medicine
DX: F41.1 Generalized anxiety disorder (principal); R45.851 Suicidal ideations; Z79.899 Other long term (current) drug therapy; Z87.891 Personal history of nicotine dependence; Z51.81 Encounter for therapeutic drug level monitoring
CPT/HCPCS: 36415; 80053; 80143; 80179; 80307; 81003; 85025; 99283; S9485

== ENCOUNTER 2024-08-14 15:04 | Outpatient (AMB) | payer MEDICAID, SELFPAY ==
--- NOTE | 2024-08-14 15:07 | A.OFFVIS_ITS ---
Vital Signs 08/14/24 15:08 Height 5 ft 5 in Weight 170 lb BMI 28.3 Intake Visit Reasons: co testing Dental Treatment Coordinator Required: Yes Dental Treatment Coordinator Language: Music Orchestrator Services: Dental Treatment Coordinator Present (in person) Dental Treatment Coordinator Name: Christine ALMAZAN Information Interpreted: non-clinical & clinical Rotary Envelope Machine Operator: Rotary Envelope Machine Operator Present (Christine ALMAZAN) Accompanied by: Self / Same As Patient Allergies codeine [Codeine] Allergy (Mild, Verified 08/14/24 15:12) RASH Penicillins Allergy (Mild, Verified 08/14/24 15:12) RASH penicillin V Allergy (Unknown, Verified 08/14/24 15:12) hives tape adhesive Allergy (Mild, Uncoded 08/14/24 15:12) rash Post menopausal: Yes HPI Comments Details: Presenting for annual exam. No complaints. Last Pap/HPV was negative in 2022-/HPV positive, biopsy showed NINO 3, the patient is status post LEEP cone with post cone ECC in 02/08 minute negative margin, the patient missed her six-month co testing appointments because she was busy taking care of her who had liver transplant Last Mammogram was BI-RADS 2 in 04/10 Last Colonoscopy was in 05/11, the recommendation was to repeat in 10 years [facility] Medical History Cervical high risk human papillomavirus (HPV) DNA test positive Memory loss Peripheral neuropathy Arthritis IBS (irritable bowel syndrome) Bipolar 1 disorder Depression Anxiety Acid reflux Migraine Asthma Osteoarthritis Fibromyalgia Surgical History History of eyelid surgery H/O dilation and curettage History of bilateral tubal ligation H/O left inguinal hernia repair History of cholecystectomy Social History Household Members Other:: daughter Housing: Apartment Alcohol intake: never Patient Tobacco Use Status: Former Tobacco user Current occupational status: disabled Sexual orientation: Straight/Heterosexual Gender identity: Female Review of Systems Const All systems reviewed & are unremarkable except as noted in HPI and below Card Reports as per HPI Resp Reports as per HPI GI Reports as per HPI and Reports no additional complaints Reports as per HPI Physical Exam Vital Signs: BMI result Body Mass Index 28.3 Const General: cooperative, healthy appearing and comfortable Chest Chest palpation & inspection: normal inspection of the chest and normal palpation of entire chest wall Breast/axilla inspection: normal inspection of the breasts and normal inspection of the axillae Breast/axilla palpation: normal palpation of the breasts, normal palpation of the axillae and no axillary lymphadenopathy Resp Effort & Inspection: normal respiratory effort Auscultation: clear to auscultation bilaterally Percussion: percussion normal Cardio Palpation: normal PMI Rate: regular rate Rhythm: regular rhythm Heart sounds: no murmurs and no rubs Peripheral pulses: Peripheral pulses 2+ throughout GI Inspection: Yes normal to inspection Palpation (GI): Soft to palpation, nontender, no guarding, not rigid and No hepatosplenomegaly present Percussion: Yes normal to percussion Auscultation: normal bowel sounds Rectal Exam - Female: deferred General: Yes bladder normal to palpation External Female Exam: No lesion Speculum Exam - Vagina: normal appearance of the vagina, normal palpation, normal vaginal discharge and not erythematous Speculum Exam - Cervix: normal appearance of the cervix and normal palpation Bimanual exam- vagina & uterus: normal bimanual exam, normal palpation, uterine size normal, bladder normal to palpation, consistency normal and normal palpation Bimanual Exam- Adnexa, other: normal adnexae, no masses and no tenderness Assessment & Plan Assessment & Plan (1) Well woman exam: Comment: NINO 3 status post LEEP cone was negative margins 02/08 Code(s): Z01.419 - Encounter for gynecological examination (general) (routine) without abnormal findings Category: Medical Plan: Co testing done Counseled the patient about the recommended dietary allowance of 1200 mg of Calcium & 600 IU of vitamin D. Mammogram ordered. The patient was instructed to perform monthly self-breast exams and schedule annual exam in a year. All questions answered and the patient verbalized understanding. Orders: Orders MM tomosynthesis screening BI Today Z12.31 - Encounter for screening mammogram for malignant neoplasm of breast Coding Level of Care Code Est Pt Prev Care 40-64y(81864) Diagnoses Well woman exam Z01.419
[2024-08-14 15:08] VITALS: BMI 28.3
--- OUTSIDE RECORDS SUMMARY | 2024-08-14 18:38 | XMS_ITS | Encounter Summary ---
Author Organization [facility] Address [address] [place] [address] [address] [place] [address] Care Team Providers Care Orchid Transplanter Name Role Phone Lety Coronado MD Primary Care Provide r Reason for Visit * Reason Comments Med Refill Encounter Details Date Type Department Care Team (Late st Contact Info) Description 08/23/2022 Refill [facility] [address] [place] [address] [phone] Anette Lopez MD [address] [place] [address] [phone] Chronic rhinitis Social History Tobacco Use Types Packs/Day Years Used Date Smoking Tobacco: Never Smokeless Tobacco: Never Comments Unknown Sex and Gender Information Value Date Recorded Sex Assigned at Female 04/18/2022 10:15 AM EDT Legal Sex Female 10:15 AM EDT Gender Identity Female 04/18/2022 10:15 AM EDT Sexual Orientation Straight 04/18/2022 10 :15 AM EDT documented as of this encounter Plan of Treatment Upcoming Encounters Date Type Department Care Team (Late st Contact Info) Description 09/05/2024 2:45 PM EDT Office Visit [facility] [address] [place] [address] [phone] Lety Coronado MD [address] [place], [place] [phone] documented as of this encounter Visit Diagnoses Diagnosis Chronic rhinitis documented in this encounter Additional Health Concerns Assessment Noted Time PHQ-9 Depression Total Score: 4 07/19/19 23 9:39 AM EST documented as of this encounter Care Teams Orchid Transplanter Relationship Specialty Start Date End Date Lety Coronado MD [address] [place] [address] PCP - General Family Medicine 02/28/18 Agueda Barahona Senior Training And Development RepFarm Equipment Engineer 11/16/23 documented as of this encounter
--- OUTSIDE RECORDS SUMMARY | 2024-08-14 18:38 | XMS_ITS | Encounter Summary ---
Author Organization [facility] Address [address] [place] [address] [address] [place] [address] Care Team Providers Care Honing Machine Set Up Operator Tool Name Role Phone Lety Coronado MD Primary Care Provide r Reason for Visit * Reason Comments Med Change Request Encounter Details Date Type Department Care Team (Late st Contact Info) Description 08/23/2022 Refill [facility] [address] [place] [address] [phone] Anette Lopez MD [address] [place] [address] [phone] Gastroesophageal reflux disease without esophagitis Social History Tobacco Use Types Packs/Day Years [...] Description 09/05/2024 2:45 PM EDT Office Visit [facility] [address] [place] [address] [phone] Lety Coronado MD [address] [place], [place] [phone] documented as of this encounter Visit Diagnoses Diagnosis Gastroesophageal reflux disease without esophagitis Esophageal reflux documented in this encounter Additional Health Concerns Assessment Noted Time PHQ-9 Depression Total Score: 4 07/19/19 23 9:39 AM EST documented as of this encounter Care Teams Honing Machine Set Up Operator Tool Relationship Specialty Start Date End Date Lety Coronado MD [address] [place] [phone] PCP - General Family Medicine 02/28/18 Agueda Barahona Gas Well Drilling ManagerNutrition Services Aide 11/16/23 documented as of this encounter
--- OUTSIDE RECORDS SUMMARY | 2024-08-14 18:39 | XMS_ITS ---
Author Organization [facility] Address [address] [place] [phone] Care Team Providers Care Assembler 1St Shift Name Role Phone Lety Watson M.D. Primary Care Provider Chico Dash Unavailable [phone] REASON FOR VISIT bowel prep MEDICATIONS Medication SIG (Take, Route, Frequency, Duration) Notes Start Date End Date Status MiraLax (colon prep) 17 GM/SCOOP 1 238 Gm bottle mixed with Gatorade or Crystal Light Orally begin at 5:00 p.m. the day before the procedure for 1 day 03/20/2023 Active Dulcolax (colon prep) 5 MG take at 3:00 p.m and 7:00p.m. Orally two tablets twice a day for one day for 1 day 03/20/2023 Active Encounters Encounter Location Date Provider Diagnosis [facility] [address] [facility] [address] [place] [phone] 03/07/2023 Chico Torres PLAN OF TREATMENT Medication Medication Name Sig Start Date Stop Date Notes MiraLax (colon prep) 17 GM/SCOOP 1 238 Gm bottle mixed with Gatorade or Crystal Light Orally begin at 5:00 p.m. the day before the procedure for 1 day 03/20/2023 Dulcolax (colon prep) 5 MG take at 3:00 p.m and 7:00p.m. Orally two tablets twice a day for one day for 1 day 03/20/2023
--- OUTSIDE RECORDS SUMMARY | 2024-08-14 18:39 | XMS_ITS | Encounter Summary ---
Author Organization [email or web address] Address [address] [place] [address] [address] [place] [address] Care Team Providers Care School Lunch Monitor Name Role Phone Lety Coronado MD Primary Care Provide r Reason for Visit * Reason Onset Date Comments Durable Medical Equipment 09/21/2022 Encounter Details Date Type Department Care Team (Late st Contact Info) Description 09/21/2022 Refill [facility] MEDICINE [address] [place] [address] Lety Coronado MD [address] [place] [address] Chronic low back pain, unspecified back pain laterality, unspecified whether sciatica present (Primary Dx) Social History Tobacco Use Types Packs/Day Years Used Date Smoking Tobacco: Never Smokeless Tobacco: Never Comments Unknown Sex and Gender Information Value Date Recorded Sex Assigned at Female 04/18/2022 10:15 AM EDT Legal Sex Female 10:15 AM EDT Gender Identity Female 04/18/2022 10:15 AM EDT Sexual Orientation Straight 04/18/2022 10 :15 AM EDT documented as of this encounter Miscellaneous Notes * Telephone Encounter - Randi Ramirez - 09/21/2022 12:12 PM EDT Please advise on message below for request of hospital bed if you will like to submit again as it was once denied by patient insurance. If you agree please have [place] book patient to initiate process, thank you. * Telephone Encounter - Arsh Lora - 09/21/2022 11:48 AM EDT Tc from pt requesting status on the script for the bed that was requested to provider. Please contact pt at [phone] documented in this encounter Plan of Treatment Upcoming Encounters Date Type Department Care Team (Late st Contact Info) Description 09/05/2024 2:45 PM EDT Office Visit [facility] MEDICINE [address] [place] [address] Lety Coronado MD [address] [place] [address] documented as of this encounter Visit Diagnoses Diagnosis Chronic low back pain, unspecified back pain laterality, unspecified whether sciatica present- Primary documented in this encounter Additional Health Concerns Assessment Noted Time PHQ-9 Depression Total Score: 4 07/19/19 23 9:39 AM EST documented as of this encounter Care Teams School Lunch Monitor Relationship Specialty Start Date End Date Lety Coronado MD [address] [place] [address] PCP - General Family Medicine 02/28/18 Agueda Barahona Dragline OperatorBriquette Molder 11/16/23 documented as of this encounter
--- OUTSIDE RECORDS SUMMARY | 2024-08-14 18:39 | XMS_ITS | Encounter Summary ---
Author Organization [employer] Address [address] [facility] 7t [place] [address] Care Team Providers Care Network Systems Analyst Name Role Phone Lety Coronado MD Primary Care Provide r Reason for Visit * Reason Onset Date Comments Letter for School/Work 04/07/2023 Encounter Details Date Type Department Care Team ([facility] st Contact Info) Description 04/07/2023 Telephone [facility] MEDICINE [address] [place] [address] Lety Coronado MD [address] [place] [address] Letter for School/Work Social History Tobacco Use Types Packs/Day Years Used Date Smoking Tobacco: Former Cigarettes Passive Smoke Exposure: Past Smokeless Tobacco: Never Depression Answer Date Recorded Patient Health Questionnaire-9 Score 8 02/08/2023 Housing Stability Answer Date Recorded What is your housing situation today? I have cookieangela cartagena 04/07/[address] you li ve. Do you have problems with any of the following? None of the above 04/07/2023 Food Insecurity Answer Date Recorded Within the past 12 months, y ou worried that your food would run out before you got money to buy more: Never True 04/07/2023 Within the past 12 months,th e food you bought just didn't last and you didn't have enough money to get more: Never True Transportation Answer Date Recorded In the past 12 months, has l ack of transportation kept you from medical appts, meetings, work or from getting things needed for daily living? Yes, it has kept me from non-medical meetings, work, or getting things that I need;No 03/26/2023 Utilities Answer Date Recorded In the past 12 months, has t he electric, gas, oil or water company threatened to shut off services in your home? 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 documented in this encounter Plan of Treatment Upcoming Encounters Date Type Department Care Team (Late st Contact Info) Description 09/05/2024 2:45 PM EDT Office Visit [facility] MEDICINE [address] [place] [address] Lety Coronado MD [address] [place] [address] documented as of this encounter Visit Diagnoses Not on filedocumented in this encounter Additional Health Concerns Assessment Noted Time PHQ-9 Depression Total Score: 8 02/09/20 2:04 PM EDT documented as of this encounter Care Teams Network Systems Analyst Relationship Specialty Start Date End Date Lety Coronado MD [address] [place], [place] [phone] PCP - General Family Medicine 02/28/18 Agueda Barahona Meat StufferBehavioral Sciences Department Chair 11/16/23 documented as of this encounter
--- OUTSIDE RECORDS SUMMARY | 2024-08-14 18:39 | XMS_ITS | Encounter Summary ---
Author Organization [employer] Address [address] [facility] 7t [place] [address] Care Team Providers Care Water Vessel Captain Name Role Phone Lety Coronado MD Primary Care Provide r Reason for Visit * Reason Comments Med Refill Encounter Details Date Type Department Care Team (Late st Contact Info) Description 05/22/2023 Refill [facility] MEDICINE [address] [place], [place] [phone] Anette Lopez MD [address] [place] [address] Chronic rhinitis Social History Tobacco Use Types [...] Description 09/05/2024 2:45 PM EDT Office Visit [facility] MEDICINE [address] [place] [address] Lety Coronado MD [address] [place] [address] documented as of this encounter Visit Diagnoses Diagnosis Chronic rhinitis documented in this encounter Additional Health Concerns Assessment Noted Time PHQ-9 Depression Total Score: 8 02/09/20 23 2:04 PM EDT documented as of this encounter Care Teams Water Vessel Captain Relationship Specialty Start Date End Date Lety Coronado MD [address] [place] [address] PCP - General Family Medicine 02/28/18 Agueda Barahona Deputy ManagerPug Machine Operator 11/16/23 documented as of this encounter
--- OUTSIDE RECORDS SUMMARY | 2024-08-14 18:39 | XMS_ITS | Patient Health Record ---
Author Organization [facility] Address [address] [place] [address] Care Team Providers Care Organic Lab Worker Name Role Phone Lety Watson M.D. Primary Care Provider Chico Dash Unavailable [phone] ALLERGIES Allergen (clinical drug ingredient) Drug/Non Drug Allergy documented on EMR Reaction Allergy Type Onset Date Status Penicillin Unknown Drug Allergy Active codeine Codeine Sulfate Unknown Drug Allergy A ctive REASON FOR REFERRAL No Information MEDICATIONS Medication SIG (Take, Route, Frequency, Duration) [...] Problem Epigastric abdominal pain (R10.13) Active confirmed 16753828 Problem Rectal bleeding (K62.5) Active confirmed 04873853 Problem Diverticulosis of large intestine without perforation or abscess without bleeding (K57.30) Active confirmed Diverticul ar disease of colon (800876884) Problem Gastroesophageal reflux disease (K21.9) Active confirmed Gastroesophagea l reflux disease (689308443) Problem Abdominal pain, epigastric (R10.13) Active confirmed 77590195 Problem Gastroesophageal reflux disease, esophagitis presence not specified (K21.9) Active confirmed 371418695 Problem Gastritis (K29.70) Active confirmed Gas tritis (5922998) Problem Gastroesophageal reflux disease, unspecified whether esophagitis present (K21.9) Active confirmed [id number] Encounters Encounter Location Date Provider Diagnosis [facility] [address] [facility] [address] [place] [address] 08/08/2024 Chico Torres PLAN OF TREATMENT Pending Test Test Name Order Date LIVER PROFILE 07/06/2022 CBC w DIFF 07/06/2022 Future Test Test Name Order Date COLONOSCOPY 07/31/2014 UPPER GI ENDOSCOPY 07/06/2022 COLONOSCOPY 03/07/2023 Insurance Providers Payer Name Payer Address Payer Phone Subscriber Number Group Number Insured Name Patient Relationship to Insured Coverage Start Date Coverage End Date [place] [facility] [address] [place] [id number] GERARD DIETZ Self - patient is the [...] nerve stimulator for ch ronic pain Denies [place],DM,CVA,renal disease Fibromyalgia Arthritis Negative colonoscopy in 09/2014 [...]
--- OUTSIDE RECORDS SUMMARY | 2024-08-14 18:39 | XMS_ITS | Encounter Summary ---
Author Organization [employer] Address [address] [facility] 7t [place] [address] Care Team Providers Care Silver Recovery Operator Name Role Phone Lety Coronado MD Primary Care Provide r Reason for Visit * Reason Comments Med Refill Encounter Details Date Type Department Care Team (Late st Contact Info) Description 07/18/2024 Refill [facility] MEDICINE [address] [place], [place] [phone] Lety Coronado MD [address] [place] [address] Chronic migraine without aura without status migrainosus, not intractable Social History Tobacco Use Types Packs/Day Years Used Date Smoking Tobacco: Former Cigarettes Passive Smoke Exposure: Past Smokeless Tobacco: Never Depression Answer Date Recorded Patient Health Questionnaire-9 Score 8 02/08/2023 Housing Stability Answer Date Recorded What is your housing situation today? I have cookie cartagena 04/07/[address] you [...] from getting things needed for daily living? No 07/21/2023 Utilities Answer Date Recorded In the past [...] Description 09/05/2024 2:45 PM EDT Office Visit [facility] MEDICINE [address] [place] [address] Lety Coronado MD [address] [place] [address] documented as of this encounter Visit Diagnoses Diagnosis Chronic migraine without aura without status migrainosus, not intractable documented in this encounter Additional Health Concerns Assessment Noted Time PHQ-9 Depression Total Score: 8 02/09/20 23 2:04 PM EDT documented as of this encounter Care Teams Silver Recovery Operator Relationship Specialty Start Date End Date Lety Coronado MD [address] [place] [address] PCP - General Family Medicine 02/28/18 Agueda Barahona Milk Of Lime SlakerJoint Machine Operator 11/16/23 documented as of this encounter
--- OUTSIDE RECORDS SUMMARY | 2024-08-14 18:39 | XMS_ITS | Encounter Summary ---
Author Organization [employer] Address [address] [facility] 7t [place] [address] Care Team Providers Care Enthone Solder Stripper Name Role Phone Lety Coronado MD Primary Care Provide r Encounter Details Date Type Department Care Team ([facility] Contact Info) Description 11/01/2022 Abstract [facility] MEDICINE [address] [place] [address] Lety Coronado MD [address] [place] [phone] Social History Tobacco Use Types Packs/Day Years [...] Encounters Date Type Department Care Team (Late Contact Info) Description 09/05/2024 2:45 PM EDT Office Visit [facility] MEDICINE [address] [place] [address] [phone] Lety Coronado MD [address] [place], [place] [phone] documented as of this encounter Procedures Procedure Name Priority Date/Time Associated Diagnosis Comments COLONOSCOPY Routine 10/16/2014 documented in this encounter Results * Colonoscopy (10/16/2014) Colonoscopy Normal Normal 10/16/2014 Yue Fischer - 10/16/2014 11:32 AM EDT Recommended 5 year follow up ( Dr. Torres) us Historical Provider HEALTH MAINTENANCE Final Result documented in this encounter Visit Diagnoses Not on filedocumented in this encounter Additional Health Concerns Assessment Noted Time PHQ-9 Depression Total Score: 4 07/19/19 23 9:39 AM EST documented as of this encounter Care Teams Enthone Solder Stripper Relationship Specialty Start Date End Date Lety Coronado MD [address] [place] [address] PCP - General Family Medicine 02/28/18 Agueda Barahona Collection AdvisorOracle Database Analyst 11/16/23 documented as of this encounter
--- OUTSIDE RECORDS SUMMARY | 2024-08-14 18:39 | XMS_ITS | Encounter Summary ---
Author Organization [employer] Address [address] [facility] 7t [place] [address] Care Team Providers Care Personalization Specialist Name Role Phone Lety Coronado MD Primary Care Provide r Reason for Visit * Reason Onset Date Comments Appointment Request 03/06/2024 Call Back Request 03/06/2024 Encounter Details Date Type Department Care Team ([facility] st Contact Info) Description 03/06/2024 Telephone [facility] MEDICINE [address] [place] [address] Lety Coronado MD [address] [place], [place] [phone] Appointment Request; Call Back Request Social History Tobacco Use Types Packs/Day Years [...] encounter Miscellaneous Notes * Telephone Encounter - Ulices Perez - 03/06/2024 12:32 PM EDT Tc from patient requesting a appt states is currently in [place] and will be returning in March patient did not provide any information on why the appt is needed requesting a call a back documented in this encounter Plan of Treatment Upcoming Encounters Date Type Department Care Team (Late st Contact Info) Description 09/05/2024 2:45 PM EDT Office Visit [facility] MEDICINE [address] [place] [address] Lety Coronado MD [address] [place] [address] documented as of this encounter Visit Diagnoses Not on filedocumented in this encounter Additional Health Concerns Assessment Noted Time PHQ-9 Depression Total Score: 8 02/09/20 23 2:04 PM EDT documented as of this encounter Care Teams Personalization Specialist Relationship Specialty Start Date End Date Lety Coronado MD [address] [place] [address] PCP - General Family Medicine 02/28/18 Agueda Barahona School Speech Language PathologistIntensive Care Unit Nurse 11/16/23 documented as of this encounter
--- OUTSIDE RECORDS SUMMARY | 2024-08-14 18:39 | XMS_ITS ---
Author Organization [facility] Address [address] [place] [address] Care Team Providers Care Part Time Receptionist Name Role Phone Lety Watson M.D. Primary Care Provider Chico Dash Unavailable [phone] REASON FOR VISIT please take out old colonoscopy alert. Encounters Encounter Location Date Provider Diagnosis [facility] [address] [place] [phone] 08/08/2024 Chico Torres PLAN OF TREATMENT No Information
--- OUTSIDE RECORDS SUMMARY | 2024-08-14 18:39 | XMS_ITS | Clinical Summary ---
Author Organization [employer] Address [address] [place] [address] 7[address] [place] [address] Care Team Providers Care Food Truck Caterer Name Role Phone Lety Coronado MD Primary Care Provide r Allergies Active Allergy Reactions Criticality Noted Date Comments Codeine Unknown 06/15/2010 Erythromycin 06/15/2010 Morphine 06/15/2010 Penicillins Unknown 06/15/2010 Medications mirtazapine (Remeron) 45 MG tablet Take 1 tablet (45 mg) by mouth at bedtime. 90 tablet 09/22/19 23 Active zolpidem (Ambien) 10 MG tablet TOME JJ TABLETA TODOS LOS D AL ACOSTARSE CUANDO SEA NECESARIO FOR INSOMNIA 30 tablet 09/22/19 23 Active fluticasone (Flonase) 50 MCG/ACT nasal sprayIndication s:Chronic rhinitis INHALE 2 SPRAY BY INTRANASAL ROUTE EVERY DAY IN EACH NOSTRIL NEEDED 48 mL 03/10/20 23 Active albuterol (Ventolin HFA) 108 (90 Base) MCG/ACT inhalerIndicati ons:Mild intermittent asthma without complication TOME DOS INHALACIONES POR VIA ORAL CADA CUATRO A SEIS HORAS CUANDO SEA NECESARIO 18 g 1 12/20/19 24 Active omeprazole (PriLOSEC) [address] capsuleIndicati ons:Gastroesoph ageal reflux disease without esophagitis TAKE 1 CAPSULE BY MOUTH EVERY DAY 90 capsule 1 12/20/19 24 Active lidocaine (Lidoderm) 5 % patchIndication s:Back pain, unspecified back location, unspecified back pain laterality, unspecified chronicity APLIQUAR UN PARCHE A DIARIO Y DEJAR HASTA 12 HORAS AL LUNA 30 patch 3 12/20/19 24 Active tiZANidine (Zanaflex) 4 MG tabletIndicatio ns:Chronic bilateral low back pain, unspecified whether sciatica present,Cervica l disc disease Take 1 tablet (4 mg) by mouth every 8 (eight) hours if needed for muscle spasms for up to 20 days. 30 tablet 1 12/20/19 24 Active famotidine (Pepcid) 20 MG tabletIndicatio ns:Gastroesopha geal reflux disease without esophagitis TAKE 1 TABLET BY MOUTH TWICE A DAY 180 tablet 04/16/20 24 Active amitriptyline (Elavil) 100 MG tabletIndicatio ns:Chronic migraine without aura without status migrainosus, not intractable TAKE 1 TABLET BY MOUTH AT BEDTIME 90 tablet 06/03/20 24 Active SUMAtriptan (Imitrex) 100 MG tabletIndicatio ns:Chronic migraine without aura without status migrainosus, not intractable TAKE 1 TABLET BY MOUTH AT ONSET OF HEADACHE & EVERY 4 HOURS NEEDED UP TO TWICE A DAY FOR 30 DAYS 9 tablet 1 07/18/19 25 Active SUMAtriptan (Imitrex) 100 MG tabletIndicatio ns:Chronic migraine without aura without status migrainosus, not intractable TAKE 1 TABLET BY MOUTH AT ONSET OF HEADACHE & EVERY 4 HOURS NEEDED UP TO TWICE A DAY FOR 30 DAYS 9 tablet 1 02/16/20 24 2024 Discontinued Active Problems Problem Noted Date Diagnosed Date Neck pain 07/21/2023 Assessment & Plan (07/21/2023 4:35 PM EST): Apply heat on affected area cyclobenzaprine (use as prescribed) Acetaminophen PRN Rectal bleeding 04/25/2023 Assessment & Plan (04/25/2023 2:18 PM EST): Do not mis GI/colonoscopy appointment Cervical cancer 04/25/2023 Assessment & Plan (04/25/2023 2:18 PM EST): Continue to follow with UTILIZATION REVIEW SPECIALIST patient will call for a sooner appointment Coccygeal pain 02/08/2023 Assessment & Plan (04/25/2023 2:18 PM EST): Follow up with specialist Assessment & Plan (02/08/2023 2:31 PM EDT): Improved continue with acetaminophen PRN an donut pillow Influenza-like symptoms 01/24/2023 Seasonal allergies 01/24/2023 Stress incontinence of urine 01/24/2023 Suspected COVID-19 virus infection 01/24/2023 Acute coccygeal pain 01/24/2023 Assessment & Plan (01/24/2023 9:59 AM EDT): Pt here for a sick visit,patient reports she fell yesterday carrying a jar in her home and fell onto the floor. she did not hit her head and had no LOC. Pain is escribed above her coccyx. Painful to sit or stand. On exam there is no ecchymosis on her sacrum, pelvic area, lumbar spine full ROM although painful, no tenderness to palpation on either greater trochanters, hips full ROM. Pt exquisitely tender to palpation over her coccyx Etiology ? Coccygeal contusion vs fracture Plan: x-rays of her LS spine, pelvis and coccyx. Pt is allergic to codeine ort Morphoine and even tramadol animal caregiver her itching. She declines NSAIDS due to severe GERD. Plan: Donut sit, Acetaminophen 1000 mg po q 8 hrs PRN Follow up with PCP after stat x-rays asked to come back if symptoms do not improve or worsen Cervical high risk HPV (human papillomavirus) te st positive 12/01/2022 Battery end of life of spinal cord stimulator Assessment & Plan (02/08/2023 2:32 PM EDT): Referral information will be mail to patient Recurrent UTI 11/24/2022 Cervical cancer screening 11/24/2022 Chronic gastritis 07/19/2022 Depressive disorder 07/19/2022 Assessment & Plan (07/19/2022 10:48 AM EST): Pt currently seeing psychiatry and [facility]. Continue Ambien, unclear if she is taking any other medications, pt did not bring other medications today. Chronic back pain 07/19/2022 Assessment & Plan (12/20/2023 4:49 PM EDT): C/w acetaminophen PRN and tizinadine Gabapentin did not help so I will discontinue Assessment & Plan (11/15/2023 4:42 PM EDT): Apply heat on affected area Flexeril was discontinue instead I started her on tizanidine Acetaminophen arthritis PRN Gabapentin 300mg Q 8hrs C/w lidocaine patch It was also advise to try acupuncture Varicose veins of lower extremity 07/19/2022 Cervical disc disease 07/19/2022 Assessment & Plan (07/19/2022 10:52 AM EST): She has significant limitation to lift up objets and sometimes prepare herself. Take Tramadol PRN. Recommended acupuncture May needs assistance for tranfers and occasionally to get out of bed. Unfortunately pt disposed old hospital bed. FU with PCP. Will FU with insurance regarding prescription for a new hospital bed. Encounter for preventive care 07/19/2022 Assessment & Plan (07/21/2023 4:36 PM EST): See HPI Assessment & Plan (07/19/2022 1:02 PM EST): Discussed with patient re increase fresh fruit and vegetable intake. Counseled re moderate exercise as tolerated, up to 20min/d Patient feels safe at home. PAP smear overdue, will schedule pap smear. Mammogram up to date, next one due on 02/2023 Eye exam referred to optometry. CRC screen up to date, next one due on 2025. Lipids/FBS order lipid profile and FU with PCP in 3 months. Vaccinations recommended Covid booster today, she agreed with plan of care. Other IZ up to date. Radial styloid tenosynovitis 03/02/2018 Pain in wrist 11/15/2017 Mild intermittent asthma 08/22/2017 Assessment & Plan (02/08/2023 2:30 PM EDT): Controlled continue with same interventions Gastroesophageal reflux disease without esophagi tis 06/30/2017 Assessment & Plan (12/20/2023 4:48 PM EDT): I advise patient to avoid NSAIDs, spicy and acid food, I advise to eat at the same time every day, I advise to elevate the head of the bed and take medications as prescribe Assessment & Plan (02/08/2023 2:30 PM EDT): I advise patient to avoid NSAIDs, spicy and acid food, I advise to eat at the same time every day, I advise to elevate the head of the bed and take medications as prescribe Assessment & Plan (07/19/2022 10:49 AM EST): Has EGD pending next month. Continue Omeprazole PRN. Irritable bowel syndrome 06/30/2017 Assessment & Plan (07/19/2022 10:49 AM EST): Doing well with dietary modifications. Needs Linzess PRN. Migraine 06/30/2017 Assessment & Plan (12/20/2023 4:49 PM EDT): I advise to avoid migraine triggers like red wine, chocolate, cheese, strong perfumes Assessment & Plan (02/08/2023 2:30 PM EDT): Controlled continue to follow with neurology Assessment & Plan (07/19/2022 10:50 AM EST): Doing better on higher doses of amitriptylene Reminded to rock picker prescription for Imitrex PRN Normal recent MRI of the brain. Asthma 06/30/2017 Assessment & Plan (12/20/2023 4:48 PM EDT): Fairly control Patient educated to avoid asthma triggers Albuterol inhaler renewed Benzodiazepine dependence, continuous 06/30/2017 Urinary incontinence 06/30/2017 Urinary tract infectious disease 06/30/2017 Encounters Date Type Department Care Team Description 07/18/2024 Refill [facility] [address] [place] [phone] Lety Coronado MD Chronic migraine without aura without status migrainosus, not intractable 07/03/2024 Telephone [facility] [address] [place] [address] Lety Coronado MD [facility] [employer] (Chux disposable underpad case and bag/Bladder control case and pads) 06/02/2024 Refill [facility] [address] [place] [phone] Lety Coronado MD Chronic migraine without aura without status migrainosus, not intractable from Last 3 Months Immunizations Name Administration Dates Next Due Hep B, adult 09/24/2007,04/26/2007,03/26/2007 Influenza Injectable Quadriv alant Preservative Free IIV4 MDCK 02/24/2022 Influenza injectable quadriv alent IIV4 with preservative 04/27/2018,04/07/2015 Influenza injectable quadriv alent preservative free 04/25/2023,03/02/2021,04/29/2020,2018 Influenza, IIV3, injectable 03/19/2022, 4,05/05/2009 Influenza, Split (incl. es fied surface antigen) 03/15/2013,05/24/2012 Pfizer Covid-19 Vaccine 12+ Bivalent 07/19/2022 TD (adult), 2 Lf tetanus tox oid, preservative free, adsorbed 02/21/2008 Tdap 11/15/2017 Zoster, Recombinant 07/21/2023,04/29/2020 Social History Tobacco Use Types Packs/Day Years Used Date Smoking Tobacco: Former Cigarettes Passive Smoke Exposure: Past Smokeless Tobacco: Never Tobacco Cessation:Counseling Given: Not Answered Depression Answer Date Recorded Patient Health Questionnaire-9 [...] Orientation Straight 04/18/2022 10 :15 AM EDT Last Filed Vital Signs Vital Sign Reading Time Taken Comments Blood Pressure 96/60 11/15/2023 3:25 PM EDT Pulse 72 11/15/2023 3:25 PM EDT Temperature 36.5 ??C (97.7 ??F) 11/15/2023 3:25 PM ED T Respiratory Rate 18 11/15/2023 3:25 PM EDT Oxygen Saturation 100% 11/15/2023 3:25 PM EDT Inhaled Oxygen Concentration - - Weight 78.5 kg (173 lb) 11/15/2023 3:25 PM EDT Height 165.1 cm (5' 5 ) 11/15/2023 3:25 PM EDT Body Mass Index 28.79 11/15/2023 3:25 PM EDT Plan of Treatment Upcoming Encounters Date Type Department Care Team (Late st Contact Info) Description 09/05/2024 2:45 PM EDT Office Visit [facility] [address] [place] [phone] Lety Coronado MD [address] [place] [address] Health Maintenance Due Date Last Done Comments CT Colonography 1966 FIT DNA/Cologuard 1966 FIT 1966 FOBT 1966 HIV Screening 1966 Sigmoidoscopy 1966 Alcohol/Substance Use Screening 1978 Hepatitis C Screening 02/08/1984 Pneumococcal Vaccine: 50+ Years (1 of 2 - PCV) 1985 Colonoscopy 10/17/2019 10/16/2014 Colorectal Cancer Screening 10/17/2019 Cervical Cancer Screening 11/25/2023 HPV/Cotest 11/25/2023 11/24/2022, 06/0 01/2023, 10/03/2018 Pap Smear 11/25/2023 11/24/2022, 06/0 01/2023, 10/03/2018 Depression Screening 02/09/2024 02/08/2023, 02/09/20 23 COVID-19 Vaccine ( season) 2024 07/19/2022, 05/27/2021, 09/14/2020 Influenza Vaccine (#1) 2024 , 03/19/2022, 02/24/2022, Additional history exists Mammogram 04/13/2024 04/13/2023, 02/18, 03/15/2022, Additional history exists SDOH Screening 07/21/2024 07/21/2023 Tobacco Screening 11/14/2024 11/15/2023 DTaP/Tdap/Td Vaccines (2 - Td or Tdap) 11/16/2027 11/15/2017, 02/21/2008 RSV Patients and Patients Aged 60 years or older (1 - 1-dose 75+ series) 2041 Hepatitis B Vaccines Completed 09/24/2007, 04/26/2007, 03/26/2007 Zoster Vaccines Completed 07/21/2023, 04/29/2020 HIB Vaccines Aged Out No longer eligi ble based on patient's age to complete this topic HPV Vaccines Aged Out No longer eligi ble based on patient's age to complete this topic Hepatitis A Vaccines Aged Out No long er eligible based on patient's age to complete this topic IPV Vaccines Aged Out No longer eligi ble based on patient's age to complete this topic Meningococcal Vaccine Aged Out No sanjuana vin eligible based on patient's age to complete this topic RSV under 20 months Aged Out No longe r eligible based on patient's age to complete this topic Rotavirus Vaccines Aged Out No longer eligible based on patient's age to complete this topic Procedures Procedure Name Priority Date/Time Associated Diagnosis Comments BI MAMMOGRAM SCREENING TOMOSYNTHESIS BILATERAL Routine 04/13/2023 2:50 PM EDT HPV GENOTYPES 16,18/45 Routine 11:09 AM EDT IMAGE-GUIDED PAP W/AGE BASED SCR,W/CT/NG/TRICH Routine 11/24/2022 11:09 AM EDT Cervical cancer screening HM COLONOSCOPY Routine 10/16/2014 from Last 3 Months or Most Recently Relevant to Health Maintenance Results * BI Mammogram Screening Tomosynthesis Bilateral (04/13/2023 2:50 PM EDT) Anatomical Region Laterality Modality Breast Bilateral Mammography 04/13/2023 2:50 PM EDT Narrative 05/01/2023 6:22 AM EST ? [facility] ? [address] ?[place] [address] ? Mammography Report ? Signed ? Patient: Hernandez,Cami ?MR#: [id number] ?? 7 ? : 1965 ?Acct:[id number] ? Age/Sex: 58 / F ?ADM Date: //23 ? Loc: HO.MAMMO ? Attending Dr: Lety Guaman MD ? Ordering Physician: Lety Coronado MD ?Results: ?? 2Benign Findings ? Date of Service: 04/13/23 ?Follow Up: 1 Year From Orig ?? inal Mammogram ? Procedure(s): MM tomosynthesis screening BI ?? Accession Number(s): [id number] ? cc: Lety Coronado MD ? EXAMINATION: ?? MM SCREENING DIGITAL BREAST TOMOSYNTHESIS, BILATERAL ? CLINICAL INFORMATION: ? Screening. Asymptomatic. ? COMPARISON: ?? Mammography: This study is compared with prior exams dating back to ?? 2018. ? TECHNIQUE: ?? Digital breast tomosynthesis is performed in both the craniocaudal and ?? mediolateral oblique views along with computer-aided detection (CAD). ?? Synthesized 2D images are generated from the tomosynthesis. ? FINDINGS: ?? There are scattered areas of fibroglandular density (ACR BI-RADS breast ?? composition Category b). ? There are no significant masses, abnormal calcifications, or other ?? abnormalities. ? There is tissue marker present in the right breast from prior benign ?? percutaneous biopsy. ? There are benign calcifications in the upper outer quadrant of the left ?? breast. ? MM/MM tomosynthesis screening BI ?? IMPRESSION: ?? No mammographic evidence of malignancy. ? ASSESSMENT: ? BI-RADS BI-RADS 2 - Benign Findings ? RECOMMENDATION: ?? Routine annual mammography screening. ? 1 year F/U ? This examination should not preclude the clinical evaluation of a ?? suspicious palpable abnormality. ? This patient's information was entered into a reminder system with a ?? target due date for their next mammogram. ? Dictated By: ?Ava Newton MD ? Signed By: ?<Electronically signed by Ava Newton MD in OV> ? 05/01/2318 ? DD/DT: 04/13/ 1450 ? TD/TT: ? Follow Up Manager: ? Procedure Note Andria, Image - 05/01/2023 [facility] [place] [address] Mammography Report Signed Patient: Cami HernandezMR#: [id number] 7 : 1965Acct:[id number] Age/Sex: 58 / FADM Date: 04/13/23 Loc: HO.MAMMO Attending Dr: Lety Guaman MD Ordering Physician: Lety Coronado MDResults: 2Benign Findings Date of Service: 04/13/23Follow Up: 1 Year From Orig inal Mammogram Procedure(s): MM tomosynthesis screening BI Accession Number(s): [id number] cc: Lety Coronado MD EXAMINATION: MM SCREENING DIGITAL BREAST TOMOSYNTHESIS, BILATERAL CLINICAL INFORMATION: Screening. Asymptomatic. COMPARISON: Mammography: This study is compared with prior exams dating back to 2018. TECHNIQUE: Digital breast tomosynthesis is performed in both the craniocaudal and mediolateral oblique views along with computer-aided detection (CAD). Synthesized 2D images are generated from the tomosynthesis. FINDINGS: There are scattered areas of fibroglandular density (ACR BI-RADS breast composition Category b). There are no significant masses, abnormal calcifications, or other abnormalities. There is tissue marker present in the right breast from prior benign percutaneous biopsy. There are benign calcifications in the upper outer quadrant of the left breast. MM/MM tomosynthesis screening BI IMPRESSION: No mammographic evidence of malignancy. ASSESSMENT: BI-RADS BI-RADS 2 - Benign Findings RECOMMENDATION: Routine annual mammography screening. 1 year F/U This examination should not preclude the clinical evaluation of a suspicious palpable abnormality. This patient's information was entered into a reminder system with a target due date for their next mammogram. Dictated By: Ava Newton MD Signed By: <Electronically signed by Ava Newton MD in OV> 05/01/23 0618 DD/ 1450 TD/TT: Follow Up Manager: us Lety Guaman MD IMG BI PROCEDURES Fin al Result * (ABNORMAL) Image-Guided Pap with Age-Based Screening??with CT/NG,??Trichomonas (11/24/2022 11:09 AMEDT) Comment [facility] Comment: This order for age-based cervical cancer and STI screening follows ACOG guidelines(PB 168, 140, WWI097). See individual assays for performing site location. Clinical Information: 57 Y/O F [facility] LMP: NONE GIVEN [facility] Prev. PAP: NONE GIVEN [facility] Prev. BX: NONE GIVEN [facility] SOURCE: None given [facility] Statement Of Adequacy: SATISFACTORY FOR EVALUATION [facility] Interpretation/Re sult: [facility] Comment: Negative for intraepithelial lesion or malignancy. Atrophic pattern; predominantly parabasal cells COMMENT: This Pap test has been evaluated with computer assisted technology. [facility] Professional Engineer: [employer] Comment: [place], CT(ASCP) CT screening location: [address] ??[id number] Review Professional Engineer: [employer] Comment: MSM, CT(ASCP) CT screening location: [address] ??[address] (Always Message) [facility] [employer] Comment: EXPLANATORY NOTE: The Pap is a screening test for cervical cancer. It is not a diagnostic test and is subject to false negative and false positive results. It is most reliable when a satisfactory sample, regularly obtained, is submitted with relevant clinical findings and history, and when the Pap result is evaluated along with historic and current clinical information. HPV nRNA E6/E7 Detected(A) Not Detected [facility] Comment: Methodology: Group Sales Representative-Mediated Amplification This assay detects E6/E7 viral messenger RNA (mRNA) from 14 high-risk HPV types (16,18,31,33,35,39,45,51,52,56,58,59,66,68). Cervical sources are required for HPV testing. If a vaginal source from a patient who has had a total hysterectomy with removal of cervix was submitted, please contact the testing laboratory for alternative testing options. For additional information, please refer to http://education.[employer]/faq/ARN726z3 (This link if provided for information/ educational purposes only.) Chlamydia trachomatis RNA, TMA, Urogenital NOT DETECTED NOT DETECTED [facility] [employer] Neisseria gonorrhoeae RNA, TMA, Urogenital NOT DETECTED NOT DETECTED [facility] [employer] (Always Message) Que [facility] [employer] Comment: The analytical performance characteristics of this assay, when used to test SurePath(TM) specimens have been determined by [facility]. The modifications have not been cleared or approved by the FDA. This assay has been validated pursuant to the CLIA regulations and is used for clinical purposes. For additional information, please refer to https://[employer]/faq/OFW378 (This link is being provided for information/ educational purposes only.) Trichomonas vaginalis, QL, TMA, PAP Vial NOT DETECTED NOT DETECTED [facility] Comment: The analytical performance characteristics of this assay have been determined by [facility]. The modifications have not been cleared or approved by the FDA. This assay has been validated pursuant to the CLIA regulations and is used for clinical purposes. For additional information, please refer to http://[employer]/ faq/Trichomonastma (This link is being provided for information/ educational purposes only.) Swab 11/24/2022 11:0 9 AM EDT 11/25/2022 9:31 AM EDT Lety Guaman MD LAB CYTOLOGY ORDERABL ES Final Result [facility] [address], [place] [address] [facility] [employer] [address] [place] [address] * HPV Genotypes 16,18/45 (11/24/2022 11:09 AM EDT) HPV 16 RNA NOT DETECTED NOT DETECTED [facility] [employer] HPV 18/45 RNA NOT DETECTED NOT DETECTED [facility] [employer] Comment: Methodology: Group Sales Representative Mediated Amplification Cervical sources are required for HPV testing. If a vaginal source from a patient who has had a total hysterectomy with removal of cervix was submitted, please contact the testing laboratory for alternative testing options. 11/24/2022 11:0 9 AM EDT 11/25/2022 9:31 AM EDT Lety Guaman MD LAB BLOOD ORDERABLES Final Result [facility] [address], [place] [address] [facility] [address] [place] [address] * Colonoscopy (10/16/2014) Colonoscopy Normal Normal 10/16/2014 Narrative Yue Olea - 10/16/2014 11:32 AM EDT Recommended 5 year follow up ( Dr. Torres) Historical Provider HEALTH MAINTENANCE Final Result from Last 3 Months or Most Recently Relevant to Health Maintenance Insurance C3 Care Teams Food Truck Caterer Relationship Specialty Start Date End Date Lety Coronado MD [address] [place] [address] [phone] PCP - General Family Medicine 02/28/18 Agueda Barahona Heel PackerFresh Foods Technician 11/16/23
--- OUTSIDE RECORDS SUMMARY | 2024-08-14 18:39 | XMS_ITS | Encounter Summary ---
Author Organization [employer] Address [address] [place] [address] Care Team Providers Care Computer Numerical Control Operator Name Role Phone Lety Coronado MD Primary Care Provide r Reason for Visit * Reason Onset Date Comments Med Refill 09/21/2022 Encounter Details Date Type Department Care Team (Late st Contact Info) Description 09/21/[address] [facility] [address] [place] [address] Lety Coronado MD [address] [place] [address] Med Refill Social History Tobacco Use Types Packs/Day Years [...] encounter Miscellaneous Notes * Telephone Encounter - Arsh Lora - 09/21/2022 11:46 AM EDT Tc from pt requesting med refill on Tramadol 50 mg tablet Please sent to [id number] - [place] - [address] [place] [address] documented in this encounter Plan of Treatment Upcoming Encounters Date Type Department Care Team (Late st Contact Info) Description 09/05/2024 2:45 PM EDT Office Visit [facility] [address] [place] [address] Lety Coronado MD [address] [place] [address] documented as of this encounter Visit Diagnoses Not on filedocumented in this encounter Additional Health Concerns Assessment Noted Time PHQ-9 Depression Total Score: 4 07/19/19 23 9:39 AM EST documented as of this encounter Care Teams Computer Numerical Control Operator Relationship Specialty Start Date End Date Lety Coronado MD [address] [place], [place] [phone] PCP - General Family Medicine 02/28/18 Agueda Barahona Billet AssemblerAccordion Repairer 11/16/23 documented as of this encounter
--- OUTSIDE RECORDS SUMMARY | 2024-08-14 18:39 | XMS_ITS | Encounter Summary ---
Author Organization [employer] Address [address] [facility] 7t [place] [address] Care Team Providers Care Garment Manufacturing Supervisor Name Role Phone Lety Coronado MD Primary Care Provide r Reason for Visit * Reason Onset Date Comments Letter for School/Work 12/11/2023 Encounter Details Date Type Department Care Team ([facility] st Contact Info) Description 12/11/2023 Telephone [facility] MEDICINE [address] [place], [place] [phone] Lety Coronado MD [address] [place] [address] Letter for School/Work Social History Tobacco Use [...] encounter Miscellaneous Notes * Telephone Encounter - Eda Drew - 12/27/2023 1:53 PM EDT LVM for patient to return my call LVM to Drivematic Machine Operator-- patient will need to come in to put in request. * Telephone Encounter - Shanell Joiner - 12/11/2023 10:41 AM EDT Tc from [place] with N (childcare director) states pt is requesting a letter stating pets in home is for emotional support due to management requesting a letter to keep pets. documented in this encounter Plan of Treatment Upcoming Encounters Date Type Department Care Team (Late st Contact Info) Description 09/05/2024 2:45 PM EDT Office Visit [facility] MEDICINE [address] [place] [address] Lety Coronado MD [address] [place] [address] documented as of this encounter Visit Diagnoses Not on filedocumented in this encounter Additional Health Concerns Assessment Noted Time PHQ-9 Depression Total Score: 8 02/09/20 2:04 PM EDT documented as of this encounter Care Teams Garment Manufacturing Supervisor Relationship Specialty Start Date End Date Lety Coronado MD [address] [place] [address] PCP - General Family Medicine 9/12/18 Agueda Barahona Custom Garment DesignerBlasting Gang Miner 11/16/23 documented as of this encounter
--- OUTSIDE RECORDS SUMMARY | 2024-08-14 18:39 | XMS_ITS | Encounter Summary ---
Author Organization [employer] Address [address] [place] [address] 7t [place] [address] Care Team Providers Care Multi Skilled Operator Name Role Phone Lety Coronado MD Primary Care Provide r Encounter Details Date Type Department Care Team (Late st Contact Info) Description 12/01/2022 Orders Only [facility] MEDICINE [address] [place] [address] Tiana Obando, RN [address] [place], [place] [phone] Social History Tobacco Use Types Packs/Day Years Used Date Smoking Tobacco: Never Passive Smoke Exposure: Never Smokeless Tobacco: Never Comments Unknown Sex and Gender Information Value Date Recorded Sex Assigned at Female 04/18/2022 10:15 AM EDT Legal Sex Female 10:15 AM EDT Gender Identity Female 04/18/2022 10:15 AM EDT Sexual Orientation Straight 04/18/2022 10 :15 AM EDT COVID-19 Exposure Response Date Recorded In the last 10 days, have yo u been in contact with someone who was confirmed or suspected to have Coronavirus/COVID-19? No / Unsure 11/24/2022 10:03 AM EDT documented as of this encounter Plan of Treatment Upcoming Encounters Date Type Department Care Team (Late st Contact Info) Description 09/05/2024 2:45 PM EDT Office Visit [facility] MEDICINE [address] [place] [address] Lety Coronado MD [address] [place] [address] documented as of this encounter Visit Diagnoses Not on filedocumented in this encounter Additional Health Concerns Assessment Noted Time PHQ-9 Depression Total Score: 4 07/19/19 23 9:39 AM EST documented as of this encounter Care Teams Multi Skilled Operator Relationship Specialty Start Date End Date Lety Coronado MD [address] [place] [address] PCP - General Family Medicine 02/28/18 Agueda Barahona Web Production ManagerEcho Vascular Tech 11/16/23 documented as of this encounter
--- OUTSIDE RECORDS SUMMARY | 2024-08-14 18:40 | XMS_ITS ---
Author Organization [facility] Address [address] [place] [address] Care Team Providers Care Guzzler Builder Name Role Phone Lety Watson M.D. Primary Care Provider Ch[place] Dash Unavailable [phone] REASON FOR VISIT rectal bleeding PROBLEMS Problem Type ICD Code Onset Dates Problem Status W/U Status Risk SNOMED Code Notes Problem Diverticulosis of large intestine without perforation or abscess without bleeding (K57.30) Active confirmed Diverticul ar disease of colon (333225894) Encounters Encounter Location Date Provider Diagnosis [facility] Outpatient [address] [place] [address] [phone] 05/10/2023 Chico Torres Diverticulosis of large intestine without perforation or abscess without bleeding K57.30 ; Other hemorrhoids K64.8 and Hematochezia K92.1 ASSESSMENTS Encounter Date Diagnosis Assessment Notes Treatment Notes Treatment Clinical Notes 05/10/2023 Diverticulosis of large intestine without perforation or abscess without bleeding (ICD-10 - K57.30) 05/10/2023 Other hemorrhoids (ICD-10 - K64.8) 05/10/2023 Hematochezia (ICD-10 - K92.1) PLAN OF TREATMENT No Information
== END 2024-08-14 15:50 | disposition home or self-care (01) ==
LOC: HO.HWS 15:04
PROVIDERS: Visit Provider Obstetrics & Gynecology
DX: Z01.419 Encounter for gynecological examination (general) (routine) without abnormal findings (principal)
CPT/HCPCS: 99396; 99459

== ENCOUNTER 2024-08-14 15:04 | Outpatient (REF) | payer MEDICAID, SELFPAY ==
--- OUTSIDE RECORDS SUMMARY | 2024-08-14 19:21 | XMS_ITS | Encounter Summary ---
Author Organization [employer] [facility] Address [address] [place] [address] 7t [place] [address] Care Team Providers Care Computer Networking Instructor Name Role Phone Lety Coronado MD Primary Care Provide r Reason for Visit * Reason Comments Med Refill Encounter Details Date Type Department Care Team (Late st Contact Info) Description 08/23/2022 Refill [facility] [address] [place] [address] [phone] Anette Lopez MD [address] [place] [address] [phone] Chronic rhinitis Social History Tobacco Use Types [...] Description 09/05/2024 2:45 PM EDT Office Visit [facility] [address] [place] [address] [phone] Lety Coronado MD [address] [place], [place] [phone] documented as of this encounter Visit Diagnoses Diagnosis Chronic rhinitis documented in this encounter Additional Health Concerns Assessment Noted Time PHQ-9 Depression Total Score: 4 07/19/19 23 9:39 AM EST documented as of this encounter Care Teams Computer Networking Instructor Relationship Specialty Start Date End Date Lety Coronado MD [address] [place] [address] PCP - General Family Medicine 02/28/18 Agueda Barahona Hvac Service TechStudent Liaison Officer 11/16/23 documented as of this encounter
--- OUTSIDE RECORDS SUMMARY | 2024-08-14 19:21 | XMS_ITS | Encounter Summary ---
Author Organization [employer] Address [address] [facility] 7t [place] [address] Care Team Providers Care Credit Collections Analyst Name Role Phone Lety Coronado MD Primary Care Provide r Reason for Visit * Reason Onset Date Comments Appointment Request 03/06/2024 Call Back Request 03/06/2024 Encounter Details Date Type Department Care Team ([facility] st Contact Info) Description 03/06/2024 Telephone [facility] MEDICINE [address] [place] [address] Lety Coronado MD [address] [place], [place] [phone] Appointment Request; Call Back Request Social History [...] requesting a appt states is currently in [place] and will be returning in March patient did not provide any information on why the appt is needed requesting a call a back documented in this encounter Plan of Treatment Upcoming Encounters Date Type Department Care Team (Late st Contact Info) Description 09/05/2024 2:45 PM EDT Office Visit [facility] MEDICINE [address] [place] [address] Lety Coronado MD [address] [place] [address] documented as of this encounter Visit Diagnoses Not on filedocumented in this encounter Additional Health Concerns Assessment Noted Time PHQ-9 Depression Total Score: 8 02/09/20 23 2:04 PM EDT documented as of this encounter Care Teams Credit Collections Analyst Relationship Specialty Start Date End Date Lety Coronado MD [address] [place] [address] PCP - General Family Medicine 02/28/18 Agueda Barahona Editing Computer PublisherApplications Engineer 11/16/23 documented as of this encounter
--- OUTSIDE RECORDS SUMMARY | 2024-08-14 19:21 | XMS_ITS | Encounter Summary ---
Author Organization [employer] Address [address] [facility] 7t [place] [address] Care Team Providers Care Application Systems Administrator Name Role Phone Lety Coronado MD Primary Care Provide r Reason for Visit * Reason Onset Date Comments Letter for School/Work 04/07/2023 Encounter Details Date Type Department Care Team ([facility] st Contact Info) Description 04/07/[address] 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 documented in this encounter Plan of Treatment Upcoming Encounters Date Type Department Care Team (Late st Contact Info) Description 09/05/2024 2:45 PM EDT Office Visit [facility] MEDICINE [address] [place] [address] Lety Coronado MD [address] [place] [address] documented as of this encounter Visit Diagnoses Not on filedocumented in this encounter Additional Health Concerns Assessment Noted Time PHQ-9 Depression Total Score: 8 02/09/20 2:04 PM EDT documented as of this encounter Care Teams Application Systems Administrator Relationship Specialty Start Date End Date Lety Coronado MD [address] [place], [place] [phone] PCP - General Family Medicine 02/28/18 Agueda Barahona Social ProfessionalsScleroscope Tester 11/16/23 documented as of this encounter
--- OUTSIDE RECORDS SUMMARY | 2024-08-14 19:21 | XMS_ITS | Encounter Summary ---
Author Organization [employer] Address [address] [place] [address] 7t [place] [address] Care Team Providers Care Injection Molding Process Technician Name Role Phone Lety Coronado MD Primary Care Provide r Encounter Details Date Type Department Care Team (Late st Contact Info) Description 12/01/2022 Orders Only [facility] MEDICINE [address] [place] [address] Tiana Obando, RN [address] [place], [place] [phone] Social History Tobacco Use Types Packs/Day Years [...] 2:45 PM EDT Office Visit [facility] MEDICINE [address] [place] [address] Lety Coronado MD [address] [place] [address] documented as of this encounter Visit Diagnoses Not on filedocumented in this encounter Additional Health Concerns Assessment Noted Time PHQ-9 Depression Total Score: 4 07/19/19 23 9:39 AM EST documented as of this encounter Care Teams Injection Molding Process Technician Relationship Specialty Start Date End Date Lety Coronado MD [address] [place] [address] PCP - General Family Medicine 02/28/18 Agueda Barahona Culinary DirectorHealth Services Administrator 11/16/23 documented as of this encounter
--- OUTSIDE RECORDS SUMMARY | 2024-08-14 19:21 | XMS_ITS | Encounter Summary ---
Author Organization [employer] Address [address] [facility] 7t [place] [address] Care Team Providers Care Retort Kiln Burner Name Role Phone Lety Coronado MD Primary Care Provide r Encounter Details Date Type Department Care Team ([facility] Contact Info) Description 11/01/[address] [facility] MEDICINE [address] [place] [phone] Lety Coronado MD [address] [place] [address] [phone] Social History Tobacco Use Types Packs/Day Years [...] 09/05/2024 2:45 PM EDT Office Visit [facility] [address] [place] [address] [phone] Lety Coronado MD 230 [place], [place] [phone] documented as of this encounter Procedures Procedure [...] documented as of this encounter Care Teams Retort Kiln Burner Relationship Specialty Start Date End Date Lety Coronado MD [address] [place] [address] PCP - General Family Medicine 02/28/18 Agueda Barahona Appliance AssemblerSlime Plant Operator 11/16/23 documented as of this encounter
--- OUTSIDE RECORDS SUMMARY | 2024-08-14 19:21 | XMS_ITS | Encounter Summary ---
Author Organization [employer] Address [address] [facility] 7t [place] [address] Care Team Providers Care Employee Relations Administrator Name Role Phone Lety Coronado MD Primary Care Provide r Reason for Visit * Reason Comments Med Refill Encounter Details Date Type Department Care Team (Late st Contact Info) Description 05/22/2023 Refill [facility] MEDICINE 230 [place], [place] [phone] Anette Lopez MD 230 [place] [address] Chronic rhinitis Social History Tobacco Use Types [...] Office Visit [facility] MEDICINE [address] [place] [phone] Lety Coronado MD [address] [place] [address] documented as of this encounter Visit Diagnoses Diagnosis Chronic rhinitis documented in this encounter Additional Health Concerns Assessment Noted Time PHQ-9 Depression Total Score: 8 02/09/20 23 2:04 PM EDT documented as of this encounter Care Teams Employee Relations Administrator Relationship Specialty Start Date End Date Lety Coronado MD [address] [place] [address] PCP - General Family Medicine 02/28/18 Agueda Barahona Line SupervisorAquatic Facility Manager 11/16/23 documented as of this encounter
--- OUTSIDE RECORDS SUMMARY | 2024-08-14 19:21 | XMS_ITS | Encounter Summary ---
Author Organization [employer] Address [address] [place] [address] 7t [place] [address] Care Team Providers Care Pneumatic Tool Operator Name Role Phone Lety Coronado MD Primary Care Provide r Reason for Visit * Reason Onset Date Comments Durable Medical Equipment 09/21/2022 Encounter Details Date Type Department Care Team (Late st Contact Info) Description 09/21/2022 Refill [facility] MEDICINE [address] [place] [address] Lety Coronado MD [address] [place] [address] Chronic low back pain, unspecified back pain [...] requested to provider. Please contact pt at [phone] documented in this encounter Plan of Treatment Upcoming Encounters Date Type Department Care Team (Late st Contact Info) Description 09/05/2024 2:45 PM EDT Office Visit [facility] MEDICINE [address] [place] [address] Lety Coronado MD [address] [place] [address] documented as of this encounter Visit Diagnoses Diagnosis Chronic low back pain, unspecified back pain laterality, unspecified whether sciatica present- Primary documented in this encounter Additional Health Concerns Assessment Noted Time PHQ-9 Depression Total Score: 4 07/19/19 23 9:39 AM EST documented as of this encounter Care Teams Pneumatic Tool Operator Relationship Specialty Start Date End Date Lety Coronado MD [address] [place] [address] PCP - General Family Medicine 02/28/18 Agueda Barahona Projection Welding Machine OperatorCrusher Setter 11/16/23 documented as of this encounter
--- OUTSIDE RECORDS SUMMARY | 2024-08-14 19:21 | XMS_ITS | Clinical Summary ---
Author Organization [employer] Address [address] [place] [address] 7t [place] [address] Care Team Providers Care Bow Maker Production Name Role Phone Lety Coronado MD Primary [...] 2:18 PM EST): Continue to follow with CHLORINE OPERATOR patient will call for a sooner appointment [...] to codeine ort Morphoine and even tramadol ink jet operator her itching. She declines NSAIDS due to [...] AM EST): Pt currently seeing psychiatry and [facility]. Continue Ambien, unclear if she [...] on higher doses of amitriptylene Reminded to apple picker prescription for Imitrex PRN Normal recent MRI of the brain. Asthma 06/30/2017 Assessment & Plan (12/20/2023 4:48 PM EDT): Fairly control Patient educated to avoid asthma triggers Albuterol inhaler renewed Benzodiazepine dependence, continuous 06/30/2017 Urinary incontinence 06/30/2017 Urinary tract infectious disease 06/30/2017 Encounters Date Type Department Care Team Description 07/18/2024 Refill [facility] [address] [place] [address] Lety Coronado MD Chronic migraine without aura without status migrainosus, not intractable 07/03/2024 Telephone [facility] [address] [place] [address] Lety Coronado MD [facility] (Chux disposable underpad case and bag/Bladder control case and pads) 06/02/2024 Refill [facility] [address] [place] [address] Lety Coronado MD Chronic migraine without aura [...] Description 09/05/2024 2:45 PM EDT Office Visit [facility] [address] [place] [address] Lety Coronado MD [address] [place] [address] Health Maintenance Due Date Last Done Comments [...] EDT Narrative 05/01/2023 6:22 AM EST ? [facility] [place] ? [address] ?[place] [address] ? Mammography Report ? Signed ? Patient: Hernandez,Cami ?MR#: [id number] ?? 7 ? : 1965 ?Acct:[id number] ? Age/Sex: 58 / F ?ADM Date: //23 ? Loc: HO.MAMMO ? Attending Dr: Lety Guaman MD ? Ordering Physician: Lety Coronado MD ?Results: ?? 2Benign Findings ? Date of Service: 04/13/23 ?Follow Up: 1 Year From Orig ?? inal Mammogram ? Procedure(s): MM tomosynthesis screening BI ?? Accession Number(s): [id number] ? cc: Lety Coronado MD ? EXAMINATION: [...] ? DD/DT: 04/13/ 1450 ? TD/TT: ? Sample Collector: ? Procedure Note Andria, Image - 05/01/2023 [facility] [place] [address] Mammography Report Signed Patient: Cami HernandezMR#: [id number] 7 : 1965Acct:[id number] Age/Sex: 58 / FADM Date: 04/13/23 Loc: HO.MAMMO Attending Dr: Lety Guaman MD Ordering Physician: Lety Coronado MDResults: 2Benign Findings Date of Service: 04/13/23Follow Up: 1 Year From Orig inal Mammogram Procedure(s): MM tomosynthesis screening BI Accession Number(s): [id number] cc: Lety Coronado MD EXAMINATION: MM SCREENING [...] in OV> 05/01/23 0618 DD/ 1450 TD/TT: Sample Collector: us Lety Guaman MD IMG BI PROCEDURES Fin al Result * (ABNORMAL) Image-Guided Pap with Age-Based Screening??with CT/NG,??Trichomonas (11/24/2022 11:09 AMEDT) Comment 2 [employer] [facility] Comment: This order for age-based cervical cancer and STI screening follows ACOG guidelines(PB 168, 140, OHG026). See individual assays for performing site location. Clinical Information: 57 Y/O F 2 [employer] LMP: NONE GIVEN 2 [employer] [facility] Prev. PAP: NONE GIVEN 2 [employer] [facility] Prev. BX: NONE GIVEN 2 [employer] SOURCE: None given 2 [employer] Statement Of Adequacy: SATISFACTORY FOR EVALUATION [facility] Interpretation/Re sult: [facility] Comment: Negative for intraepithelial lesion or malignancy. Atrophic pattern; predominantly parabasal cells COMMENT: This Pap test has been evaluated with computer assisted technology. [facility] Traffic Control Specialist: [employer] Comment: [place], CT(ASCP) CT screening location: [address] ??[address] Review Traffic Control Specialist: 2 [employer] Comment: MSM, CT(ASCP) CT screening location: [address] ??[address] (Always Message) Que Natanael Ulien Comment: EXPLANATORY NOTE: The Pap is a [...] information. HPV nRNA E6/E7 Detected(A) Not Detected 2 [employer] [facility] Comment: Methodology: Home Restoration Service Cleaner-Mediated Amplification This assay detects E6/E7 viral messenger RNA (mRNA) from 14 high-risk HPV types (16,18,31,33,35,39,45,51,52,56,58,59,66,68). Cervical sources are required for HPV testing. If a vaginal source from a patient who has had a total hysterectomy with removal of cervix was submitted, please contact the testing laboratory for alternative testing options. For additional information, please refer to http://education.[employer]/faq/TKM191n7 (This link if provided for information/ educational purposes only.) Chlamydia trachomatis RNA, TMA, Urogenital NOT DETECTED NOT DETECTED [facility] Neisseria gonorrhoeae RNA, TMA, Urogenital NOT DETECTED NOT DETECTED [facility] (Always Message) Que [facility] Comment: The analytical performance characteristics of this assay, when used to test SurePath(TM) specimens have been determined by [facility]. The modifications have not been cleared or approved by the FDA. This assay has been validated pursuant to the CLIA regulations and is used for clinical purposes. For additional information, please refer to https://[employer]/faq/BFJ443 (This link is being provided for information/ educational purposes only.) Trichomonas vaginalis, QL, TMA, PAP Vial NOT DETECTED NOT DETECTED [facility] Comment: The analytical performance characteristics of this assay have been determined by [facility]. The modifications have not been cleared or approved by the FDA. This assay has been validated pursuant to the CLIA regulations and is used for clinical purposes. For additional information, please refer to http://[employer]/ faq/Trichomonastma (This link is being provided for information/ educational purposes only.) Swab 11/24/2022 11:0 9 AM EDT 11/25/2022 9:31 AM EDT Lety Guaman MD LAB CYTOLOGY ORDERABL ES Final Result [facility] [address], [place] [address] [facility] [address] [place] [address] * HPV Genotypes 16,18/45 (11/24/2022 11:09 AM EDT) HPV 16 RNA NOT DETECTED NOT DETECTED [facility] [place] [facility] HPV 18/45 RNA NOT DETECTED NOT DETECTED [facility] [place] [facility] Comment: Methodology: Home Restoration Service Cleaner Mediated Amplification Cervical sources are required for HPV testing. If a vaginal source from a patient who has had a total hysterectomy with removal of cervix was submitted, please contact the testing laboratory for alternative testing options. 11/24/2022 11:0 9 AM EDT 11/25/2022 9:31 AM EDT Lety Guaman MD LAB BLOOD ORDERABLES Final Result [facility] [address], [place] [address] [facility] [address] [place] [address] * Colonoscopy (10/16/2014) Colonoscopy Normal Normal 10/16/2014 Narrative Yue Olea - 10/16/2014 11:32 AM EDT Recommended 5 year follow up ( Dr. Torres) Historical Provider HEALTH MAINTENANCE Final Result from Last 3 Months or Most Recently Relevant to Health Maintenance Insurance C3 Care Teams Bow Maker Production Relationship Specialty Start Date End Date Lety Coronado MD [address] [place] [phone] PCP - General Family Medicine 02/28/18 Agueda Barahona Restaurant Area DirectorCommunity Representative 11/16/23
--- OUTSIDE RECORDS SUMMARY | 2024-08-14 19:21 | XMS_ITS | Encounter Summary ---
Author Organization [employer] Address [address] [facility] 7t [place] [address] Care Team Providers Care Block Saw Operator Name Role Phone Lety Coronado MD Primary Care Provide r Reason for Visit * Reason Comments Med Refill Encounter Details Date Type Department Care Team (Late st Contact Info) Description 07/18/2024 Refill [facility] MEDICINE [address] [place], [place] [phone] Lety Coronado MD 230 [place] [address] Chronic migraine without aura without status migrainosus, [...] Description 09/05/2024 2:45 PM EDT Office Visit [facility] MEDICINE [address] [place] [address] Lety Coronado MD [address] [place] [address] documented as of this encounter Visit Diagnoses Diagnosis Chronic migraine without aura without status migrainosus, not intractable documented in this encounter Additional Health Concerns Assessment Noted Time PHQ-9 Depression Total Score: 8 02/09/20 23 2:04 PM EDT documented as of this encounter Care Teams Block Saw Operator Relationship Specialty Start Date End Date Lety Coronado MD [address] [place] [address] PCP - General Family Medicine 02/28/18 Agueda Barahona Buttonhole MakerFreelance Interpreter/Translator 11/16/23 documented as of this encounter
--- OUTSIDE RECORDS SUMMARY | 2024-08-14 19:21 | XMS_ITS | Encounter Summary ---
Author Organization [employer] Address [address] [facility] 7t [place] [address] Care Team Providers Care Payroll Administrative Assistant Name Role Phone Lety Coronado MD Primary Care Provide r Reason for Visit * Reason Onset Date Comments Med Refill 09/21/2022 Encounter Details Date Type Department Care Team (Late st Contact Info) Description 09/21/2022 Telephone [facility] MEDICINE [address] [place] [address] Lety Coronado MD 230 [place] [address] Med Refill Social History Tobacco Use Types [...] Tramadol 50 mg tablet Please sent to [facility]/pharmacy #[id number] - [place] - [address] [place] [address] documented in this encounter Plan of Treatment Upcoming Encounters Date Type Department Care Team (Late st Contact Info) Description 09/05/2024 2:45 PM EDT Office Visit [facility]IC[facility] [address] [place] [address] Lety Coronado MD [address] [place] [address] documented as of this encounter Visit Diagnoses Not on filedocumented in this encounter Additional Health Concerns Assessment Noted Time PHQ-9 Depression Total Score: 4 07/19/19 23 9:39 AM EST documented as of this encounter Care Teams Payroll Administrative Assistant Relationship Specialty Start Date End Date Lety Coronado MD [address] [place], [place] [phone] PCP - General Family Medicine 02/28/18 Agueda Barahona Transitional Care NurseSeptic Tank Cleaner 11/16/23 documented as of this encounter
--- OUTSIDE RECORDS SUMMARY | 2024-08-14 19:21 | XMS_ITS | Encounter Summary ---
Author Organization [employer] [facility] Address [address] [place] [address] 7t [place] [address] Care Team Providers Care Sole Buffer Name Role Phone Lety Coronado MD Primary Care Provide r Reason for Visit * Reason Comments Med Change Request Encounter Details Date Type Department Care Team (Late st Contact Info) Description 08/23/2022 Refill [facility] MEDICINE [address] [place] [address] [phone] Anette Lopez MD [address] [place] [address] [phone] Gastroesophageal reflux disease without esophagitis Social History [...] Description 09/05/2024 2:45 PM EDT Office Visit [facility] MEDICINE [address] [place] [address] [phone] Lety Coronado MD 230 [place], [place] [phone] documented as of this encounter Visit Diagnoses Diagnosis Gastroesophageal reflux disease without esophagitis Esophageal reflux documented in this encounter Additional Health Concerns Assessment Noted Time PHQ-9 Depression Total Score: 4 07/19/19 23 9:39 AM EST documented as of this encounter Care Teams Sole Buffer Relationship Specialty Start Date End Date Lety Coronado MD 230 [place] [address] PCP - General Family Medicine 02/28/18 Agueda Barahona Rotary Drier OperatorMannequin Mounter 11/16/23 documented as of this encounter
--- OUTSIDE RECORDS SUMMARY | 2024-08-14 19:21 | XMS_ITS | Encounter Summary ---
Author Organization [employer] Address 75 [facility] 7t [place] [address] Care Team Providers Care Vehicle Return Associate Name Role Phone Lety Coronado MD Primary Care Provide r Reason for Visit * Reason Onset Date Comments Letter for School/Work 12/11/2023 Encounter Details Date Type Department Care Team ([facility] st Contact Info) Description 12/11/2023 Telephone [facility] MEDICINE 230 [place], [place] [phone] Lety Coronado MD [address] [place] [address] Letter for School/Work Social History Tobacco Use [...] patient to return my call LVM to Production Sound Mixer-- patient will need to come in to put in request. * Telephone Encounter - Shanell Joiner - 12/11/2023 10:41 AM EDT Tc from [place] with N (home care music therapist) states pt is requesting a letter stating pets in home is for emotional support due to management requesting a letter to keep pets. documented in this encounter Plan of Treatment Upcoming Encounters Date Type Department Care Team (Late st Contact Info) Description 09/05/2024 2:45 PM EDT Office Visit [facility] MEDICINE [address] [place] [address] Lety Coronado MD [address] [place] [address] documented as of this encounter Visit Diagnoses Not on filedocumented in this encounter Additional Health Concerns Assessment Noted Time PHQ-9 Depression Total Score: 8 02/09/20 2:04 PM EDT documented as of this encounter Care Teams Vehicle Return Associate Relationship Specialty Start Date End Date Lety Coronado MD [address] [place] [address] PCP - General Family Medicine 9/12/18 Agueda Barahona Retail Wireless Sales ConsultantSchool Psychological Examiner 11/16/23 documented as of this encounter
[2024-08-20 11:23] LABS: HPV Genotype 16 Negative (Negative); HPV Genotype 18 Negative (Negative); HPV High Risk Negative (Negative)
== END 2024-08-14 15:05 | disposition home or self-care (01) ==
LOC: HO.LNP 15:04
PROVIDERS: Visit Provider Obstetrics & Gynecology
DX: Z01.419 Encounter for gynecological examination (general) (routine) without abnormal findings (principal); D06.9 Carcinoma in situ of cervix, unspecified; R87.810 Cervical high risk human papillomavirus (HPV) DNA test positive
CPT/HCPCS: 87626; 88175; 99396; 99459

== ENCOUNTER 2024-09-25 08:33 | Outpatient (REF) | payer MEDICAID, SELFPAY ==
--- OUTSIDE RECORDS SUMMARY | 2024-09-25 08:47 | XMS_ITS ---
Author Organization [facility] Address [address] [place] [id number] Care Team Providers Care Star Route Mail Driver Name Role Phone Lety Watson M.D. Primary Care Provider Chico Dash Unavailable [phone] REASON FOR VISIT please take out old colonoscopy alert. Encounters Encounter Location Date Provider Diagnosis [facility] [address] [place] [phone] 08/08/2024 Chico Torres Plan Of Treatment No Information Progress Notes * JASON DIETZGHAZALOB:1965 (59 yo F)Acc No.[id number]:08/08/2024 Patient:?GERARD DIETZ :1965???Age:59 Y???Sex:Female Address:[address] [place] [address], [place] [address] * true * Date:? Generated for Jeremias palacios/Tete/eTransmitting on:?09/25/2024 08:47 AM EDT
--- OUTSIDE RECORDS SUMMARY | 2024-09-25 08:47 | XMS_ITS | Patient Health Record ---
Author Organization [facility] Address [address] [place] [address] Care Team Providers Care Technical Expert Name Role Phone Lety Watson M.D. Primary Care Provider Chico Dash Unavailable [phone] Allergies Allergen (clinical drug ingredient) Drug/Non Drug Allergy documented on EMR Reaction Allergy Type Onset Date Status Penicillin Unknown Drug Allergy Active codeine Codeine Sulfate Unknown Drug Allergy A ctive Reason For Referral No Information Medications Medication SIG (Take, Route, Frequency, Duration) Notes [...] TABLETS PER 24HRS Oral for 30 Active Immunizations Vaccine Route Administration Date Status Comme nts Influenza Unknown 03/19/2022 Administered Social History Alcohol Screen Question Answer Notes Did you [...] Never (0 point) Points 0 Interpretation Negative Section Notes: Smoker; no significant alcoh ol use Smoker; no significant alcoh ol use Smoker; no significant alcoh ol use Nonsmoker; no significant al cohol use Nonsmoker; no significant al cohol use Problems Problem Type SNOMED Code ICD Code Onset Dates Problem Status W/U Status Risk Notes Problem 48865143 Epigastric abdominal pain (R10.13) Active confirmed Problem 37141233 Rectal bleeding (K62.5) Active confirmed Problem Diverticular disease of colon (626543140) Diverticulosis of large intestine without perforation or abscess without bleeding (K57.30) Active confirmed Problem Gastroesophageal reflux disease (780878295) Gastroesophageal reflux disease (K21.9) Active confirmed Problem 79601471 Abdominal pain, epigastric (R10.13) Active confirmed Problem 853664828 Gastroesophageal reflux disease, esophagitis presence not specified (K21.9) Active confirmed Problem Gastritis (8350588) Gastritis (K29.70) Active c onfirmed Problem 163732815 Gastroesophageal reflux disease, unspecified whether esophagitis present (K21.9) Active confirmed Encounters Encounter Location Date Provider Diagnosis [facility] [address] [place] [phone] 08/08/2024 Chico Torres Plan Of Treatment Pending Test Test Name Order Date LIVER PROFILE 07/06/2022 CBC w DIFF 07/06/2022 Future Test Test Name Order Date COLONOSCOPY 07/31/2014 UPPER GI ENDOSCOPY 07/06/2022 COLONOSCOPY 03/07/2023 Insurance Providers Payer Name Payer Address Payer Phone Subscriber Number Group Number Insured Name Patient Relationship to Insured Coverage Start Date Coverage End Date MEDICA[employer] OF [employer] [address] [place] PUR[place] [phone] [id number] GERARD DIETZ Self - patient is the insured Medical (General) History Medical History History ICD Code IBS--good relief with Bentyl Asthma GERD--EGD 05/2011 with a sma ll hiatal hernia-bx neg. for H.pylori; upper endoscopy in August of 2022 revealed a small to moderate size hiatal hernia but no evidence of any significant esophagitis, Redman's esophagus, ulcer disease, nor H. pylori Depression Back pain--has a nerve stimulator for ch ronic pain Denies ID,DM,CVA,renal disease Fibromyalgia Arthritis Negative colonoscopy in 09/2014 [...]
--- OUTSIDE RECORDS SUMMARY | 2024-09-25 08:47 | XMS_ITS ---
Author Organization [facility] Address [address] [place] [address] Care Team Providers Care Deli/Bakery Associate Name Role Phone Lety Watson M.D. Primary Care Provider Chico Dash Unavailable [phone] REASON FOR VISIT rectal bleeding Problems Problem Type SNOMED Code ICD Code Onset Dates Problem Status W/U Status Risk Notes Problem Diverticular disease of colon (290978729) Diverticulosis of large intestine without perforation or abscess without bleeding (K57.30) Active confirmed Encounters Encounter Location Date Provider Diagnosis [facility] Outpatient [address] [place] [id number] 05/10/2023 Chico Torres Diverticulosis of large intestine without perforation or abscess without bleeding K57.30 ; Other hemorrhoids K64.8 and Hematochezia K92.1 Assessments Encounter Date Diagnosis (ICD Code) Assessment Notes Treatment Notes Treatment Clinical Notes Section Notes 05/10/2023 Diverticulosis of large intestine without perforation or abscess without bleeding (ICD-10 - K57.30) 05/10/2023 Other hemorrhoids (ICD-10 - K64.8) 05/10/2023 Hematochezia (ICD-10 - K92.1) Plan Of Treatment No Information Progress Notes * DORYS DIETZOB:1965 (59 yo F)Acc No.[id number]:05/10/2023 COLON WITH MAC Patient:?GERARD DIETZ Provider:?Chico Torres MD :1965???Age:58 Y???Sex:Female D ate:05/10/2023 Address:[address] [place] [address] [facility] Pcp:Lety Watson M.D. Subjective: * Chief Complaints: * ???1. Rectal bleeding. * Medical History:? Objective: * Vitals:? Assessment: * Assessment: 1.?Diverticulosis of large i ntestine without perforation or abscess without bleeding - K57.30 (Primary)???2.?Other hemorrhoids - K64.8???3.?Hematochezia - K92.1??? Plan: * Treatment: * Procedure Codes:?34737 DIAGN OSTIC COLONOSCOPY * * The named appointment provid er may or may not be the originator of this progress note, and it is not deemed complete until electronically signed by the appointment provider. Sign off status: Pending * Provider:?Chico Torres MD Date:? 023 Generated for Jeremias palacios/Tete/eTtammysmitting on:?09/25/2024 08:47 AM EDT
[2024-09-25 11:46] LABS: MANUAL DIFF FLAG NO
[2024-09-25 12:07] LABS: Basophils Percent Auto 0.4 % (0-2); Eosinophils Percent Auto 0.6 % (0-4); Hematocrit 39.2 % (37.0-47.0); Hemoglobin 13.1 g/dl (12.0-16.0); Imm Gran Abs Auto 0.01 X10*3/uL (0.00-0.03); Imm Gran Pct Auto 0.2 % (0.0-0.4); Lymphocytes Absolute Auto 1.3 X10*3/uL (1.2-4.9); Lymphocytes Percent Auto 27.7 % (20-40); Mean Corpuscular HGB Conc 33.4 g/dl (31.0-35.0); Mean Corpuscular Hemoglobin 27.1 pg (27.0-33.0); Mean Corpuscular Volume 81.2 fL (80.0-98.0); Mean Platelet Volume 10.3 fL (9.4-12.3); Monocytes Absolute Auto 0.3 X10*3/uL (0.1-1.2); Monocytes Percent Auto 5.5 % (2-11); Neutrophils Absolute Auto 3.1 x10*3/uL (2.0-8.3); Neutrophils Percent Auto 65.6 % (45-73); Platelet Count 218 X10*3/uL (160-400); Red Blood Count 4.83 X10*6/uL (4.20-5.50); Red Cell Distribution Width 13.6 % (11.0-16.0); White Blood Count 4.8 X10*3/uL (4.8-10.8)
[2024-09-25 12:08] LABS: Estimated Average Glucose 105 mg/dL; Hemoglobin A1C 122.7498 umol/L; Hemoglobin A1c % 5.3 % (<6.0); Total Hemoglobin (HGBA1C) 3528.0484 umol/L
[2024-09-25 12:23] LABS: Alanine Aminotransferase 24 U/L (0-31); Albumin Level 4.5 g/dL (3.5-5.0); Alkaline Phosphatase 63 U/L (39-117); Anion Gap 11 (12-20); Aspartate Amino Transferase 26 U/L (5-31); Bilirubin Total 0.5 mg/dL (0.0-1.0); Blood Urea Nitrogen 19 mg/dL (9-16); Calcium 9.4 mg/dL (8.4-10.2); Carbon Dioxide 27 mmol/L (22-29); Chloride 106 mmol/L (96-108); Cholesterol 211 mg/dL (<200); Estimated Glomerular Filt Rate > 60; Glucose Random 97 mg/dL (60-115); HDL Cholesterol 53 mg/dL (>40); LDL Cholesterol Calculated 140 mg/dL (<100); Potassium 4.6 mmol/L (3.3-5.1); Sodium 139 mmol/L (135-145); Total Protein 7.1 g/dL (6.5-8.0); Triglycerides 91 mg/dL (<150)
[2024-09-25 12:31] LABS: HIV AB/AG Nonreactive (Nonreactive); HIV Num 1 0.06 S/CO (0.00-0.99); ~HepC Num1 0.26 S/CO (0.00-0.79); ~Hepatitis C Antibody Nonreactive (Nonreactive)
[2024-09-25 12:44] LABS: TSH reflex Free T4 0.35 uIU/mL (0.32-4.0); Vitamin D 25-OH Total 29.3 ng/mL (>30)
== END 2024-09-25 08:34 | disposition home or self-care (01) ==
LOC: HO.HHCL 08:33
PROVIDERS: Visit Provider Internal Medicine
DX: Z00.00 Encounter for general adult medical examination without abnormal findings (principal)
CPT/HCPCS: 36415; 80053; 80061; 82306; 83036; 84443; 85025; 86803; 87389

== ENCOUNTER 2024-10-14 10:40 | Outpatient (REF) | payer MEDICAID, SELFPAY ==
--- OUTSIDE RECORDS SUMMARY | 2024-10-14 12:37 | XMS_ITS | Encounter Summary ---
Author Organization [employer] Address [address] [facility] 7t [place] [address] Care Team Providers Care Identification Printing Machine Setter Name Role Phone Lety Coronado MD Primary Care Provide r Reason for Visit * Reason Onset Date Comments Letter for School/Work 04/07/2023 Encounter Details Date Type Department Care Team (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 documented in this encounter Plan of Treatment Upcoming Encounters Date Type Department Care Team (Late st Contact Info) Description 01/16/2025 1:30 PM EDT Office Visit [facility] OPTOMETRY [address] [place] [address] Edwin, Judy, OD 230 [place] [address] documented as of this encounter Visit Diagnoses Not on filedocumented in this encounter Additional Health Concerns Assessment Noted Time PHQ-9 Depression Total Score: 8 02/09/20 2:04 PM EDT documented as of this encounter Care Teams Identification Printing Machine Setter Relationship Specialty Start Date End Date Lety Coronado MD [address] [place] [address] PCP - General Family Medicine 02/28/18 Agueda Barahona Thermometer MakerBird Cage Assembler 11/16/23 documented as of this encounter
--- OUTSIDE RECORDS SUMMARY | 2024-10-14 12:37 | XMS_ITS | Encounter Summary ---
Author Organization [employer] Address [address] [facility] 7t [place] [address] Care Team Providers Care Row Boss Name Role Phone Lety Coronado MD Primary Care Provide r Reason for Visit * Reason Comments Med Change Request Encounter Details Date Type Department Care Team (Late Contact Info) Description 08/23/2022 Refill [facility] MEDICINE [address] [place] [address] Anette Lopez MD [address] [place] [address] Gastroesophageal reflux disease without esophagitis Social History [...] Description 01/16/2025 1:30 PM EDT Office Visit [facility] OPTOMETRY [address] [place] [address] Judy Pineda, OD 230 [place] [address] documented as of this encounter Visit Diagnoses Diagnosis Gastroesophageal reflux disease without esophagitis Esophageal reflux documented in this encounter Additional Health Concerns Assessment Noted Time PHQ-9 Depression Total Score: 4 07/19/19 23 9:39 AM EST documented as of this encounter Care Teams Row Boss Relationship Specialty Start Date End Date Lety Coronado MD [address] [place] [address] PCP - General Family Medicine 02/28/18 Agueda Barahona Pest Control Chemical TechnicianNitrating Acid Mixer 11/16/23 documented as of this encounter
--- OUTSIDE RECORDS SUMMARY | 2024-10-14 12:37 | XMS_ITS | Encounter Summary ---
Author Organization [employer] [facility] Address [address] [place] [address] 7t [place] [address] Care Team Providers Care Leverman Name Role Phone Lety Coronado MD Primary Care Provide r Reason for Visit * Reason Comments Med Refill Encounter Details Date Type Department Care Team (Late Contact Info) Description 08/23/2022 Refill [facility] MEDICINE [address] [place] [address] Anette Lopez MD [address] [place] [address] Chronic rhinitis Social History Tobacco Use Types [...] Description 01/16/2025 1:30 PM EDT Office Visit [facility] OPTOMETRY [address] [place] [address] Judy Pineda, OD [address] [place] [address] documented as of this encounter Visit Diagnoses Diagnosis Chronic rhinitis documented in this encounter Additional Health Concerns Assessment Noted Time PHQ-9 Depression Total Score: 4 07/19/19 23 9:39 AM EST documented as of this encounter Care Teams Leverman Relationship Specialty Start Date End Date Lety Coronado MD [address] [place] [address] PCP - General Family Medicine 02/28/18 Augeda Barahona Insurance Compliance AnalystEngineering Leader 11/16/23 documented as of this encounter
--- OUTSIDE RECORDS SUMMARY | 2024-10-14 12:38 | XMS_ITS | Encounter Summary ---
Author Organization [employer] Address [address] [facility] 7t [place] [address] Care Team Providers Care Button Sawyer Name Role Phone Lety Coronado MD Primary Care Provide r Encounter Details Date Type Department Care Team ([facility] Contact Info) Description 11/01/2022 Abstract [facility] MEDICINE [address] [place] [address] Lety Coronado MD [address] [place] [address] Social History Tobacco Use Types Packs/Day Years [...] Department Care Team (Late Contact Info) Description 01/16/2025 1:30 PM EDT Office Visit [facility] OPTOMETRY [address] [place] [address] Edwin, Judy, OD 230 [place] [address] documented as of this encounter Procedures Procedure [...] documented as of this encounter Care Teams Button Sawyer Relationship Specialty Start Date End Date Lety Coronado MD [address] [place] [address] PCP - General Family Medicine 02/28/18 Agueda Barahona Low Voltage ElectricianWood Engraver 11/16/23 documented as of this encounter
--- OUTSIDE RECORDS SUMMARY | 2024-10-14 12:38 | XMS_ITS | Encounter Summary ---
Author Organization [employer] Address [address] [facility] 7t [place] [address] Care Team Providers Care Pathologist Name Role Phone Lety Coronado MD Primary Care Provide r Encounter Details Date Type Department Care Team (Late st Contact Info) Description 12/01/2022 Orders Only [facility] MEDICINE [address] [place] [address] Tiana Obando, RN [address] [place] [address] Social History Tobacco Use Types Packs/Day Years [...] Description 01/16/2025 1:30 PM EDT Office Visit [facility] OPTOMETRY [address] [place] [address] Judy Pineda, OD 230 [place] [address] documented as of this encounter Visit Diagnoses Not on filedocumented in this encounter Additional Health Concerns Assessment Noted Time PHQ-9 Depression Total Score: 4 07/19/19 23 9:39 AM EST documented as of this encounter Care Teams Pathologist Relationship Specialty Start Date End Date Lety Coronado MD [address] [place] [address] PCP - General Family Medicine 02/28/18 Agueda Barahona Airplane DesignerRag Sorter And Cutter 11/16/23 documented as of this encounter
--- OUTSIDE RECORDS SUMMARY | 2024-10-14 12:38 | XMS_ITS | Encounter Summary ---
Author Organization [employer] Address [address] [facility] 7t [place] [address] Care Team Providers Care Slag Motor Operator Name Role Phone Lety Coronado MD Primary Care Provide r Reason for Visit * Reason Onset Date Comments Appointment Request 03/06/2024 Call Back Request 03/06/2024 Encounter Details Date Type Department Care Team ([facility] st Contact Info) Description 03/06/2024 Telephone [facility] MEDICINE [address] [place] [address] Lety Coronado MD 230 [place], [place] [phone] Appointment Request; Call Back Request Social History [...] Miscellaneous Notes * Telephone Encounter - Ulices Bacon - 03/06/2024 12:32 PM EDT Tc from patient requesting a appt states is currently in [place] and will be returning in March patient did not provide any information on why the appt is needed requesting a call a back documented in this encounter Plan of Treatment Upcoming Encounters Date Type Department Care Team (Late st Contact Info) Description 01/16/2025 1:30 PM EDT Office Visit [facility] OPTOMETRY [address] [place] [address] Judy Pineda, OD [address] [place] [address] documented as of this encounter Visit Diagnoses Not on filedocumented in this encounter Additional Health Concerns Assessment Noted Time PHQ-9 Depression Total Score: 8 02/09/20 23 2:04 PM EDT documented as of this encounter Care Teams Slag Motor Operator Relationship Specialty Start Date End Date Lety Coronado MD [address] [place] [address] PCP - General Family Medicine 02/28/18 Agueda Barahona Beauty OperatorGravure Press Operator 11/16/23 documented as of this encounter
--- OUTSIDE RECORDS SUMMARY | 2024-10-14 12:38 | XMS_ITS | Encounter Summary ---
Author Organization [employer] Address [address] [place] [address] 7t [place] [address] Care Team Providers Care Oracle Fusion Consultant Name Role Phone Lety Coronado MD Primary Care Provide r Reason for Visit * Reason Onset Date Comments Durable Medical Equipment 09/21/2022 Encounter Details Date Type Department Care Team (Late st Contact Info) Description 09/21/2022 Refill [facility] MEDICINE [address] [place] [address] Lety Coronado MD [address] [place] [address] Chronic low back pain, unspecified back pain [...] requested to provider. Please contact pt at [phone] documented in this encounter Plan of Treatment Upcoming Encounters Date Type Department Care Team (Late st Contact Info) Description 01/16/2025 1:30 PM EDT Office Visit [facility] OPTOMETRY [address] [place] [address] Judy Pineda, OD [address] [place] [address] documented as of this encounter Visit Diagnoses Diagnosis Chronic low back pain, unspecified back pain laterality, unspecified whether sciatica present- Primary documented in this encounter Additional Health Concerns Assessment Noted Time PHQ-9 Depression Total Score: 4 07/19/19 23 9:39 AM EST documented as of this encounter Care Teams Oracle Fusion Consultant Relationship Specialty Start Date End Date Lety Coronado MD [address] [place] [address] PCP - General Family Medicine 02/28/18 Agueda Barahona Transformer InspectorBreakfast Server 11/16/23 documented as of this encounter
--- OUTSIDE RECORDS SUMMARY | 2024-10-14 12:38 | XMS_ITS | Encounter Summary ---
Author Organization [employer] Address 75 [facility] 7t [place] [address] Care Team Providers Care Farebox Repairer Name Role Phone Lety Coronado MD Primary Care Provide r Reason for Visit * Reason Onset Date Comments Med Refill 09/21/2022 Encounter Details Date Type Department Care Team (Late st Contact Info) Description 09/21/2022 Telephone [facility] MEDICINE [address] [place] [address] Lety Coronado MD [address] [place] [address] Med Refill Social History Tobacco Use Types [...] Tramadol 50 mg tablet Please sent to [facility]/pharmacy #[id number] - [place] - [address] [place] [address] documented in this encounter Plan of Treatment Upcoming Encounters Date Type Department Care Team (Late st Contact Info) Description 01/16/2025 1:30 PM EDT Office Visit [facility] OPTOMETRY [address] [place] [address] Judy Pineda, OD [address] [place] [address] documented as of this encounter Visit Diagnoses Not on filedocumented in this encounter Additional Health Concerns Assessment Noted Time PHQ-9 Depression Total Score: 4 07/19/19 23 9:39 AM EST documented as of this encounter Care Teams Farebox Repairer Relationship Specialty Start Date End Date Lety Coronado MD [address] [place] [address] PCP - General Family Medicine 02/28/18 Agueda Barahona Assembler Golf Wood HeadElectrolysis Investigator 11/16/23 documented as of this encounter
--- OUTSIDE RECORDS SUMMARY | 2024-10-14 12:38 | XMS_ITS | Encounter Summary ---
Author Organization [employer] Address [address] [facility] 7t [place] [address] Care Team Providers Care Blood Bank Supervisor Name Role Phone Lety Coronado MD Primary Care Provide r Reason for Visit * Reason Comments Med Refill Encounter Details Date Type Department Care Team (Late st Contact Info) Description 05/22/2023 Refill [facility] MEDICINE 230 [place], [place] [phone] Anette Lopez MD 230 [place] [address] Chronic rhinitis Social History Tobacco Use Types [...] Description 01/16/2025 1:30 PM EDT Office Visit [facility] OPTOMETRY [address] [place], [place] [phone] Judy Pineda, OD 230 [place] [address] documented as of this encounter Visit Diagnoses Diagnosis Chronic rhinitis documented in this encounter Additional Health Concerns Assessment Noted Time PHQ-9 Depression Total Score: 8 02/09/20 23 2:04 PM EDT documented as of this encounter Care Teams Blood Bank Supervisor Relationship Specialty Start Date End Date Lety Coronado MD 230 [place] [address] PCP - General Family Medicine 02/28/18 Agueda Barahona Airplane Pilot Crop DustingCoordinator Of Health Services 11/16/23 documented as of this encounter
--- OUTSIDE RECORDS SUMMARY | 2024-10-14 12:38 | XMS_ITS | Clinical Summary ---
Author Organization [employer] Address [address] [facility] [address] [place] [address] Care Team Providers Care Oriental Medicine Practitioner Name Role Phone Lety Coronado MD Primary Care Provide r Allergies Active Allergy Reactions Criticality Noted Date Comments Codeine Unknown 06/15/2010 Erythromycin 06/15/2010 Morphine 06/15/2010 Penicillins Unknown 06/15/2010 Medications mirtazapine (Remeron) 45 MG tablet Take 1 tablet (45 mg) by mouth at bedtime. 90 tablet 3 Active fluticasone (Flonase) 50 MCG/ACT nasal sprayIndications :Chronic rhinitis INHALE 2 SPRAY BY INTRANASAL ROUTE EVERY DAY IN EACH NOSTRIL NEEDED 48 mL 3 Active albuterol (Ventolin HFA) 108 (90 Base) MCG/ACT inhalerIndicatio ns:Mild intermittent asthma without complication TOME DOS INHALACIONES POR VIA ORAL CADA CUATRO A SEIS HORAS CUANDO SEA NECESARIO 18 g 1 4 Active lidocaine (Lidoderm) 5 % patchIndications :Back pain, unspecified back location, unspecified back pain laterality, unspecified chronicity APLIQUAR UN PARCHE A DIARIO Y DEJAR HASTA 12 HORAS AL LUNA 30 patch 3 4 Active tiZANidine (Zanaflex) 4 MG tabletIndication s:Chronic bilateral low back pain, unspecified whether sciatica present,Cervical disc disease Take 1 tablet (4 mg) by mouth every 8 (eight) hours if needed for muscle spasms for up to 20 days. 30 tablet 1 4 Active amitriptyline (Elavil) 100 MG tabletIndication s:Chronic migraine without aura without status migrainosus, not intractable TOME 1 TABLETA POR VIA ORAL TODOS LOS FLANNERY AL ACOSTARSE 90 tablet 5 Active omeprazole (PriLOSEC) [address] capsuleIndicatio ns:Gastroesophag eal reflux disease without esophagitis TAKE 1 CAPSULE BY MOUTH EVERY DAY 90 capsule 1 5 Active acetaminophen (Tylenol 8 Hour) 650 MG ER tabletIndication s:Chronic midline thoracic back pain Take 1 tablet (650 mg) by mouth every 8 (eight) hours if needed for mild pain. Do not crush, chew, or split. 60 tablet 2 5 025 Active cyclobenzaprine (Flexeril) 10 MG tabletIndication s:Chronic midline thoracic back pain Take 1 tablet (10 mg) by mouth 3 times daily for 20 days. 60 tablet 5 Active lidocaine (Lidoderm) 5 % patchIndications :Chronic midline thoracic back pain Apply 1 patch topically Once per day. Remove & discard patch within 12 hours or as directed by MD. 30 patch 1 5 Active SUMAtriptan (Imitrex) 100 MG tabletIndication s:Chronic migraine without aura without status migrainosus, not intractable TAKE 1 TABLET BY MOUTH AT ONSET OF HEADACHE & EVERY 4 HOURS NEEDED UP TO TWICE A DAY FOR 30 DAYS 9 tablet 1 5 Active Active Problems Problem Noted Date Diagnosed Date Psychosis 09/05/2024 Assessment & Plan (09/06/2024 11:05 AM EDT): Patient was hospitalized on 03/19/2024 for psychosis she was rhen seen by psychiatrist medication where adjusted she is now on mirtazepine 15mg, amitryptiline 25mg, risperidone 3mg at bed time, lorazepam 1mg if needed (only 10 tablets per months) and buspirone 15mg 1 tablet 3 times a day I advised to continue to follow-up with therapist and psychiatrist Chronic midline thoracic back pain 09/05/2024 Assessment & Plan (09/06/2024 11:04 AM EDT): Problem is chronic she is not taking any medications for the pain I advised apply heat on affected area I will prescribe for patient acetaminophen as needed, Flexeril 10 mg every 8 hours (patient is aware of side effects somnolence and that she cannot drive while taking this medication) and lidocaine patches Diminished vision 09/05/2024 Neck pain 07/21/2023 Assessment & Plan (07/21/2023 4:35 PM EST): Apply heat on affected area cyclobenzaprine (use as prescribed) Acetaminophen PRN Rectal bleeding 04/25/2023 Assessment & Plan (04/25/2023 2:18 PM EST): Do not mis GI/colonoscopy appointment Cervical cancer 04/25/2023 Assessment & Plan (04/25/2023 2:18 PM EST): Continue to follow with [facility]PART[facility]IEF [facility]RARIAN patient will call for a sooner appointment [...] to codeine ort Morphoine and even tramadol companion caregiver her itching. She declines NSAIDS due [...] AM EST): Pt currently seeing psychiatry and FC. Continue Ambien, unclear if she is taking [...] without esophagi tis 06/30/2017 Assessment & Plan (09/06/2024 11:03 AM EDT): I advise patient to avoid NSAIDs, spicy and acid food, I advise to eat at the same time every day, I advise to elevate the head of the bed and take medications as prescribe Assessment & Plan (12/20/2023 4:48 PM EDT): [...] on higher doses of amitriptylene Reminded to belt picker prescription for Imitrex PRN Normal recent MRI of the brain. Asthma 06/30/2017 Assessment & Plan (12/20/2023 4:48 PM EDT): Fairly control Patient educated to avoid asthma triggers Albuterol inhaler renewed Benzodiazepine dependence, continuous 06/30/2017 Urinary incontinence 06/30/2017 Urinary tract infectious disease 06/30/2017 Encounters Date Type Department Care Team Description 09/26/2024 Telephone [facility] [address] [place] [phone] Lety Coronado MD Results 09/12/2024 Refill [facility] [address] [place] [phone] Name, MD Major Chronic migraine without aura without status migrainosus, not intractable 09/05/2024 2:45 PM EDT Office Visit [facility] [address] [place] [phone] Lety Coronado MD Encounter for preventive care (Primary Dx); Psychosis, unspecified psychosis type (CMS/HCC); Gastroesophageal reflux disease without esophagitis; Chronic midline thoracic back pain; Diminished vision 09/05/2024 Travel 09/05/2024 Refill [facility] [address] [place] [address] Anette Lopez MD Chronic migraine without aura without status migrainosus, not intractable 08/30/2024 Population Health Risk Score [facility] ([facility] Department [address] [place] [address] [phone] Provider, Population Health Generic 08/28/2024 Patient Outreach [facility] [address] [place] [address] Lety Coronado MD Pre-visit Planning (SDOH screening negative and tobacco screening positive) 08/14/2024 Orders Only GENERIC EXTERNAL DATA DEPARTMENT Provider, Generic External Data 07/18/2024 Refill [facility] [address] [place] [address] Lety Coronado MD Chronic migraine without aura [...] Tobacco: Never Tobacco Cessation:Counseling Given: Not Answered Alcohol Use Standard Drinks/Week Comments Never 0 (1 standard drink = 0.6 oz pur e alcohol) Depression Answer Date Recorded Patient Health Questionnaire-9 Score 5 09/05/2024 Patient Health Questionnaire-9 Score 5 09/05/2024 Last PHQ-9: Questionnaire Data Not on file 0 09/05/2024 Housing Stability Answer Date Recorded What is your housing situation today? I have cookie cartagena 08/28/[address] you li ve. Do you have problems with any of the following? None of the above 08/28/2024 Food Insecurity Answer Date Recorded Within the past 12 months, y ou worried that your food would run out before you got money to buy more: Never True 08/28/2024 Within the past 12 months,th e food you bought just didn't last and you didn't have enough money to get more: Never True 05/2025 Transportation Answer Date Recorded In the past 12 months, has l ack of transportation kept you from medical appts, meetings, work or from getting things needed for daily living? No 08/28/2024 Utilities Answer Date Recorded In the past 12 months, has t he electric, gas, oil or water company threatened to shut off services in your home? No 08/28/2024 Depression Answer Date Recorded Patient Health Questionnaire-2 Score 1 09/05/2024 Internet Access Answer Date Recorded Internet Access Q1 Yes 08/28/2024 Internet Access Q2 Not on file 08/28/2024 Comments No Sex and Gender Information Value Date Recorded Sex Assigned at Female 04/18/2022 10:15 AM EDT Legal Sex Female 10:15 AM EDT Gender Identity Female 04/18/2022 10:15 AM EDT Sexual Orientation Straight 04/18/2022 10 :15 AM EDT Last Filed Vital Signs Vital Sign Reading Time Taken Comments Blood Pressure 110/70 09/05/2024 2:43 PM EDT Pulse 80 09/05/2024 2:43 PM EDT Temperature 36.1 ??C (97 ??F) 09/05/2024 2:43 PM EDT Respiratory Rate 21 09/05/2024 2:43 PM EDT Oxygen Saturation 98% 09/05/2024 2:43 PM EDT Inhaled Oxygen Concentration - - Weight 78.7 kg (173 lb 8 oz) 09/05/2024 2:43 PM EDT Height 167.6 cm (5' 6 ) 09/05/2024 2:43 PM EDT Body Mass Index 28 09/05/2024 2:43 PM EDT Plan of Treatment Upcoming Encounters Date Type Department Care Team (Late st Contact Info) Description 01/16/2025 1:30 PM EDT Office Visit [facility] [address] [place] [address], [place] [address] Judy Pineda, OD [address] [place] [address] Health Maintenance Due Date Last Done Comments CT Colonography 1966 FIT DNA/Cologuard 1965 FIT 1965 FOBT 1965 Sigmoidoscopy 1966 Alcohol/Substance Use Screening 1978 Pneumococcal Vaccine: 50+ Years (1 of 2 - PCV) 1985 Colonoscopy 10/17/2019 10/16/2014 Colorectal Cancer Screening 10/17/2019 COVID-19 Vaccine ( season) 2024 07/19/2022, 05/27/2021, 09/14/2020 Influenza Vaccine (#1) 2024 , 03/19/2022, 02/24/2022, Additional history exists Mammogram 04/13/2024 04/13/2023, 02/18, 03/15/2022, Additional history exists Cervical Cancer Screening 08/14/2025 HPV/Cotest 08/14/2025 08/14/2024, 06/0 01/2023, 11/24/2022, Additional history exists Pap Smear 08/14/2025 08/14/2024, 06/0 01/2023, 11/24/2022, Additional history exists Depression Screening 09/05/2025 09/05/2024, 09/06/19 SDOH Screening 09/05/2025 09/05/2024 Tobacco Screening 09/05/2025 09/05/2024 DTaP/Tdap/Td Vaccines (2 - Td or Tdap) 11/16/2027 11/15/2017, 02/21/2008 RSV Patients and Patients Aged 60 years or older (1 - 1-dose 75+ series) 2041 Hepatitis B Vaccines Completed 09/24/2007, 04/26/2007, 03/26/2007 Zoster Vaccines Completed 07/21/2023, 04/29/2020 HIV Screening Completed 09/25/2024 Hepatitis C Screening Completed 09/25/2024 HIB Vaccines Aged Out No longer eligi [...] Procedure Name Priority Date/Time Associated Diagnosis Comments TSH W/REFLEX TO FT4 Routine 09/25/2024 8 :35 AM EDT Encounter for preventive care VITAMIN D,25-OH,TOTAL,IA Routine 09/25/2024 8:35 AM EDT Encounter for preventive care LIPID PANEL, STANDARD Routine 09/25/2024 8:35 AM EDT Encounter for preventive care HEPATITIS C AB W/REFL TO HCV RNA, QN, PCR Routine 09/25/2024 8:35 AM EDT Encounter for preventive care HIV 1/2 ANTIGEN/ANTIBODY, FOURTH GENERATION W/RFL Routine 09/25/2024 8:35 AM EDT Encounter for preventive care HEMOGLOBIN A1C Routine 09/25/2024 8:35 AM EDT Encounter for preventive care COMPREHENSIVE METABOLIC PANEL Routine 09/25/2024 8:35 AM EDT Encounter for preventive care CBC WITH AUTO DIFFERENTIAL Routine 09/25/2024 8:35 AM EDT Encounter for preventive care PAP SMEAR Routine 08/14/2024 3:30 PM EST HPV DNA, LOW/HIGH RISK Routine 3:30 PM EST BI MAMMOGRAM SCREENING TOMOSYNTHESIS BILATERAL Routine 04/13/2023 2:50 PM EDT HM COLONOSCOPY Routine 10/16/2014 from Last 3 Months or Most Recently Relevant to Health Maintenance Results * (ABNORMAL) Vitamin D, 25-Hydroxy, Total, Immunoassay (09/25/2024 8:35 AM EDT) Vitamin D 25-OH Total 29.3(L) >30 ng/mL [facility] Comment: Health Based Reference Values*< 20 ??ng/mL ??Glxoqegyw26-51 ng/mL ??Insufficient> 30 ??ng/mL ??Sufficient*Harsha HYDE. N Engl J Med. 2007;357:266-280There is no well-established upper level of normal vitamin Dlevels. Some laboratories use 50 ng/mL as an upper limit ofnormal. However, toxicity is patient-dependent and may occurat any level. Careful correlation with the patient'spresentation is necessary and, if there is concern forvitamin D toxicity, treatment should be consideredirrespective of the serum level.Care must be taken in interpreting Vitamin D results fromdifferent laboratories and methodologies. ??Published datademonstrated that results from patients undergoinghemodialysis may show a negative bias when tested withvarious automated 25-OH vitamin D assays when compared toLC- MS/MS.When testing samples from patients whose predominant form ofVitamin D is Vitamin D2, such as patients receiving VitaminD2 supplementation, results that are subtherapeutic shouldbe confirmed with another method such as LC-MS/MS. Blood Venous blood specimen / Unknown 09/25/2024 8:35 AM EDT 09/25/2024 11:40 AM EDT us Lety Guaman MD LAB BLOOD ORDERABLES Final Result [facility] [address] [place] [phone] * TSH with Reflex to Free T4 (09/25/2024 8:35 AM EDT) TSH reflex Free T4 0.35 0.32 - 4.0 uIU/mL [facility] Blood Venous blood specimen / Unknown 09/25/2024 8:35 AM EDT 09/25/2024 11:40 AM EDT us Lety Guaman MD LAB BLOOD ORDERABLES Final Result [facility] [address] [place] [address] [phone] * CBC auto differential (09/25/2024 8:35 AM EDT) White Blood Count 4.8 4.8 - 10.8 X10*3/uL [facility] Red Blood Count 4.83 4.20 - 5.50 X10*6/uL [facility] Hemoglobin 13.1 12.0 - 16.0 g/dl [facility] Hematocrit 39.2 37.0 - 47.0 % [facility] Mean Corpuscular Volume 81.2 80.0 - 98.0 fL [facility] Mean Corpuscular Hemoglobin 27.1 27.0 - 33.0 pg [facility] Mean Corpuscular HGB Conc 33.4 31.0 - 35.0 g/dl [facility] Red Cell Distribution Width 13.6 11.0 - 16.0 % [facility] Platelet Count 218 160 - 400 X10*3/uL [facility] Mean Platelet Volume 10.3 9.4 - 12.3 fL [facility] Neutrophils Percent Auto 65.6 45 - 73 % [facility] Imm Gran Pct Auto 0.2 0.0 - 0.4 % [facility] Lymphocytes Percent Auto 27.7 20 - 40 % [facility] Monocytes Percent Auto 5.5 2 - 11 % [facility] Eosinophils Percent Auto 0.6 0 - 4 % [facility] Basophils Percent Auto 0.4 0 - 2 % [facility] NRBC Pct Auto 0.0 0.0 - 0.2 /100WBC [facility] Neutrophils Absolute Auto 3.1 2.0 - 8.3 x10*3/uL [facility] Imm Gran Abs Auto 0.01 0.00 - 0.03 X10*3/uL [facility] Lymphocytes Absolute Auto 1.3 1.2 - 4.9 X10*3/uL [facility] Monocytes Absolute Auto 0.3 0.1 - 1.2 X10*3/uL [facility] Eosinophils Absolute Auto 0.0 0.0 - 0.4 X10*3/uL [facility] Basophils Absolute Auto 0.0 0.0 - 0.2 X10*3/uL [facility] NRBC Abs Auto 0.000 0.0 - 0.012 X10*3/uL [facility] Blood Venous blood specimen / Unknown 09/25/2024 8:35 AM EDT 09/25/2024 11:40 AM EDT us Lety Guaman MD LAB BLOOD ORDERABLES Final Result Performing Organization Address City/[facility] Co de Phone Number [facility] [address] [place] [phone] * Hepatitis C Antibody with Reflex to HCV, RNA, Quantitative, Real-Time PCR (09/25/2024 8:35 AM EDT) [facility] Hepatitis C Antibody Nonreactive Nonreactive [facility] Comment:Antibodies to HCV no t detected; does not exclude early acuteHCV infection. Blood Venous blood specimen / Unknown 09/25/2024 8:35 AM EDT 09/25/2024 11:40 AM EDT Lety Guaman MD LAB BLOOD ORDERABLES Final Result Performing Organization Address [facility] Co de Phone Number [facility] [address] [place] [phone] * HIV-1/2 Antigen and Antibodies, Fourth Generation, with Reflexes (09/25/2024 8:35 AM EDT) HIV AB/AG Nonreactive Nonreactive [facility] Comment:HIV-1 p24 Ag and/or HIV-1/HIV-2 Ab not detected.A test result that is nonreactive does not exclude thepossibility of exposure to or infection with HIV-1 and/orHIV-2. Nonreactive results in this assay for individualswith prior exposure to HIV-1 and/or HIV-2 may be due toantigen and antibody levels that are below the limit ofdetection of this assay.The ClearCycle HIV Ag/Ab Combo assay result andsupplemental assay results should be interpreted inconjunction with the patient's clinical presentation,history and other laboratory results. If the results areinconsistent with clinical evidence, additional testing issuggested to confirm the result. Blood Venous blood specimen / Unknown 09/25/2024 8:35 AM EDT 09/25/2024 11:40 AM EDT Lety Guaman MD LAB BLOOD ORDERABLES Final Result [facility] [address] [place] [phone] * Hemoglobin A1c (09/25/2024 8:35 AM EDT) Hemoglobin A1c 5.3 <6.0 % [facility] Comment:Hemoglobin A1C Refer ence Range Adults: 4.8 - 6.0 % Non diabetic: < 6.0 % Goal: < 7.0 %Additional Action Suggested: > 8.0 %Note: Hemoglobin A1c results are invalid for patients with abnormal amounts of HbF. Blood transfusions may impact the HbA1c concentration in the patient sample. Estimated Average Glucose 105 mg/dL [facility] Comment:eAG = Estimated ave rage glucose which is %A1C expressed asaverage glucose, using the formula of the C2X-YcaxueuYbjqbni Glucose study (ADAG), Diabetes Care, Vol.31,#8,2007 Blood Venous blood specimen / Unknown 09/25/2024 8:35 AM EDT 09/25/2024 11:40 AM EDT us Lety Guaman MD LAB BLOOD ORDERABLES Final Result [facility] [address] [place] [phone] * (ABNORMAL) Lipid Panel, Standard (09/25/2024 8:35 AM EDT) Triglycerides 91 <150 mg/dL [facility] Comment:Desirable Triglyceri de: less than 150 mg/dLBorderline High Triglyceride 150-199 mg/dLHigh Triglyceride: 200-499 mg/dLVery High Triglyceride: greater than or equal to 5OO mg/dL Cholesterol 211(H) <200 mg/dL [facility] Comment:Desirable Cholestero l: less than 200 mg/dLBorderline High Cholesterol: 200-239 mg/dLHigh Cholesterol: greater than 239 mg/dL LDL Cholesterol Calculated 140(H) <100 mg/dL [facility] Comment:Desirable LDL: less than 100 mg/dLNear Optimal/Above Optimal LDL: 110- 129 mg/dLBorderline High LDL: 130-159 mg/dLHigh LDL: 160-189 mg/dLVery High LDL: greater than or equal to 190 mg/dL HDL Cholesterol 53 >40 mg/dL [facility] Comment:Desirable HDL: great er than 40 mg/dL Note: This HDL assay may give artificially low results in patients with liver disease. Blood Venous blood specimen / Unknown 09/25/2024 8:35 AM EDT 09/25/2024 11:40 AM EDT us Lety Guaman MD LAB BLOOD ORDERABLES Final Result [facility] [address] [place] [phone] * (ABNORMAL) Comprehensive Metabolic Panel (09/25/2024 8:35 AM EDT) Sodium 139 135 - 145 mmol/L [facility] Potassium 4.6 3.3 - 5.1 mmol/L [facility] Chloride 106 96 - 108 mmol/L [facility] Carbon Dioxide 27 22 - 29 mmol/L [facility] Anion Gap 11(L) 12 - 20 [facility] Urea Nitrogen (BUN) 19(H) 9 - 16 mg/dL [facility] Creatinine, Serum 0.87 0.5 - 1.4 mg/dL [facility] Estimated Glomerular Filt Rate >60 [facility] Comment:Chronic Kidney Disea se: Estimated GFR < 60 mL/min/1.90f9Jjgaqy Kidney Disease: Estimated GFR < 15 mL/min/1.73m2 Glucose 97 60 - 115 mg/dL [facility] Calcium 9.4 8.4 - 10.2 mg/dL [facility] Bilirubin, Total 0.5 0.0 - 1.0 mg/dL [facility] Aspartate Amino Transferase 26 5 - 31 U/L [facility] Alanine Aminotransferase 24 0 - 31 U/L [facility] Total Protein 7.1 6.5 - 8.0 g/dL [facility] Albumin Level 4.5 3.5 - 5.0 g/dL [facility] Alkaline Phosphatase 63 39 - 117 U/L [facility] Blood Venous blood specimen / Unknown 09/25/2024 8:35 AM EDT 09/25/2024 11:40 AM EDT Lety Guaman MD LAB BLOOD ORDERABLES Final Result [facility] [address] [place] [phone] * HPV DNA, Low/High Risk (08/14/2024 3:30 PM EST) HPV High Risk Negative Negative [facility] HPV Genotype 16 Negative Negative [facility] HPV Genotype 18 Negative Negative [facility] Comment:HPV testing performe d at [facility] (CLIA#[id number])[address] [address].Testing for HPV was performed using the Gerber ZANDRA 6800system. The presence of HPV in the female genital tract isassociated with a number of diseases, including cervicalcarcinoma. The HPV DNA high risk pool tests for HPV 31, 33,35, 39, 45, 51, 52, 56, 58, 59, 66 and 68. The testing forHPV 16 and 18 genotypes has also been performed. A positiveresult indicates detection of nucleic acid sequences fromone or more subtypes, whereas a negative result indicatessuch sequences were not detected. 08/14/2024 3:30 PM EST 08/15/2024 8:48 AM EST us Generic External Data Provider LAB BLOOD ORDERAB LES Final Result Performing Organization Address City/State/[facility] Co de Phone Number [facility] [address] [place] [phone] * Pap Smear (08/14/2024 3:30 PM EST) 08/14/2024 3:30 PM EST 08/15/2024 8:10 AM EST Narrative [facility] - 08/21/2024 1:17 PM EST ----- ------- Name: Cami Hernandez ?Age/Sex: 59/F ? : 1965 Unit#: [id number] ?? Attend Dr: Kannan Judd MD ?Re08/14/24 ?Status: DEP REF ? Location: HO.LNP ?Disch: ? ----- ------- SPEC : [id number] ? RECD: 08/15/24 ? STATUS: ??SOUT ? REQ NUM: [id number] ? ROCKY: 08/14/24-557 ? SUBM DR: Kannan Judd MD ? ENTERED: ??08/15/24 ?SP TYPE: Pap Smr ?OTHR DR: [facility] ? ORDERED: ??Pap Smear ? Interpretation ?? Satisfactory for evaluation. ?? Negative for intraepithelial lesion or malignancy. ? HPV High Risk: ??Negative ? HPV Genotyping 16: ??Negative ?? HPV Genotyping 18: ??Negative ?Clinical Information LMP: Previous PAP test: 2023, abnormal (NINO 3, HPV+) Other surgery: Other history: ? Material Received ?? ThinPrep-Cervical Copies To: ?? [facility] ?? [address] ?? [place] [address] ? Kannan Judd MD ?? [facility] ?? [address] ?? [place] [address] ?? [phone] ----- ------- Signed (signature on file) PEDRO Maciel ([facility]) 08/21/24 1317 ? ----- ------- ? END OF REPORT ? us Generic External Data Provider LAB CYTOLOGY VELVET MACE Final Result [facility] [address] [facility] [place] [address] [phone] * BI Mammogram Screening Tomosynthesis Bilateral (04/13/2023 2:50 PM EDT) Anatomical Region Laterality Modality Breast Bilateral Mammography 04/13/2023 2:50 PM EDT Narrative 05/01/2023 6:22 AM EST ? [facility] ? [address] ?[place] [address] ? Mammography Report ? Signed ? Patient: Hernandez,Cami ?MR#: [id number] ?? 7 ? : 1965 ?Acct:[id number] ? Age/Sex: 58 / F ?ADM Date: 04/13/23 ? Loc: HO.MAMMO ? Attending Dr: Lety Guaman MD ? Ordering Physician: Lety Coronado MD ?Results: ?? 2Benign Findings ? Date of Service: 04/13/23 ?Follow Up: 1 Year From Orig ?? inal Mammogram ? Procedure(s): MM tomosynthesis screening BI ?? Accession Number(s): [id number] ? cc: Lety Coronado MD ? EXAMINATION: [...] by Ava Newton MD in OV> ? 05/01/23617 ? DD/ 1450 ? TD/TT: ? Well Puller: ? Procedure Note Donotuseinterpreter, Image - 05/01/2023 [facility] [address] [place] [address] Mammography Report Signed Patient: Cami HernandezMR#: [id number] 7 : 1965Acct:[id number] Age/Sex: 58 / FADM Date: 04/13/23 Loc: HO.MAMMO Attending Dr: Lety Guaman MD Ordering Physician: Lety Coronado MDResults: 2Benign Findings Date of Service: 04/13/23Follow Up: 1 Year From Orig inal Mammogram Procedure(s): MM tomosynthesis screening BI Accession Number(s): [id number] cc: Lety Coronado MD EXAMINATION: MM SCREENING [...] in OV> 05/01/23 0618 DD/ 1450 TD/TT: Well Puller: Lety Guaman MD IMG BI PROCEDURES Fin al Result * Hm Colonoscopy (10/16/2014) Colonoscopy Normal Normal 10/16/2014 Narrative Yue Olea - 10/16/2014 11:32 AM EDT Recommended 5 year follow up ( Dr. Torres) Historical Provider HEALTH MAINTENANCE Final Result from Last 3 Months or Most Recently Relevant to Health Maintenance Insurance C3 Care Teams Oriental Medicine Practitioner Relationship Specialty Start Date End Date Lety Coronado MD [address] [place] [address] PCP - General Family Medicine 02/28/18 Agueda Barahona Instant Potato Processing SupervisorMarketing Technologist 11/16/23
--- OUTSIDE RECORDS SUMMARY | 2024-10-14 12:38 | XMS_ITS | Encounter Summary ---
Author Organization [employer] Address [address] [facility] 7t [place] [address] Care Team Providers Care Furniture Servicer Name Role Phone Lety Coronado MD Primary Care Provide r Reason for Visit * Reason Onset Date Comments Letter for School/Work 12/11/2023 Encounter Details Date Type Department Care Team ([facility] st Contact Info) Description 12/11/[address] [facility] MEDICINE [address] [place] [address] Lety Coronado MD [address] [place] [address] Letter for School/Work Social History Tobacco Use [...] patient to return my call LVM to Deburring Technician-- patient will need to come in to put in request. * Telephone Encounter - Shanell Joiner - 12/11/2023 10:41 AM EDT Tc from [facility] with N (adult day care worker) states pt is requesting a letter stating pets in home is for emotional support due to management requesting a letter to keep pets. documented in this encounter Plan of Treatment Upcoming Encounters Date Type Department Care Team (Late st Contact Info) Description 01/16/2025 1:30 PM EDT Office Visit [facility] OPTOMETRY [address] [place] [address] Judy Pineda, OD [address] [place] [address] documented as of this encounter Visit Diagnoses Not on filedocumented in this encounter Additional Health Concerns Assessment Noted Time PHQ-9 Depression Total Score: 8 02/09/20 2:04 PM EDT documented as of this encounter Care Teams Furniture Servicer Relationship Specialty Start Date End Date Lety Coronado MD [address] [place] [address] PCP - General Family Medicine 02/28/18 Agueda Barahona No Bake MolderManager Facility 11/16/23 documented as of this encounter
== END 2024-10-14 10:41 | disposition home or self-care (01) ==
LOC: HO.MAMMO 10:40
PROVIDERS: PCP Internal Medicine; Visit Provider Obstetrics & Gynecology
DX: Z12.31 Encounter for screening mammogram for malignant neoplasm of breast (principal)
CPT/HCPCS: 77063; 77067

== ENCOUNTER → 2024-10-14 11:15 | Outpatient (BNV) | payer MEDICAID, SELFPAY | PROVIDERS: PCP Internal Medicine; Visit Provider Internal Medicine | DX: Z12.31 Encounter for screening mammogram for malignant neoplasm of breast (principal) | CPT/HCPCS: 77063; 77067 ==

== ENCOUNTER 2025-05-19 10:33 | Outpatient (AMB) | payer MEDICAID, SELFPAY ==
[2025-05-19 11:46] VITALS: BP 112/80; PULSE 74; RESP 16; O2SAT 98; BMI 27.5
--- NOTE | 2025-05-19 11:46 | MHC.OFFVIS ---
Vital Signs 05/19/25 11:46 Height 5 ft 5 in Weight 165 lb BMI 27.5 BP 112/80 Blood Pressure Location Lt brachial Position Sitting Respiration 16 Pulse 74 Pulse Oximetry (%) 98 Oxygen Delivery Method Room Air Intake Visit Reasons: chronic migraine Allergies codeine (Codeine) Allergy (Mild, Verified 05/19/25 11:47) RASH Penicillins Allergy (Mild, Verified 05/19/25 11:47) RASH penicillin V Allergy (Unknown, Verified 05/19/25 11:47) hives tape adhesive Allergy (Mild, Uncoded 08/14/24 15:12) rash HPI Comments Details: Cami is a 60-year-old female patient with a past history asthma, memory decline fibromyalgia, arthritis, and GERD here today for headache evaluation. It appears that she did see Dr. Jean-Baptiste in the past last in November 2022. She has been getting Botox therapy for management migraine and has been doing well on this treatment in addition to amitriptyline. She has been down to having only 1-2 migraine headaches per month while on therapy. She told me today that she eventually stopped seeing Dr. Jean-Baptiste because her migraines were controlled. She had done well off of the Botox therapy for some time for unfortunately her headaches returned over the course of the last few months now requiring more frequent. Her headaches are very similar to her prior headaches. She has been getting migraine-type headaches on average 3 days per week. These headaches can last 6 hours up to a full day and can reach a 9/10 in severity. They are accompanied by light and sound sensitivity but she denies any visual auras, vision changes, or nausea. These migraine headaches are generally bilateral starting at the occipital areas and gradually moving around however areas. In addition to her migraine-type headaches as described above, she has mild holocephalic headaches without migrainous features referring on average 4 days per week. She is currently taking amitriptyline 75 mg at bedtime which helps her to sleep and she does overall report good sleep. The amitriptyline however has not been extremely helpful in terms headaches. [facility] Medical History Cervical high risk human papillomavirus (HPV) DNA test positive Memory loss Peripheral neuropathy Arthritis IBS (irritable bowel syndrome) Bipolar 1 disorder Depression Anxiety Acid reflux Migraine Asthma Osteoarthritis Fibromyalgia Surgical History History of eyelid surgery H/O dilation and curettage History of bilateral tubal ligation H/O left inguinal hernia repair History of cholecystectomy Social History Household Members Other:: daughter Housing: Apartment Alcohol intake: never Patient Tobacco Use Status: Former Tobacco user Current occupational status: disabled Sexual orientation: Straight/Heterosexual Gender identity: Female Review of Systems Const All systems reviewed & are unremarkable except as noted in HPI and below Physical Exam Vital Signs: Last Vital Signs Pulse 74 05/19/25 11:46 Resp 16 05/19/25 11:46 BP 112/80 05/19/25 11:46 Pulse Ox 98 05/19/25 11:46 Oxygen Delivery Method Room Air 05/19/25 11:46 BMI result Body Mass Index 27.5 Const General: cooperative, healthy appearing, comfortable and no acute distress Nutritional Appearance: well nourished Orientation/consciousness: patient oriented x3 Limitations: no limitations HEENT Head: Yes normal to inspection and Yes normocephalic Eyes General: appearance normal, both eyes and all related structures Visual Fallon: normal visual fallon by confrontation Alignment and Position: alignment normal Periorbital: periorbital findings normal Eyelids: Yes eyelids normal Conjunctivae: conjunctivae normal Sclerae: sclerae normal Neck Neck: Yes normal visual inspection and Yes full ROM Back/Spine/Pelvis Other: Bilateral upper trapezius tightening Neuro General: patient oriented x3 and deep tendon reflexes 2+ bilaterally Cranial nerves: Yes CN's II-XII intact bilaterally and Yes Facial sensation intact/muscles of mastication intact Cognition (Neuro): normal cognition Gait exam (Neuro): Normal gait present Motor exam (neuro): 5/5 motor strength present throughout and no tremor noted Sensory Exam: double simultaneous stimulation for sensation normal Romberg Test: Negative Pupils: Normal pupillary reactivity/response: bilateral Psych Appearance: grossly normal Mental Status: mental status grossly normal Speech and movement: Normal speech and movement present and Clear speech present Affect: normal affect Attitude: cooperative Thought process: Normal thought process present Thought content: Normal thought content present Insight: Good insight present (Psych) Judgement: Good judgement present (Psych) Assessment & Plan Assessment & Plan (1) Chronic migraine without aura without status migrainosus, not intractable: Code(s): G43.709 - Chronic migraine without aura, not intractable, without status migrainosus Category: Medical Plan Cami is a 60-year-old female patient with a past history asthma, memory decline fibromyalgia, arthritis, and GERD here today for headache evaluation. Current headache description fits criteria for chronic migraine and in the past she has done well with Botox therapy. She is already currently taking amitriptyline and she is not a good candidate for other first-line agents including topiramate which can cause memory decline which she has already reported and should not take propranolol due to history of asthma. I would like to start Botox therapy chronic migraine for mentioned as soon as we can establish a prior authorization and for her acute therapy, start sumatriptan 100 mg by mouth as needed. -initiate prior authorization for Botox therapy 155mg every 12 weeks for chronic migraine -start trial of sumatriptan 100 mg as needed for acute therapy -book patient in the clinic for next available once we obtain prior authorization for her procedure. Medications: New onabotulinumtoxinA (Botox) 155 units IM ONCE 1 ea 3RF 12 weeks sumatriptan succinate take 1 tab at onset of headache; if no relief, may repeat 1 tab after at least 2 hrs; max = 2 tabs/24 hrs PO 14 tabs 3RF 30 days Coding Level of Care Code Est Pt Level 4 (86429) Diagnoses Chronic migraine without aura without status migrainosus, not intractable G43.709
--- OUTSIDE RECORDS SUMMARY | 2025-05-19 13:22 | XMS_ITS | Encounter Summary ---
Author Organization [employer] Address [address] [place] [address] 7t [place] [address] Care Team Providers Care Watch Parts Grinder Name Role Phone Lety Coronado MD Primary Care Provide r Reason for Visit * Reason Comments Med Change Request Encounter Details Date Type Department Care Team (Late st Contact Info) Description 08/23/2022 Refill [facility] MEDICINE [address] [place] [address] Anette Lopez MD [address] [place] [address] Gastroesophageal reflux disease without esophagitis Social History [...] as of this encounter Plan of Treatment Not on file documented as of this encounter Visit Diagnoses Diagnosis Gastroesophageal reflux disease without esophagitis Esophageal reflux documented in this encounter Additional Health Concerns Assessment Noted Time PHQ-9 Depression Total Score: 4 07/19/19 23 9:39 AM EST documented as of this encounter Care Teams Watch Parts Grinder Relationship Specialty Start Date End Date Lety Coronado MD [address] [place], [place] [phone] PCP - General Family Medicine 02/28/18 Agueda Barahona Environmental Services AssociateSewer System Supervisor 11/16/23 documented as of this encounter
--- OUTSIDE RECORDS SUMMARY | 2025-05-19 13:22 | XMS_ITS | Encounter Summary ---
Author Organization [employer] Address [address] [place] [address] 7t [place] [address] Care Team Providers Care Plant Breeder Scientist Name Role Phone Lety Coronado MD Primary Care Provide r Encounter Details Date Type Department Care Team ([facility] st Contact Info) Description 11/01/2022 Abstract [facility] MEDICINE [address] [place] [address] Lety Coronado MD [address] [place] [address] Social History Tobacco Use Types Packs/Day Years [...] on file documented as of this encounter Procedures Procedure Name Priority Date/Time Associated Diagnosis Comments COLONOSCOPY Routine 10/16/2014 documented in this encounter Results * Colonoscopy (10/16/2014) Colonoscopy Normal Normal 10/16/2014 Narrative Emmie Yue - 10/16/2014 11:32 AM EDT Recommended 5 year follow up ( Dr. Torres) us Historical Provider HEALTH MAINTENANCE Final Result documented in this encounter Visit Diagnoses Not on filedocumented in this encounter Additional Health Concerns Assessment Noted Time PHQ-9 Depression Total Score: 4 07/19/19 23 9:39 AM EST documented as of this encounter Care Teams Plant Breeder Scientist Relationship Specialty Start Date End Date Lety Coronado MD [address] [place] [address] PCP - General Family Medicine 02/28/18 Agueda Barahona Student Services DeanRetail General Manager 11/16/23 documented as of this encounter
--- OUTSIDE RECORDS SUMMARY | 2025-05-19 13:22 | XMS_ITS | Encounter Summary ---
Author Organization [employer] Address [address] [facility] 7t [place] [address] Care Team Providers Care Babbitt Spinner Name Role Phone Lety Coronado MD Primary Care Provide r Reason for Visit * Reason Onset Date Comments Letter for School/Work 04/07/2023 Encounter Details Date Type Department Care Team ([facility] st Contact Info) Description 04/07/[address] 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 documented in this encounter Plan of Treatment Not on file documented as of this encounter Visit Diagnoses Not on filedocumented in this encounter Additional Health Concerns Assessment Noted Time PHQ-9 Depression Total Score: 8 02/09/20 23 2:04 PM EDT documented as of this encounter Care Teams Babbitt Spinner Relationship Specialty Start Date End Date Lety Coronado MD [address] [place] [address] PCP - General Family Medicine 02/28/18 Agueda Barahona Crankshaft BalancerRepair Specialist 11/16/23 documented as of this encounter
--- OUTSIDE RECORDS SUMMARY | 2025-05-19 13:22 | XMS_ITS | Encounter Summary ---
Author Organization [employer] Address [address] [place] [address] 7t [place] [address] Care Team Providers Care Associate Director Of Biostatistics Name Role Phone Lety Coronado MD Primary Care Provide r Reason for Visit * Reason Onset Date Comments Med Refill 09/21/2022 Encounter Details Date Type Department Care Team ([facility] st Contact Info) Description 09/21/2022 Telephone [facility] MEDICINE [address] [place] [address] Lety Coronado MD [address] [place] [address] Med Refill Social History Tobacco Use Types [...] Tramadol 50 mg tablet Please sent to [facility]/pharmacy #[id number] - [place] - [address] [place] [address] documented in this encounter Plan of Treatment Not on file documented as of this encounter Visit Diagnoses Not on filedocumented in this encounter Additional Health Concerns Assessment Noted Time PHQ-9 Depression Total Score: 4 07/19/19 23 9:39 AM EST documented as of this encounter Care Teams Associate Director Of Biostatistics Relationship Specialty Start Date End Date Lety Coronado MD [address] [place] [address] PCP - General Family Medicine 02/28/18 Agueda Barahona Hunter GuideTape Duplicator 11/16/23 documented as of this encounter
--- OUTSIDE RECORDS SUMMARY | 2025-05-19 13:22 | XMS_ITS | Encounter Summary ---
Author Organization [employer] Address [address] [place] [address] [address]t [place] [address] Care Team Providers Care Alignment Technician Name Role Phone Lety Coronado MD Primary Care Provide r Reason for Visit * Reason Comments Med Refill Encounter Details Date Type Department Care Team (Late st Contact Info) Description 08/23/[address] [facility] MEDICINE [address] [place] [address] Anette Lopez MD [address] [place] [address] Chronic rhinitis Social History Tobacco Use Types [...] documented as of this encounter Care Teams Alignment Technician Relationship Specialty Start Date End Date Lety Coronado MD [address] [place], [place] [phone] PCP - General Family Medicine 02/28/18 Agueda Barahona Manufacturing Job TitlesVarious Exceptionalities Teacher 11/16/23 documented as of this encounter
--- OUTSIDE RECORDS SUMMARY | 2025-05-19 13:22 | XMS_ITS | Encounter Summary ---
Author Organization [employer] Address [address] [place] [address] 7t [place] [address] Care Team Providers Care Executive Services Administrator Name Role Phone Lety Coronado MD Primary Care Provide r Encounter Details Date Type Department Care Team (Late st Contact Info) Description 12/01/2022 Orders Only [facility] MEDICINE [address] [place] [address] Tiana Obando, RN [address] [place] [address] Social History Tobacco Use Types Packs/Day Years [...] documented as of this encounter Care Teams Executive Services Administrator Relationship Specialty Start Date End Date Lety Coronado MD [address] [place] [address] PCP - General Family Medicine 02/28/18 Agueda Barahona Electronics Maintenance TechnicianRoad Conductor 11/16/23 documented as of this encounter
--- OUTSIDE RECORDS SUMMARY | 2025-05-19 13:23 | XMS_ITS | Encounter Summary ---
Author Organization [employer] Address [address] [facility] 7t [place] [address] Care Team Providers Care Opticianry Teacher Name Role Phone Lety Coronado MD Primary Care Provide r Reason for Visit * Reason Comments Med Refill Encounter Details Date Type Department Care Team (Late st Contact Info) Description 05/22/2023 Refill [facility] MEDICINE [address] [place], [place] [phone] Anette Lopez MD [address] [place] [address] Chronic rhinitis Social History Tobacco Use Types [...] documented as of this encounter Care Teams Opticianry Teacher Relationship Specialty Start Date End Date Lety Coronado MD [address] [place] [address] PCP - General Family Medicine 02/28/18 Agueda Barahona Farm AppraiserPourer Off 11/16/23 documented as of this encounter
--- OUTSIDE RECORDS SUMMARY | 2025-05-19 13:23 | XMS_ITS | Encounter Summary ---
Author Organization [employer] Address [address] [place] [address] 7t [place] [address] Care Team Providers Care Laboratory Analyst Name Role Phone Lety Coronado MD Primary Care Provide r Reason for Visit * Reason Onset Date Comments Durable Medical Equipment 09/21/2022 Encounter Details Date Type Department Care Team (Late st Contact Info) Description 09/21/2022 Refill [facility] MEDICINE [address] [place] [address] Lety Coronado MD [address] [place] [address] Chronic low back pain, unspecified back pain [...] requested to provider. Please contact pt at [phone] documented in this encounter Plan of Treatment Not on file documented as of this encounter Visit Diagnoses Diagnosis Chronic low back pain, unspecified back pain laterality, unspecified whether sciatica present- Primary documented in this encounter Additional Health Concerns Assessment Noted Time PHQ-9 Depression Total Score: 4 07/19/19 23 9:39 AM EST documented as of this encounter Care Teams Laboratory Analyst Relationship Specialty Start Date End Date Lety Coronado MD [address] [place] [address] PCP - General Family Medicine 02/28/18 Agueda Barahona Paper Cone Drying Machine OperatorBulbs Farmworker 11/16/23 documented as of this encounter
--- OUTSIDE RECORDS SUMMARY | 2025-05-19 13:23 | XMS_ITS | Encounter Summary ---
Author Organization [employer] Address [address] [facility] 7t [place] [address] Care Team Providers Care Sharepoint Application Developer Name Role Phone Lety Coronado MD Primary Care Provide r Reason for Visit * Reason Onset Date Comments Appointment Request 03/06/2024 Call Back Request 03/06/2024 Encounter Details Date Type Department Care Team ([facility] st Contact Info) Description 03/06/2024 Telephone [facility] MEDICINE [address] [place] [address] Lety Coronado MD [address] [place], [place] [phone] Appointment Request; Call Back Request Social History [...] documented as of this encounter Care Teams Sharepoint Application Developer Relationship Specialty Start Date End Date Lety Coronado MD [address] [place] [address] PCP - General Family Medicine 02/28/18 Agueda Barahona Airline PilotLaunch Leader 11/16/23 documented as of this encounter
--- OUTSIDE RECORDS SUMMARY | 2025-05-19 13:23 | XMS_ITS | Encounter Summary ---
Author Organization [employer] Address [address] [facility] 7t [place] [address] Care Team Providers Care Physician/Ophthalmologist Name Role Phone Lety Coronado MD Primary Care Provide r Reason for Visit * Reason Onset Date Comments Letter for School/Work 12/11/2023 Encounter Details Date Type Department Care Team ([facility] st Contact Info) Description 12/11/2023 Telephone [facility] MEDICINE [address] [place] [address] Lety Coronado MD [address] [place] [address] Letter for School/Work Social History Tobacco Use [...] patient to return my call LVM to Busboy-- patient will need to come in to put in request. * Telephone Encounter - Shanell Joiner - 12/11/2023 10:41 AM EDT Tc from [place] with [facility] (healthcare consultant) states pt is requesting a letter stating [...] documented as of this encounter Care Teams Physician/Ophthalmologist Relationship Specialty Start Date End Date Lety Coronado MD [address] [place] [address] PCP - General Family Medicine 02/28/18 Agueda Barahona Heat Treating OperatorPlanned Giving Officer 11/16/23 documented as of this encounter
--- OUTSIDE RECORDS SUMMARY | 2025-05-19 13:23 | XMS_ITS | Clinical Summary ---
Author Organization [employer] Address [address] [facility] [address] [place] [address] Care Team Providers Care Supervisor Transcribing Operators Name Role Phone Lety Coronado MD Primary Care Provide r Allergies Active Allergy Reactions Criticality Noted Date Comments Codeine Unknown 06/15/2010 Erythromycin 06/15/2010 Morphine 06/15/2010 Other Rash Low 11/02/2023 Penicillins Unknown 06/15/2010 Medications mirtazapine (Remeron) 45 [...] SEA NECESARIO 18 g 1 4 Active tiZANidine (Zanaflex) 4 MG tabletIndication [...] EVERY DAY 90 capsule 1 5 Active cyclobenzaprine (Flexeril) 10 MG tabletIndication s:Chronic midline thoracic back pain Take 1 tablet (10 mg) by mouth 3 times daily for 20 days. 60 tablet 5 Active lidocaine (Lidoderm) 5 % patchIndications :Back pain, unspecified back location, unspecified back pain laterality, unspecified chronicity APLIQUAR UN PARCHE A DIARIO Y DEJAR HASTA 12 HORAS AL LUNA 30 patch 3 5 Active SUMAtriptan (Imitrex) 100 MG tabletIndication s:Chronic migraine without aura without status migrainosus, not intractable TAKE 1 TABLET BY MOUTH AT ONSET OF HEADACHE & EVERY 4 HOURS NEEDED UP TO TWICE A DAY FOR 30 DAYS 9 tablet 1 5 Active busPIRone (Buspar) 30 MG tablet TOME 1 TABLETA POR V A ORAL DOS VECES AL D A 5 Active cloNIDine (Catapres) 0.1 MG tablet TAKE 1 TABLET BY MOUTH TWICE A DAY NEEDED FOR PANIC SYMPTOMS 5 Active hydrOXYzine HCl (Atarax) 50 MG tablet TAKE 1 TABLET BY MOUTH EVERY 8 HOURS NEEDED FOR ANXIETY/INSOMNIA . Active LORazepam (Ativan) 1 MG tablet TOME 1 TABLETA POR V A ORAL A DIARIO CUANDO SEA NECESARIO PARA LA ANSIEDAD. UP TO 15 TIMES PER MONTH 5 Active Active Problems Problem Noted Date Diagnosed Date Pes anserinus bursitis of both knees 02/22/2025 Assessment & Plan (02/22/2025 11:38 AM EDT): Advised to elevate legs, apply ice to affected knees for about 15 minutes. Refer to PT Take meloxicam daily x 1 to 2 weeks + Tylenol as needed breakthrough pain. Advised to contact a puncture and follow-up with PCP, may need referral to orthopedics for intra-articular injection. 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 She declines NSAIDS due to [...] AM EST): Pt currently seeing psychiatry and [facility]. 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 Asthma 06/30/2017 Assessment & Plan (12/20/2023 4:48 PM EDT): Fairly control Patient educated to avoid asthma triggers Albuterol inhaler renewed Benzodiazepine dependence, continuous ([facility]) 06/30/2017 Urinary tract infectious disease 06/30/2017 Resolved Problems Problem Noted Date Diagnosed Date Resolved Date Urinary incontinence 06/30/2017 025 Encounters Date Type Department Care Team Description 03/05/2025 Orders Only [facility] [address] [place] [phone] Lety Coronado MD Chronic migraine without aura without status migrainosus, not intractable (Primary Dx) 02/28/2025 Telephone [facility] [address] [place] [address] Lety Coronado MD Referral 02/28/2025 Outside Procedure [facility] [address] [place] [address] Wyatt Pinedan, OD Presbyopia (Primary Dx) 02/26/2025 9:30 AM EDT Office Visit [facility] [address] [place] [address] Wyatt Pinedan, OD Hyperopia of both eyes (Primary Dx) 02/24/2025 Orders Only [facility] [address] [place] [address] Lety Coronado MD Chronic midline thoracic back pain (Primary Dx) 02/24/2025 Telephone [facility] [address] [place] [phone] Lety Coronado MD Medication Question 02/22/2025 11:00 AM EDT Office Visit [facility] [address] [place] [phone] Anette Lopez MD Pes anserinus bursitis of both knees (Primary Dx) 02/22/2025 Travel 02/21/2025 Telephone [facility] [address] [place] [address] Lety Coronado MD Nurse Triage from Last 3 Months Immunizations Immunization Administration Dates Next Due Hep B, adult [...] Sign Reading Time Taken Comments Blood Pressure 116/82 02/22/2025 11:12 AM EDT Pulse 99 02/22/2025 11:12 AM EDT Temperature 36.4 C (97.5 F) 02/22/2025 11:12 AM EDT Respiratory Rate 21 02/22/2025 11:12 AM EDT Oxygen Saturation 97% 02/22/2025 11:12 AM EDT Inhaled Oxygen Concentration - - Weight 76.3 kg (168 lb 3.2 oz) 02/22/2025 11:12 AM EDT Height 167.6 cm (5' 6 ) 02/22/2025 11:12 AM EDT Body Mass Index 27.15 02/22/2025 11:12 AM EDT Plan of Treatment Health Maintenance Due Date Last Done Comments CT Colonography 1966 FIT DNA/Cologuard 1966 FIT 1966 FOBT 1965 Sigmoidoscopy 1966 Disability Screening 1966 Alcohol/Substance Use Screening 1978 Pneumococcal Vaccine: 50+ Years (1 of 2 - PCV) 1985 RSV Patients and Patients Aged 60 years or older (1 - Risk 50-74 years 1-dose series) 02/08/2016 COVID-19 Vaccine ( - season) 2025 07/19/2022, 05/27/2021, 09/14/2020 Influenza Vaccine (#1) 2025 , 03/19/2022, 02/24/2022, Additional history exists Cervical Cancer Screening 08/14/2025 HPV/Cotest 08/14/2025 08/14/2024, 06/0 01/2023, 11/24/2022, Additional history exists Pap Smear 08/14/2025 08/14/2024, 06/0 01/2023, 11/24/2022, Additional history exists Depression Screening 09/05/2025 09/05/2024, 09/06/19 25 SDOH Screening 09/05/2025 09/05/2024 Mammogram 10/14/2025 10/14/2024, 03/20, 03/15/2022, Additional history exists Tobacco Screening 02/22/2026 02/22/2025 DTaP/Tdap/Td Vaccines (2 - Td or Tdap) 11/16/2027 11/15/2017, 02/21/2008 Colonoscopy 05/10/2033 05/10/2023, 04/20, 10/16/2014 Colorectal Cancer Screening 05/10/2033 Hepatitis B Vaccines Completed 09/24/2007, 04/26/2007, 03/26/2007 [...] patient's age to complete this topic Meningococcal B Vaccine Aged Out No l onger eligible based on patient's age to complete [...] Comments BI MAMMOGRAM SCREENING TOMOSYNTHESIS BILATERAL Routine 10/14/2024 10:50 AM EDT HEPATITIS C AB W/REFL TO HCV RNA, QN, PCR Routine 09/25/2024 8:35 AM EDT Encounter for preventive care HIV 1/2 ANTIGEN/ANTIBODY, FOURTH GENERATION W/RFL Routine 09/25/2024 8:35 AM EDT Encounter for preventive care HPV DNA, LOW/HIGH RISK Routine 3:30 PM EST PAP SMEAR Routine 08/14/2024 3:30 PM EST HM COLONOSCOPY Routine 05/10/2023 from Last 3 Months or Most Recently Relevant to Health Maintenance Results * BI Mammogram Screening Tomosynthesis Bilateral (10/14/2024 10:50 AM EDT) Anatomical Region Laterality Modality Breast Bilateral Mammography 10/14/2024 10:5 0 AM EDT Narrative 10/20/2024 2:21 PM EDT [facility] [address] [place], [place] [address] Mammography Report Signed Patient: Cami Hernandez MR#: [id number] 7 : 1965 Acct:[id number] Age/Sex: 59 / F ADM Date: 10/14/24 Loc: HO.MAMMO Attending Dr: Kannan Judd MD Ordering Physician: Kannan Judd MD Results: 2Benign Findings Date of Service: 10/14/24 Follow Up: 1 Year From Orig inal Mammogram Procedure(s): MM tomosynthesis screening BI Accession Number(s): [id number] cc: Lety Coronado MD; Kannan Judd MD EXAMINATION: MM SCREENING DIGITAL BREAST TOMOSYNTHESIS, BILATERAL CLINICAL INFORMATION: Screening. Asymptomatic. COMPARISON: Mammography: Comparison is made with available priors TECHNIQUE: Digital breast mammography with tomosynthesis is performed in both the craniocaudal and mediolateral oblique views along with computer-aided detection (CAD). FINDINGS: There are scattered areas of fibroglandular density (ACR BI-RADS breast composition Category b). Right marker clip. There are no significant masses, abnormal calcifications, or other abnormalities. MM/MM tomosynthesis screening BI IMPRESSION: No mammographic evidence of malignancy. ASSESSMENT: BI-RADS BI-RADS 2 - Benign Findings RECOMMENDATION: Routine annual mammography screening. 1 year F/U This examination should not preclude the clinical evaluation of a suspicious palpable abnormality. This patient's information was entered into a reminder system with a target due date for their next mammogram. Electronically signed by: Louise Brooks DO 10/20/2024 02:18 PM EDT Dictated By: Louise Brooks DO Signed By: <Electronically signed by Louise Brooks DO in OV> 10/20/24 1418 DD/ 1050 TD/TT: 10/14/24 [address] Boring Machine Operator: Procedure Note Donotuseinterpreter, Image - 10/20/2024 [facility] [address] [place] [address] Mammography Report Signed Patient: Cami HernandezMR#: [id number] 7 : 1965Acct:[id number] Age/Sex: 59 / FADM Date: 10/14/24 Loc: HO.MAMMO Attending Dr: Kannan Judd MD Ordering Physician: Kannan Judd MDResults: 2Benign Findings Date of Service: 10/14/24Follow Up: 1 Year From Orig ina Mammogram Procedure(s): MM tomosynthesis screening BI Accession Number(s): [id number] cc: Lety Coronado MD; Kannan Judd MD EXAMINATION: MM SCREENING DIGITAL BREAST TOMOSYNTHESIS, BILATERAL CLINICAL INFORMATION: Screening. Asymptomatic. COMPARISON: Mammography: Comparison is made with available priors TECHNIQUE: Digital breast mammography with tomosynthesis is performed in both the craniocaudal and mediolateral oblique views along with computer-aided detection (CAD). FINDINGS: There are scattered areas of fibroglandular density (ACR BI-RADS breast composition Category b). Right marker clip. There are no significant masses, abnormal calcifications, or other abnormalities. MM/MM tomosynthesis screening BI IMPRESSION: No mammographic evidence of malignancy. ASSESSMENT: BI-RADS BI-RADS 2 - Benign Findings RECOMMENDATION: Routine annual mammography screening. 1 year F/U This examination should not preclude the clinical evaluation of a suspicious palpable abnormality. This patient's information was entered into a reminder system with a target due date for their next mammogram. Electronically signed by: Louise Brooks DO 10/20/2024 02:18 PM EDT Dictated By: Louise Brooks DO Signed By: <Electronically signed by Louise Brooks DO in OV> 10/20/24 1418 DD/ 1050 TD/TT: 10/14/24 [address] Boring Machine Operator: [facility] External Provider IMG BI PROCEDURES Edited Result - Final * Hepatitis C Antibody with Reflex to HCV, RNA, Quantitative, Real-Time PCR (09/25/2024 8:35 AM EDT) Hepatitis C Antibody Nonreactive Nonreactive [facility] Comment:Antibodies to HCV no t detected; does not exclude early acuteHCV infection. Blood Venous blood specimen / Unknown 09/25/2024 8:35 AM EDT 09/25/2024 11:40 AM EDT us Lety Guaman MD LAB BLOOD ORDERABLES Final Result Performing Organization Address [facility]/ZIP Co de Phone Number [facility] [address] [place] [address] [phone] * HIV-1/2 Antigen and Antibodies, Fourth Generation, with Reflexes (09/25/2024 8:35 AM EDT) Pathologist [facility] HIV AB/AG Nonreactive Nonreactive [facility] Comment:HIV-1 p24 Ag and/or HIV-1/HIV-2 Ab not detected.A test result that is nonreactive does not exclude thepossibility of exposure to or infection with HIV-1 and/orHIV-2. Nonreactive results in this assay for individualswith prior exposure to HIV-1 and/or HIV-2 may be due toantigen and antibody levels that are below the limit ofdetection of this assay.The [employer] HIV Ag/Ab Combo assay result andsupplemental assay results should be interpreted inconjunction with the patient's clinical presentation,history and other laboratory results. If the results areinconsistent with clinical evidence, additional testing issuggested to confirm the result. Blood Venous blood specimen / Unknown 09/25/2024 8:35 AM EDT 09/25/2024 11:40 AM EDT us Lety Guaman MD LAB BLOOD ORDERABLES Final Result Performing Organization Address [facility]/ZIP Co de Phone Number [facility] [address] [place] [address] [phone] * HPV DNA, Low/High Risk (08/14/2024 3:30 PM EST) HPV High Risk Negative Negative [facility] HPV Genotype 16 Negative Negative [facility] HPV [facility]otype 18 Negative Negative [facility] Comment:HPV testing performe d at [facility] (CLIA#[id number]), [address] [place] [phone].Testing for HPV was performed using the [employer] ZANDRA 6800system. The presence of HPV in [...] ORDERAB LES Final Result Performing Organization Address City/State/[facility] Co de Phone Number [facility] [address] [place] [phone] * Pap Smear (08/14/2024 3:30 PM EST) 08/14/2024 3:30 PM EST 08/15/2024 8:10 AM EST Narrative [facility] - 08/21/2024 1:17 PM EST ----- ------- Name: Cami Hernandez Age/Sex: 59/F : 1965 Unit#: [id number] Attend Dr: Kannan Judd MD Re08/14/24 Status: DEP REF Location: [facility] Disch: ----- ------- SPEC : [id number] RECD: 08/15/24 STATUS: GERARDO COFFMAN NUM: [id number] ROCKY: 08/14/24 [facility] DR: Kannan Judd MD ENTERED: 08/15/24 SP TYPE: Pap Smr OTHR DR: [facility] ORDERED: Pap Smear Interpretation Satisfactory for evaluation. Negative for intraepithelial lesion or malignancy. HPV High Risk: Negative HPV Genotyping 16: Negative HPV Genotyping 18: Negative Clinical Information LMP: Previous PAP test: 2023, abnormal (NINO 3, HPV+) Other surgery: Other history: Material Received ThinPrep-Cervical Copies To: [address] [address] Kannan Judd MD [facility] [address] [place] [address] [address] [place] [address] ----- ------- Signed (signature on file) PEDRO Maciel ([facility]) 08/21/24 1317 ----- ------- END OF REPORT Generic External Data Provider LAB CYTOLOGY ORDE RODRI Final Result [facility] [address] [place] [address] [phone] * Colonoscopy (05/10/2023) Colonoscopy Normal Normal Narrative Yue Olea - 05/10/2023 Recommended 10 years. See see external hospital admission note on 05/10/2023 Historical Provider HEALTH MAINTENANCE Final Result from Last 3 Months or Most Recently Relevant to Health Maintenance [facility] Care Teams Supervisor Transcribing Operators Relationship Specialty Start Date End Date Lety Coronado MD [address] [place] [address] PCP - General Family Medicine 02/28/18 Agueda Barahona Piano Machine OperatorPhysical Therapy Aides Teacher 11/16/23
== END 2025-05-19 12:16 | disposition home or self-care (01) ==
LOC: HO.HSM 10:33
PROVIDERS: PCP Internal Medicine; Visit Provider Nurse Practitioner
DX: G43.709 Chronic migraine without aura, not intractable, without status migrainosus (principal)
CPT/HCPCS: 99214

== ENCOUNTER → 2025-05-19 10:33 | Outpatient (BNVA) | payer MEDICAID, SELFPAY | PROVIDERS: PCP Internal Medicine; Visit Provider Nurse Practitioner | DX: G43.709 Chronic migraine without aura, not intractable, without status migrainosus (principal) | CPT/HCPCS: 99212 ==